=== PATIENT | female | born 1995 | race Caucasian/White ===

== ENCOUNTER 2017-05-31 23:13 | Emergency (ER) | payer BC, OTHER ==
[2017-05-31 23:31] VITALS: BP 108/71; PULSE 112; TEMP 99.2; BMI 20.5
--- NOTE | 2017-06-01 00:44 | PDOC ---
History of Present Illness - General Chief Complaint: Cold Symptoms Stated Complaint: COLD SYMPTOMS Time Seen by Provider: 06/01/17 00:34 History Source: Patient Exam Limitations: No Limitations - History of Present Illness Initial Comments: 06/01/17 00:52 Best Contact: Pmhx: N/A Pshx: N/A Allergies: NKDA LMP: 05/30/2017 21-year-old female presents to the emergency department complaining of frontal headache, sore throat, subjective fever/chills, general malaise without nausea/ vomiting, dizziness, lightheadedness, facial pains, nasal congestion, rhinorrhea , earaches, neck stiffness/pain, back pains, chest pain, shortness of breath, abdominal pains, urinary symptoms. Patient states she is able to drink and eat without any difficulties but his throat is sore. Timing/Duration: reports: yesterday Past History - Past Medical History Allergies/Adverse Reactions: Allergies Allergy/AdvReac Type Severity Reaction Status Date / Time amoxicillin Allergy Verified 03/20/17 02:38 Home Medications: Ambulatory Orders NK [No Known Home Medication] 06/01/17 COPD: No GI Disorders: Yes (chronic pancreatitis) - Suicide/Smoking/Psychosocial Hx Smoking History: Never smoked Have you smoked in the past 12 months: No Information on smoking cessation initiated: No Hx Alcohol Use: No Drug/Substance Use Hx: No Review of Systems - Review of Systems Able to Perform ROS?: Yes Comments:: 06/01/17 00:54 CONSTITUTIONAL: +fever, chills, diaphoresis, generalized weakness, malaise Absent: diaphoresis, loss of appetite HEENT: Absent: rhinorrhea, nasal congestion, throat pain, throat swelling, difficulty swallowing, mouth swelling, ear pain, eye pain, visual Changes CARDIOVASCULAR: Absent: chest pain, loss of consciousness, palpitations, irregular heart rate, peripheral edema RESPIRATORY: Absent: cough, shortness of breath, dyspnea with exertion, orthopnea, wheezing, stridor, hemoptysis GASTROINTESTINAL: Absent: abdominal pain, abdominal distension, nausea, vomiting, diarrhea, constipation, melena, hematochezia GENITOURINARY: Absent: dysuria, frequency, urgency, hesitancy, hematuria, flank pain, genital pain MUSCULOSKELETAL: Absent: myalgia, arthralgia, joint swelling SKIN: Absent: rash, itching, pallor HEMATOLOGIC/IMMUNOLOGIC: Absent: easy bleeding, easy bruising, lymphadenopathy, frequent infections ENDOCRINE: Absent: unexplained weight gain, unexplained weight loss, heat intolerance, cold intolerance NEUROLOGIC: +frontal nolasco Absent: focal weakness or paresthesias, dizziness, unsteady gait, seizure, mental status changes, bladder or bowel incontinence Is the patient limited Japanese proficient: No *Physical Exam - Vital Signs Last Vital Signs Temp Pulse Resp BP Pulse Ox 99.2 F 112 H 20 108/71 98 05/31/17 23:29 05/31/17 23:29 05/31/17 23:29 05/31/17 23:29 05/31/17 23:29 - Physical Exam Comments: 06/01/17 00:55 GENERAL: Well developed, well nourished. Awake and alert. No acute distress. HEENT: Throat/tonsillar +erythema Normocephalic, atraumatic. PERRLA, EOMI. No conjunctival pallor. Sclera are non- icteric. Moist mucous membranes. NECK: Supple. Full ROM. No JVD. Carotid pulses 2+ and symmetric, without bruits. No thyromegaly. No lymphadenopathy. CARDIOVASCULAR: Regular rate and rhythm. No murmurs, rubs, or gallops. Distal pulses are 2+ and symmetric. PULMONARY: No evidence of respiratory distress. Lungs clear to auscultation bilaterally. No wheezing, rales or rhonchi. ABDOMINAL: Soft. Non-tender. Non-distended. No rebound or guarding. No organomegaly. Normoactive bowel sounds. MUSCULOSKELETAL Normal range of motion at all joints. No bony deformities or tenderness. No CVA tenderness. EXTREMITIES: No cyanosis. No clubbing. No edema. No calf tenderness. SKIN: Warm and dry. Normal capillary refill. No rashes. No jaundice. NEUROLOGICAL: Alert, awake, appropriate. Cranial nerves 2-12 intact. No deficits to light touch and temperature in face, upper extremities and lower extremities. No motor deficits in the in face, upper extremities and lower extremities. Normoreflexic in the upper and lower extremities. Normal speech. Toes are down- going bilaterally. Gait is normal without ataxia. *DC/Admit/Observation/Transfer Diagnosis at time of Disposition: Influenza, Viral pharyngitis Fever Qualifiers: Fever type: unspecified Qualified Code(s): R50.9 - Fever, unspecified - Discharge Dispostion Condition at time of disposition: Stable Admit: No - Referrals Referrals: John Walker MD [Staff Physician] - - Patient Instructions Printed Discharge Instructions: DI for Fever (Symptom) -- Adult, Influenza, DI for Viral Pharyngitis Additional Instructions: Increase fluids Take Tylenol alternating with Motrin as needed for pain or fever Return back to the emergency department for severe/persistent or worsening symptoms Follow-up with your physician within 48 hours - Post Discharge Activity
[2017-06-01] MEDS ORDERED: OSELTAMIVIR PHOSPHATE 75 MG CAPSULE PO ONE (01:21)
== END 2017-06-01 01:35 | disposition home or self-care (01) ==
LOC: JERFT 23:13
DX: J11.1 Influenza due to unidentified influenza virus with other respiratory manifestations (principal)
CPT/HCPCS: 87070; 87077; 87430; 99281-25

== ENCOUNTER 2017-06-17 10:55 | Observation (INO) | payer BC, OTHER ==
[2017-06-17 11:18] VITALS: BMI 20.5
[2017-06-17] MEDS ORDERED: CLINDAMYCIN 600MG PREMIX IVPB 600 MG/50 ML BAG IVPB ONE (11:41)
[2017-06-17] MEDS ORDERED: CIPROFLOXACIN 400 MG/D5W 400 MG/200 ML IVPB IVPB ONE (11:41)
[2017-06-17] MEDS ORDERED: CLINDAMYCIN PHOSPHATE 600 MG/4 ML VIAL ONE (11:48)
--- NOTE | 2017-06-17 12:12 | PDOC ---
History of Present Illness - General Chief Complaint: Bite Stated Complaint: CAT BITE Time Seen by Provider: 06/17/17 11:01 - History of Present Illness Initial Comments: 06/17/17 12:36 Chief complaint: Cat bite History of present illness: This is a 21-year-old female with no significant past medical history tetanus up-to-date who presents to the emergency department status post Date to her right index finger. Patient works at a [employer] office she was bit by a domiciled cat with unknown vaccination status. She sustained for small puncture bites to her right index finger no other injury sustained. Complaining of mild 5 out of 10 throbbing pain persistent constant no exacerbating or alleviating factors non-radiating Past History - Past Medical History Allergies/Adverse Reactions: Allergies Allergy/AdvReac Type Severity Reaction Status Date / Time amoxicillin Allergy Verified 03/20/17 02:38 Home Medications: Ambulatory Orders NK [No Known Home Medication] 06/17/17 COPD: No GI Disorders: Yes (chronic pancreatitis) - Immunization History TDAP Vaccination: Yes - Suicide/Smoking/Psychosocial Hx Smoking History: Never smoked Have you smoked in the past 12 months: No Hx Alcohol Use: No Drug/Substance Use Hx: No Substance Use Type: None Review of Systems - Review of Systems Comments:: 06/17/17 12:37 ROS: A complete review of 10 out of 10 review of systems is taken and is negative apart from what is previously mentioned below and in the HPI. *Physical Exam - Vital Signs Last Vital Signs Temp Pulse Resp BP Pulse Ox 98.5 F 80 15 115/77 100 06/17/17 10:58 06/17/17 10:58 06/17/17 10:58 06/17/17 10:58 06/17/17 10:58 - Physical Exam Comments: 06/17/17 12:38 Vitals: Triage Vital signs reviewed General Appearance: no acute distress, well nourished well developed, Head: Atraumatic, Cardiac: Regular rate and rhythym, no murmurs, no rubs, no gallops, Lungs: Clear to auscultation bilateral, good air movement bilaterally, Abdomen: Soft, non distended, normal bowel sounds, non tender to palpation Extremities: Full range of motion to all extremities, no cyanosis, clubbing, or edema, 2 small puncture wounds to the volar aspect of the right index finger 2 small puncture wounds to the dorsal aspect. Skin: Warm and dry, no rashes or lesions, no rash, no petechiae Neuro: AOX3; Cranial Nerves 2-12 grossly intact, Strength intact to all extremities, Sensation intact to all extremities,gait normal Psych: normal mood, normal affect ED Treatment Course - RADIOLOGY Radiology Studies Ordered: Category Date Time Status HAND- RIGHT [RAD] Stat Radiology 06/17/17 11:42 Ordered Medical Decision Making - Medical Decision Making 06/17/17 12:42 21 years old with cat bite to finger. Given high risk of potential deep tissue/tendon sheath infection will observe overnight with IV antibiotics Based on Allegra guidelines Cipro and Clinda ordered Dr. Alberto styles consulted. We'll observe overnight for further management. *DC/Admit/Observation/Transfer Diagnosis at time of Disposition: Cat bite Qualifiers: Encounter type: initial encounter Qualified Code(s): W55.01XA - Bitten by cat, initial encounter - Discharge Dispostion Condition at time of disposition: Good Admit: Yes - Referrals - Patient Instructions - Post Discharge Activity
[2017-06-17 13:04] LABS: BASO % 0.6 % (0-2.0); PLATELET COUNT 289 K/MM3 (134-434); RDW 12.4 % (11.6-15.6)
[2017-06-17 13:32] LABS: EOS % 1.7 % (0-4.5); HEMATOCRIT 41.2 % (32.4-45.2); HEMOGLOBIN 13.7 GM/dl (10.7-15.3); LYMPH % 25.5 % (8-40); MCH 29.6 pg (25.7-33.7); MCHC 33.4 g/dl (32.0-36.0); MEAN CELL VOLUME 88.6 fl (80-96); MEAN PLT VOLUME 9.4 fl (7.5-11.1); MONO % 6.4 % (3.8-10.2); NEUT % 65.8 % (42.8-82.8); RBC 4.64 M/mm3 (3.60-5.2); WHITE BLOOD COUNT 7.4 K/mm3 (4.0-10.8)
[2017-06-17 13:44] LABS: ALBUMIN 4.7 g/dl (3.5-5.0); ALK PHOS 73 U/L (32-92); ANION GAP 7 (8-16); BLOOD UREA NITROGEN 10 mg/dl (7-18); CALCIUM 9.6 mg/dl (8.4-10.2); CHLORIDE 102 mmol/L (98-107); CO2 24 mmol/L (22-28); CREATININE < 0.8 mg/dl (0.6-1.3); GLUCOSE,RANDOM 81 mg/dl (74-106); SGOT/AST 24 U/L (10-42); SGPT/ALT 26 U/L (10-40); SODIUM 133 mmol/L (136-145); TOT PROT 8.6 g/dl (6.4-8.3)
[2017-06-17] MEDS ORDERED: ONDANSETRON 4 MG/2 ML VIAL IVPB ONE (14:05)
--- NOTE | 2017-06-17 14:13 | HP ---
CHIEF COMPLAINT: cat bite PCP: Monique HISTORY OF PRESENT ILLNESS: Patient is a 21 y/o female with a past medical history of idiopathic pancreatits (childhood). 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 Patient reports the cat resides at home with branch coordinator. ER course was notable for: (1) xray of right hand, no retained foreign body Recent Travel: none PAST MEDICAL HISTORY: idiopathic pancreatitis (childhood) PAST SURGICAL HISTORY: none Social History: resides at home with mother Smoking: none Alcohol: none Drugs: none Family History: non contributory Allergies amoxicillin Allergy (Verified 03/20/17 02:38) HOME MEDICATIONS: Home Medications Medication Instructions Recorded NK [No Known Home Medication] 06/17/17 REVIEW OF SYSTEMS CONSTITUTIONAL: Absent: fever, chills, diaphoresis, generalized weakness, malaise, loss of appetite, weight change HEENT: Absent: rhinorrhea, nasal congestion, throat pain, throat swelling, difficulty swallowing, mouth swelling, ear pain, eye pain, visual changes CARDIOVASCULAR: Absent: chest pain, syncope, palpitations, irregular heart rate, lightheadedness , peripheral edema RESPIRATORY: Absent: cough, shortness of breath, dyspnea with exertion, orthopnea, wheezing, stridor, hemoptysis GASTROINTESTINAL: Absent: abdominal pain, abdominal distension, nausea, vomiting, diarrhea, constipation, melena, hematochezia GENITOURINARY: Absent: dysuria, frequency, urgency, hesitancy, hematuria, flank pain, genital pain MUSCULOSKELETAL: Present: finger pain Absent: myalgia, arthralgia, joint swelling, back pain, neck pain SKIN: Absent: rash, itching, pallor HEMATOLOGIC/IMMUNOLOGIC: Absent: easy bleeding, easy bruising, lymphadenopathy, frequent infections ENDOCRINE: Absent: unexplained weight gain, unexplained weight loss, heat intolerance, cold intolerance NEUROLOGIC: Absent: headache, focal weakness or paresthesias, dizziness, unsteady gait, seizure, mental status changes, bladder or bowel incontinence PSYCHIATRIC: Absent: anxiety, depression, suicidal or homicidal ideation, hallucinations. PHYSICAL EXAMINATION Vital Signs - 24 hr 06/17/17 06/17/17 10:58 13:46 Temperature 98.5 F 98.0 F Pulse Rate 80 72 Respiratory 15 22 Rate Blood Pressure 115/77 121/69 O2 Sat by Pulse 100 Oximetry (%) GENERAL: Awake, alert, and fully oriented, in no acute distress. HEAD: Normal with no signs of trauma. EYES: Pupils equal, round and reactive to light, extraocular movements intact, sclera anicteric, conjunctiva clear. No lid lag. EARS, NOSE, THROAT: Ears normal, nares patent, oropharynx clear without exudates. Moist mucous membranes. NECK: Normal range of motion, supple without lymphadenopathy, JVD, or masses. LUNGS: Breath sounds equal, clear to auscultation bilaterally. No wheezes, and no crackles. No accessory muscle use. HEART: Regular rate and rhythm, normal S1 and S2 without murmur, rub or gallop. ABDOMEN: Soft, nontender, not distended, normoactive bowel sounds, no guarding, no rebound, no masses. No hepatomegaly or splenomegaly. MUSCULOSKELETAL: Normal range of motion at all joints. No bony deformities or tenderness. No CVA tenderness. UPPER EXTREMITIES: 2+ pulses, warm, well-perfused. No cyanosis. No clubbing. No peripheral edema. LOWER EXTREMITIES: 2+ pulses, warm, well-perfused. No calf tenderness. No peripheral edema, right hand, second digit 2 punture wounds noted to dorsal aspect and 2 puncture wounds noted to volar aspect of digit, no erythema noted patient is able to flex and extend the digit w/o any difficulty. NEUROLOGICAL: Cranial nerves II-XII intact. Normal speech. Normal gait. PSYCHIATRIC: Cooperative. Good eye contact. Appropriate mood and affect. SKIN: Warm, dry, normal turgor, no rashes or lesions noted, normal capillary refill. Laboratory Results - last 24 hr 06/17/17 06/17/17 06/17/17 12:10 12:20 12:20 WBC 7.4 RBC 4.64 Hgb 13.7 Hct 41.2 MCV 88.6 MCH 29.6 MCHC 33.4 RDW 12.4 Plt Count 289 MPV 9.4 Neutrophils % 65.8 Lymphocytes % 25.5 Monocytes % 6.4 Eosinophils % 1.7 Basophils % 0.6 Sodium 133 L Potassium 4.0 Chloride 102 Carbon Dioxide 24 Anion Gap 7 L BUN 10 Creatinine < 0.8 Creat Clearance w eGFR > 60 Random Glucose 81 Calcium 9.6 Total Bilirubin 1.0 AST 24 ALT 26 Alkaline Phosphatase 73 Total Protein 8.6 H Albumin 4.7 Urine HCG, Qual Negative ASSESSMENT/PLAN: f/e/n - regular diet ppx - oob - less than 2 mn stay - pepcid dispo: pt requires obsv admission for 24 hours Problem List - Problem (1) Cat bite Assessment/Plan: - xray of right hand reviewed, continue cipro and clinda - monitor cbc and fever curve - appreciate hand surgery consult Code(s): W55.01XA - BITTEN BY CAT, INITIAL ENCOUNTER Qualifiers: Encounter type: initial encounter Qualified Code(s): W55.01XA - Bitten by cat, initial encounter Visit type - Emergency Visit Emergency Visit: Yes ED Registration Date: 06/17/17 Care time: The patient presented to the Emergency Department on the above date and was hospitalized for further evaluation of their emergent condition. - New Patient This patient is new to me today: Yes Date on this admission: 06/18/17 - Critical Care Critical Care patient: No Hospitalist Screening - Colonoscopy Questionnaire Colonoscopy Questionnaire: Colonoscopy Questionnaire - Patient: 50 - 75 years old and never had a screening colonoscopy: No History of colon or rectal polyps, or CA: No History of IBD, Crohn's disease or UC: No History of abdominal radiation therapy as a child: No - Relative: 1 with colon or rectal CA, or polyps at age 60 or younger: No Colon or rectal CA diagnosed at age 45 or younger: No Multiple relatives with colon or rectal CA: No - Outcome: Screening Result: Negative Screen
[2017-06-17] MEDS ORDERED: ACETAMINOPHEN 325 MG TABLET (FP) PO PRN (14:30)
[2017-06-17] MEDS ORDERED: IBUPROFEN 600 MG TABLET (FP) PO PRN (14:31)
[2017-06-17] MEDS: LACTOBACILLUS ACIDOPHILUS 1 EACH TAB (FP) PO SCH (14:45)
[2017-06-17] MEDS ORDERED: DIPHTH,PERTUSS(ACELL),TET VAC 0.5 ML VIAL IM ONE (15:00)
[2017-06-17] MEDS: CLINDAMYCIN 600MG PREMIX IVPB 600 MG/50 ML BAG IVPB SCH (17:40)
[2017-06-17] MEDS: CIPROFLOXACIN 400 MG/D5W 400 MG/200 ML IVPB IVPB SCH (21:27)
[2017-06-17] MEDS: FAMOTIDINE 20 MG TABLET PO SCH (21:27)
[2017-06-17] MEDS: ONDANSETRON *ODT* 4 MG TABLET SL PRN (21:28)
[2017-06-18] MEDS: CLINDAMYCIN 600MG PREMIX IVPB 600 MG/50 ML BAG IVPB SCH ×2 (02:00→09:49)
[2017-06-18 06:02] VITALS: BP 98/53; PULSE 85; TEMP 98.1
[2017-06-18] MEDS: CIPROFLOXACIN 400 MG/D5W 400 MG/200 ML IVPB IVPB SCH (09:49)
[2017-06-18] MEDS: ONDANSETRON *ODT* 4 MG TABLET SL PRN (09:49)
[2017-06-18] MEDS: LACTOBACILLUS ACIDOPHILUS 1 EACH TAB (FP) PO SCH (09:50)
[2017-06-18] MEDS: FAMOTIDINE 20 MG TABLET PO SCH (09:50)
--- NOTE | 2017-06-18 12:21 | DS ---
Physical Exam: SUBJECTIVE: Patient seen and examined, denies any pain to the right 2nd digit, patient is able to flex and extend the digit without any difficulty, patient denies any paresthesia to the extremity. OBJECTIVE: Patient is a 21 y/o female with a past medical history of idiopathic pancreatits (childhood). 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 Patient reports the cat resides at home with tool supervisor. ER course was notable for: (1) xray of right hand, no retained foreign body Vital Signs Period Temp Pulse Resp BP Sys/Petty Pulse Ox Last 24 Hr 98.0 F-99.4 F 72-85 20-22 98-150/53-84 98 PHYSICAL EXAM GENERAL: The patient is awake, alert, and fully oriented, in no acute distress. HEAD: Normal with no signs of trauma. EYES: PERRL, extraocular movements intact, sclera anicteric, conjunctiva clear. ENT: Ears normal, nares patent, oropharynx clear without exudates, moist mucous membranes. NECK: Trachea midline, full range of motion, supple. LUNGS: Breath sounds equal, clear to auscultation bilaterally, no wheezes, no crackles, no accessory muscle use. HEART: Regular rate and rhythm, S1, S2 without murmur, rub or gallop. ABDOMEN: Soft, nontender, nondistended, normoactive bowel sounds, no guarding, no rebound, no hepatosplenomegaly, no masses. EXTREMITIES: 2+ pulses, warm, well-perfused, no edema. NEUROLOGICAL: Cranial nerves II through XII grossly intact. Normal speech, gait not observed. PSYCH: Normal mood, normal affect. SKIN: Warm, dry, normal turgor, no rashes or lesions noted. LABS Laboratory Results - last 24 hr 06/17/17 06/17/17 06/17/17 12:10 12:20 12:20 WBC 7.4 RBC 4.64 Hgb 13.7 Hct 41.2 MCV 88.6 MCH 29.6 MCHC 33.4 RDW 12.4 Plt Count 289 MPV 9.4 Neutrophils % 65.8 Lymphocytes % 25.5 Monocytes % 6.4 Eosinophils % 1.7 Basophils % 0.6 Sodium 133 L Potassium 4.0 Chloride 102 Carbon Dioxide 24 Anion Gap 7 L BUN 10 Creatinine < 0.8 Creat Clearance w eGFR > 60 Random Glucose 81 Calcium 9.6 Total Bilirubin 1.0 AST 24 ALT 26 Alkaline Phosphatase 73 Total Protein 8.6 H Albumin 4.7 Urine HCG, Qual Negative HOSPITAL COURSE: Patient was admitted from the emergency department to observation for cat bite to the right 2nd digit. She was treated with 24 hours of cipro and clindamycin, no leukocytosis was noted and patient remained afebrile. Hand surgeon, Dr Aleman was consulted by ED physician plan - discharge home with 7 days of clinda and cipro - strict follow up with PCP within 2 days for a wound check - return precautions reviewed Date of Admission:06/17/17 Date of Discharge: 06/18/17 Minutes to complete discharge: 45 Discharge Summary Reason For Visit: CAT BITE Current Active Problems Cat bite (Acute) Condition: Good - Instructions Diet, Activity, Other Instructions: keep punctures wounds clean and dry at all times wash with mild soap and water only continue ciprofloxacin and clindamycin for the next 7 days take antibiotics with food continue bacid daily please follow up with your primary care physician within 2 days for a wound check if any new or persistent symptoms develop please return to the emergency department Referrals: Bennett Marroquin MD [Staff Physician] - Blanca Amaya MD [Staff Physician] - 06/21/17 - Home Medications Comprehensive Discharge Medication List: Ambulatory Orders NK [No Known Home Medication] 06/17/17 Problem List - Problems (1) Cat bite Code(s): W55.01XA - BITTEN BY CAT, INITIAL ENCOUNTER Qualifiers: Encounter type: initial encounter Qualified Code(s): W55.01XA - Bitten by cat, initial encounter This patient is new to me today: Yes Date on this admission: 06/18/17 Emergency Visit: No Critical Care patient: No - Discharge Referral Referred to [facility] No
--- NOTE | 2017-06-19 01:17 | EKG ---
Test Reason : Blood Pressure : / mmHG Vent. Rate : 070 BPM Atrial Rate : 070 BPM P-R Int : 180 ms QRS Dur : 082 ms QT Int : 388 ms P-R-T Axes : 065 090 048 degrees QTc Int : 419 ms SINUS RHYTHM RSR' OR QR PATTERN IN V1 SUGGESTS RIGHT VENTRICULAR CONDUCTION DELAY NO PREVIOUS ECGS AVAILABLE Confirmed by ELIZABETH GALARZA MD ([id number]) on 06/19/2017 1:16:46 AM Referred By: BRENDA DEXTER Confirmed By:ELIZABETH GALARZA MD
== END 2017-06-18 12:55 | disposition home or self-care (01) ==
LOC: FER 10:55 → FM/S 13:19
PROVIDERS: ADMIT Internal Medicine; ATTEND Nurse Practitioner Family
PROC: 3E03329 Introduction of Other Anti-infective into Peripheral Vein, Percutaneous Approach (ICD-10-PCS; principal; 2017-06-17)
PROC: 3E033GC Introduction of Other Therapeutic Substance into Peripheral Vein, Percutaneous Approach (ICD-10-PCS; 2017-06-17)
DX: S61.250A Open bite of right index finger without damage to nail, initial encounter (principal); W55.01XA Bitten by cat, initial encounter; Y93.89 Activity, other specified; Y92.89 Other specified places as the place of occurrence of the external cause; Z88.0 Allergy status to penicillin
CPT/HCPCS: 36415; 73130-TC-RT-FY; 80053; 84703; 85025; 93005; 99285-25; G0378

== ENCOUNTER 2020-01-21 12:42 | Emergency (ER) | payer BC, OTHER ==
[2020-01-21 12:54] VITALS: BMI 18.8
--- OUTSIDE RECORDS SUMMARY | 2020-01-21 12:58 | XMS ---
:[address] [facility] Care Team Providers Name Role Phone ROBIN JEAN-BAPTISTE Unavailable Unavailable Agugua-Anyene Unavailable Julito Unavailable NATE Unavailable Unavailable PEDRO-VARNADERNELLY Unavailable Unavailable Pedro-Nadeemtheron Unavailable CHAGO Unavailable Unavailable DAVID Unavailable Unavailable Nate PA Unavailable + Nate PA Unavailable + John BLACK Unavailable Unavailable Chago Unavailable Chago Unavailable David Unavailable David Unavailable David Unavailable WAYNE Unavailable WAYNE Unavailable WAYNE Unavailable WAYNE Unavailable WAYNE Unavailable WAYNE Unavailable BLACK Unavailable BLACK Unavailable Jude Unavailable Yoon Unavailable Kipoliongo, Michelle Unavailable Kipoliongo, Michelle Unavailable Kipoliongo, Michelle Unavailable Kipoliongo, Michelle Unavailable Kipoliongo, Michelle Unavailable Kipoliongo, Michelle Unavailable Nwigwe, O. Unavailable [facility] Unavailable Unavailable Leopoldo Unavailable Leopoldo Unavailable JULITO Unavailable Unavailable AGUGUA-ANYENE Unavailable Unavailable LEOPOLDO Unavailable Unavailable YOON Unavailable Unavailable Re-disclosure Warning The records that you are about to access may contain information from federally- assisted alcohol or drug abuse programs. If such information is present, then the following federally mandated warning applies: This information has been disclosed to you from records protected by federal confidentiality rules (42 CFR part 2). The federal rules prohibit you from making any further disclosure of this information unless further disclosure is expressly permitted by the written consent of the person to whom it pertains or as otherwise permitted by 42 CFR part 2. A general authorization for the release of medical or other information is NOT sufficient for this purpose. The Federal rules restrict any use of the information to criminally investigate or prosecute any alcohol or drug abuse patient.The records that you are about to access may contain highly sensitive health information, the redisclosure of which is protected by Article 27-F of the [facility] Public Health law. If you continue you may haveaccess to information: Regarding HIV / AIDS; Provided by facilities licensed or operated by the [facility] Office of Mental Health; or Provided by the [facility] Office for People With Developmental Disabilities. If such information is present, then the following [facility] mandated warning applies: This information has been disclosed to you from confidential records which are protected by state law. State law prohibits you from making any further disclosure of this information without the specific written consent of the person to whom it pertains, or as otherwise permitted by law. Any unauthorized further disclosure in violation of state law may result in a fine or [place] health [facility] [place] sentence or both. A general authorization for the release of medical or other information is NOT sufficient authorization for further disclosure. Allergies and Adverse Reactions Type Description Substance Reaction Status Data Source(s ) NO KNOWN DRUG ALLERGIES NO KNOWN DRUG ALLERGIES NEXTGEN ([facility] HYDROMORPHONE HCL HYDROMORPHONE HCL [facility]EXTGEN ([facility] [place] [facility] AMOXICILLIN Amoxicillin [facility] ([facility] [place] ) Encounters Encounter Providers Location Date Indications Data Source(s ) Outpatient 11/11/2019 [facility] ) AM EDT Outpatient 11/10/2019 [facility] ) AM EDT Unlisted 10/24/2019 NETSMART evaluation and 09:40:00 (Access: management PM EDT Supports for service Living) Outpatient 09/21/2019 [facility] ([facility] ) AM EDT Outpatient 09/20/2019 [facility] ([facility] ) AM EDT Outpatient Att[facility]: [facility] 08/07/2019 [facility] 09:01:26 [facility] Outpatient Att[facility]: [facility] 08/07/2019 [facility] 08:24:00 ([facility]) Outpatient Attender: [facility] 08/07/2019 [facility] 08:22:01 ([facility]) 08/01/2019 Naresh Matias 10:38:51 AM EDT Attender: Rudolph 08/01/2019 Naresh gonzales NwigweAttender: 10:37:00 Lamin Roque AM EDT - 08/01/2019 08:53:00 PM EDT Attender: Robin 08/01/2019 Naresh [facility] KipoliongoAdmitt 06:46:14 er: Robin AM EDT - [place] 08/04/2019 03:15:00 PM EDT Attender: ROBIN 3SOUTH-6NORTH 08/01/2019 [facility] KIPOLIONGOAdmitt 05:30:00 er: ROBIN AM EDT - POL[place] 08/04/2019 03:15:00 PM EDT Patient discharged. Attender: Rahelgabriel 06/24/2019 02:35:16 PM [facility] OwensAdmitter: [facility] EDT - 06/24/2019 David 03:46:00 PM EDT Attender: RAHELGABRIEL [address] [place] [address] 06/24/2019 01:26:59 PM [facility] OWENSAdmitter: [facility] - 06/24/2019 DAVID 03:46:00 PM EDT Patient discharged. Outpatient 04/22/2019 07:30:00 [facility] ([facility]) Outpatient 04/21/2019 07:22:00 [facility]EXTG EN ([facility]) Outpatient 04/16/2019 06:56:00 [facility]EXTG EN ([facility]) Outpatient 04/15/2019 07:19:00 [facility]EXTG EN ([facility]) Attender: Ayla 03/30/2019 11:03:24 [facility] EST - 03/30/2019 11:02:20 AM EST Attender: AYLA FRANKLIN-POAlvaro 03/30/2019 10:32:20 [facility] AM EST - 03/30/2019 01:51:05 PM EST Attender: Марина 03/27/2019 10:02:19 [facility] EST - 03/27/2019 03:27:00 PM EST [facility] 03/27/2019 09:41:00 [facility] AM EST - 03/27/2019 03:27:00 PM EST Patient discharged. Attender: OLAMIDE 03/14/2019 Naresh BLACK 12:28:39 PM EST - 03/14/2019 11:59:00 PM EST Attender: OLAMIDE FRANKLIN-POB 03/14/2019 [facility] Polly BLACK 10:50:27 AM EST [facility] 03/14/2019 [email or web address] 12:00:00 AM EST [facility] [employer]) Attender: OLAMIDE 02/20/2019 Naresh BLACK 01:37:20 PM EST - 02/20/2019 11:59:00 PM EST Attender: OLAMIDE FIGUEROA SDS-POB US 02/20/2019 Denise Matias WAYNE 10:14:07 AM EST Attender: 02/17/2019 [facility] Alevism Chago 07:07:39 PM EST - 02/17/2019 07:16:00 PM EST Attender: [address] [place] [address] ED 02/17/2019 [place] [facility] VIVI ABELO 04:32:00 PM EST - 02/17/2019 07:16:00 PM EST Patient discharged. [facility] 02/14/2019 eCW2 ([facility] 12:00:00 AM EST Medical) Attender: Shivam 02/11/2019 Naresh CURRY 02:31:33 PM EDT - 03/08/2019 06:16:57 PM EST Attender: SHIVAM FIGUEROA UC-POB UC 02/11/2019 [facility] NATE 01:33:11 PM EDT Attender: [facility] 05[facility]27[facility]45 PM EDT - 02/03/2019 07:47:00 PM EDT Attender: [address] [place] [address] ED 02/03/2019 [facility] DRUZE CHAGO 05:05:00 PM EDT - 02/03/2019 07:47:00 PM EDT Patient discharged. Outpatient 01/26/2019 06:50:00 NEXTG EN ([facility]) Outpatient 01/25/2019 06:49:00 [facility]EXTG EN ([facility]) Outpatient [facility] 01/24/2019 12:00:00 e CW3 ([facility] A28 AM EDT - 01/24/2019 Health Care) 12:00:00 AM EDT Outpatient 01/08/2019 06:19:00 NEXTG EN ([facility] AM [facility]T [facility]) Outpatient 01/07/2019 06:33:00 [facility]EXT[facility] EN ([facility]) Outpatient 01/06/2019 06:37:00 NEXTG EN ([facility]T [facility]) Attender: Shazia 01/02/2019 04:56:35 [facility] PM EDT - 01/02/2019 enrike: Марина 05:30:00 PM EDT Leopoldo Attender: SHAZIA [address] [place] [address] ED 01/02/2019 03:09:00 [facility] PM EDT - 01/02/2019 enrike: МАРИНА 05:30:00 PM EDT LEOPOLDO Patient discharged. Attender: Robin 12/16/2018 01:22:[address] [facility] 12/16/2018 11:59:00 PM EDT Attender: ROBIN FIGUEROA [facility] 12/16/2018 12:40:15 PM EDT [facility] 12/14/2018 12:00:00 AM EDT [facility] 12/14/2018 12:00:00 AM EDT Attender: Becca Yoon 12/04/2018 12:06:03 PM EDT [facility] - 12/04/2018 02:04:00 PM EDT Attender: BECCA YOON [address] [place] [address] ED 12/04/2018 12:00:00 PM EDT [facility] - 12/04/2018 02:04:00 PM EDT Patient discharged. Outpatient 12/04/2018 06:23:00 [facility] Attender: Camelia 12/02/2018 04:39:48 [facility] PM EDT - 12/02/2018 08:13:00 PM EDT Attender: CAMELIA [address] [place] [address] 12/02/2018 04:36:00 [facility] ED PM EDT - 12/02/2018 08:13:00 PM EDT Patient discharged. [address] [place] [address] ED 12/01/2018 08:54:00 PM EDT - 12:05:00 [facility] EDT Patient discharged. Medications Medication Brand Start Product Dose Route Administrative Pharmacy [facility] Indications Reaction Description Data Name Date Form Instructions Instructions Source(s) Acetaminoph oxycod Oral complet Take 1 [place] en 325 MG / one-ac 2020 {tbl} ed tablet by Health Oxycodone etamin 12:00: mouth every Hydrochlori ophen 00 AM 6 (six) de 5 MG (PERCO EDT hours as Oral Tablet CET) needed for oxycodone-a 5-325 Pain. Max cetaminophe MG per Daily n tablet Amount: 4 (PERCOCET) tablets. 5-325 MG per tablet Take 1 tablet by mouth every 6 (six) jocelyn rs as needed for Pain. Max Daily Amount: 4 tablets. Docusate docusate 08/04/2019 100 mg Oral completed Take 100 [place] Sodium 100 sodium 100 12:00:00 AM m g by Health MG Oral MG CAPS EDT mouth 2 Capsule (two) docusate times sodium 100 daily MG CAPS for 10 days. Take 100 mg by mouth 2 (two) times daily for 10 days. Ibuprofen 600 MG ibuprofen 08/04/2019 600 Oral completed Take 1 [place] Oral Tablet (ADVIL,MOTRIN) 12:00:00 AM mg tablet Health ibuprofen 600 MG tablet EDT by (ADVIL,MOTRIN) mouth 600 MG tablet every 6 (six) hours as needed for up to 10 days. Take 1 tablet by mouth every 6 (six) jocelyn rs as needed for up to 10 days. ferrous ferrous 08/03/2019 324 mg Oral completed 3 24 mg, [place] gluconate gluconate 05:00:00 PM Leeanne corley 2 Health 324 MG Oral (FERGON) EDT TIMES Tablet tablet 324 DAILY ferrous mg WITH gluconate MEALS, (FERGON) First tablet 324 dose on mg Yasmine 08/03/19 at 1700, For 30 days Medication administered onsite [facility] [id number] 08/02/2019 1 Oral completed 1 tablet, Oral, [place] multivitamin 10:00:00 AM {tbl} ABBY Y, First dose on Health tablet 1 EDT 08/02/19 at 1 000, tablet For 30 days
Beg in when normal bowel activity resumes.
Post-op Medication administered onsite 0.4 ML enoxaparin 08/02/2019 40 Subcutaneous completed 40 mg, [place] Enoxaparin (LOVENOX) 10:00:00 AM mg [place] bcutaneous, Health sodium 100 injection EDT DAILY, Fi rst MG/ML 40 mg dose on Wed Prefilled 08/02/19 at Syringe 1000, For 5 enoxaparin days, Post-op (LOVENOX) injection 40 mg Medication administered onsite Diphenhydramine diphenhydrAMINE 08/02/2019 50 Oral complet ed 50 mg, [place] Hydrochloride 25 (BENADRYL) 04:29:01 AM mg Oral, Health MG Oral Capsule capsule 50 mg EDT EVERY 6 diphenhydrAMINE HOURS (BENADRYL) PRN, capsule 50 mg Itching, Starting Wed08/02/19 at 0429, For 30 days Medication administered onsite Oxytocin [address]-64 08/01/2019 125 Intravenous comp leted 125 mL/hr, Intravenous, at [place] (PITOCIN) 11:30:00 PM mL/h 125 mL/h r, CONTINUOUS, Health 20 units EDT Starting 07/12 at in LR 1000 2330, For 30 mL days
Oxytocin to be start ed AFTER delivery.S tart at an initial rate o f 999 mL/hr for 30 minutes (VTBI: 500 mL), foll owed by 125 mL/hr. May titrate up or down a s needed based on fund al tone/bleeding.
Po st-op Medication administered onsite Docusate docusate 08/01/2019 100 Oral completed 1 00 mg, Oral, 2 TIMES [place] Sodium 100 sodium 11:30:00 PM mg DAILY , First dose on Health MG Oral (COLACE) EDT Wed08/01/19 a t 2330, Capsule capsule For 30 days
Hold docusate 100 mg for sodium diarrhea.
Post- op (COLACE) capsule 100 mg Medication administered onsite Acetaminophen acetaminophen 08/01/2019 650 Oral completed 650 mg, Oral, [place] 325 MG Oral (TYLENOL) 11:24:25 PM mg E VERY 6 HOURS PRN, Health Tablet tablet 650 mg EDT Headaches , Mild acetaminophen pain (1-3), First (TYLENOL) agent for tablet 650 mg multi-modal pain management therapy, Starting Wed08/01/19 at 2324, For 30 days
Maximum dose of acetaminophen is 4000 mg from all sources in 24 hours.
Post-op Medication administered onsite Ibuprofen 600 ibuprofen 08/01/2019 600 Oral completed 600 mg, Oral, [place] MG Oral Tablet (ADVIL,MOTRIN) 11:24:25 PM mg EVERY 6 HOURS PRN, Health ibuprofen tablet 600 mg EDT Modera te pain (ADVIL,MOTRIN) (4-6), Mod erate tablet 600 mg pain (4-6), Starting Wed08/01/19 at 2324, For 30 days
Maximum dose of Ibuprofen is 2400mg from all sources in 24 hours.
Post-op Medication administered onsite Lanolin lanolin 08/01/2019 Topical completed Topical, EVERY 1 HOUR [place] 0.5 MG/MG ointment 11:24:25 PM PRN, Dry Skin, PRN for Health Topical EDT nipple discomfort , Ointment Starting 07/12 at lanolin 2324, For 30 ointment days
PRN for nipple discomfort.
Post- op Medication administered onsite 2 ML Rho(D) rho(d) 08/01/2019 300 Intramuscular completed 300 mcg, [place] Immune immune 09:15:00 PM ug Intramusc ular, Health Globulin 750 globulin EDT ONCE, e UNT/ML (RHOPHYLAC) 08/01/19 at Prefilled injection 2114, For 1 Syringe 300 mcg dose rho(d) immune globulin (RHOPHYLAC) injection 300 mcg Medication administered onsite ondansetron 08/01/2019 4 mg Oral completed [O rder 1 Start] [place] (ZOFRAN-ODT) 09:05:18 PM Name: ondansetron Health disintegrating EDT (ZOFRAN-OD T) tablet 4 mg disintegratin g tablet 4 mg Signed Summary: 4 mg, Oral, EVERY 6 HOURS PRN, Nausea, Vomiting, Starting Wed08/01/19 at 2105, For 30 days
Do not remove from blister until needed. Peel backing off the blister, do not push tablet through. Using only dry hands, place tablet on tongue to dissolve. Place tablet on tongue, it will disintegrate immediately - swallow with saliva; may also swallow with fluids as whole tablet.
PACU [Order 1 End] [Order 2 Start] Name: ondansetron (ZOFRAN) injection 4 mg Signed Summary: 4 mg, IV Push, EVERY 6 HOURS PRN, Nausea, Vomiting, Give if patient is NPO or vomiting., Starting Wed20 at 2104, For 30 days
If given IV Push, May be given undiluted and Push over 2 minutes.
PACU [Order 2 End] Medication administered onsite Acetaminophen acetaminophen 08/01/2019 1000 Intravenous completed 1,000 mg, [place] 10 MG/ML (OFIRMEV) 09:04:58 PM mg Intr avenous, Health Injectable injection EDT Administe r over Solution 1,000 mg 15 Minutes, 3 acetaminophen TIMES DAILY PRN, (OFIRMEV) Mild pain (1-3) , injection Starting Tue 1,000 mg 08/01/19 at 2103, For 5 doses
Maximum dose of acetaminophen is 4000 mg from all sources in 24 hours.
Medication administered onsite 1 ML Ketorolac ketorolac 08/01/2019 30 IV completed 30 mg, IV Push, [place] Tromethamine (TORADOL) 09:04:42 PM mg Push EVERY 6 HOURS Health 30 MG/ML injection EDT PRN, Mild p ain Cartridge 30 mg (1-3), Startin g ketorolac e 08/01/19 at (TORADOL) 2103, For 5 injection 30 days
If g iven mg IV Push, May be given undiluted and Push over 1 minute.
PACU Medication administered onsite 1 ML Naloxone naloxone 08/01/2019 0.2 IV completed 0.2 mg, IV Push, [place] Hydrochloride (NARCAN) 09:04:24 PM mg Push ONCE PRN, Opioid Health 0.4 MG/ML injection EDT Reversal, Starting Injection 0.2 mg Wed08/01/19 a t naloxone 2103, For 1 (NARCAN) dose
for injection 0.2 sedation sc ruthann mg greater than or equal to 4 and Respiratory Rate less than 8 per minuteNotify Anesthesiologist STAT.(If given IV Push, May be given undiluted and Push over 15 seconds.)
PACU Medication administered onsite Methylergonovine methylergonovine 08/01/2019 compl eted PRN, [place] Maleate 0.2 MG/ML (METHERGINE) 08:35:00 PM Starting Health Injectable injection EDT e Solution at 2034, methylergonovine Anesthes ia (METHERGINE) Intra-op injection Medication administered onsite Oxytocin [id number] 08/01/2019 completed CONTINUOUS [place] (PITOCIN) 20 08:33:00 PM PRN, Starting Health units in LR EDT Wed08/01/19 1000 mL at 2032, Anesthesia Intra-op Medication administered onsite Ephedrine ePHEDrine 08/01/2019 completed PRN, Starting [place] sulfate 50 Sulfate 08:31:00 PM Wed08/01/19 Health MG/ML injection EDT at 2030, Injectable Anesthesia Solution Intra-op ePHEDrine Sulfate injection Medication administered onsite morphine (PF) 8517-0051-86 08/01/2019 completed PRN, Starting [place] (DURAMORPH) 08:22:00 PM [facility] injection EDT at 2021, Anesthesia Intra-op Medication administered onsite bupivacaine 0.75% [id number] 08/01/2019 completed PRN, Starting [place] in dextrose 8.25% 08:22:00 PM Wed08/01/19 at [facility] (intrathecal) EDT 2021, (SENSORCAINE) Anesthesia 0.75-8.25 % Intra-op injection Medication administered onsite Clindamycin clindamycin 08/01/2019 900 Intravenous complete d 900 mg, [place] 18 MG/ML (CLEOCIN) 07:45:00 PM mg Intr avenous, [facility] Injectable 900 mg in 50 EDT Admini ster Solution mL IVPB over 60 clindamycin Minutes, (CLEOCIN) EVERY 8 900 mg in 50 HOURS, First mL IVPB dose on Wed08/01/19 at 1945, For 4 doses Medication administered onsite Acetaminophen acetaminophen 08/01/2019 650 Oral completed 650 mg, Oral, [place] 325 MG Oral (TYLENOL) 07:45:00 PM mg O NHE, [facility] Tablet tablet 650 mg EDT 08/01/19 a t 1945, acetaminophen For 1 (TYLENOL) dose
Maximum tablet 650 mg dose of acetaminophen is 4000 mg from all sources in 24 hours.
Medication administered onsite gentamicin 08/01/2019 5 mg/kg Intravenous completed 350 mg (rounded [place] (GARAMYCIN) 07:45:00 PM from 3 51.5 mg = Health 350 mg in EDT 5 mg /kg 0.9% sodium chloride 100 70.3 kg), mL IVPB Intravenous, Administer over 60 Minutes, EVERY 24 HOURS, First dose on Wed08/01/19 at 1945, For [address] an order for a random level to be drawn 12 hours after the start of the first dose. Before administration of next dose, contact the physician with the result to determine if an interval change is needed. Special instructions none
Medication administered onsite Acetaminophen acetaminophen 08/01/2019 completed Starting Wed [place] 325 MG Oral (TYLENOL) 325 07:43:24 PM 08/01/19 at Health Tablet MG tablet EDT 1943, For 1 acetaminophen dose
Del (TYLENOL) 325 [place], Ana Laura: MG tablet cabinet override
Medication administered onsite ondansetron [id number] 08/01/2019 4 mg IV completed 4 mg, IV [place] (ZOFRAN) 06:17:05 PM Push Push, GEM RY 6 Health injection 4 EDT HOURS PRN, mg Nausea, Vomiting, Starting Wed08/01/19 at 1817, For 3 days
If given IV Push, May be given undiluted and Push over 2 minutes.
Medication administered onsite oxytocin 88820-780-13 08/01/2019 Intravenous compl eted 0.5-42 dolly-units/min [place] (PITOCIN) 01:00:00 PM (0.5-42 mL/hr), Health 30 units EDT Intravenous, at 0.5-42 in 0.9% mL/hr, CONTINUOUS , sodium Starting Wed at chloride 1300, For 30 500 mL days
Start at 1 milliunits/min and increase by 2 milliunits/min (1 or 2 milliunits/min)e very 30 minutes until wil quate contraction pattern established (every 2 -3 minutes lasting 40-9 0 seconds). Consultati on with physician is required at 20milliunits/min. (Maximumdose is 42 milliunits/min). If uterine tachysystole or category 2 or 3 FHR tracing, may decreas e infusion rate or discontinue oxytocin and initiate appropriate uterine resuscitatio n techniques (Rate may be adjusted based on maternal and response)
Medication administered onsite oxytocin [id number] 08/01/2019 completed Starting Tue [place] (PITOCIN) 12:58:02 PM 08/01/19 at 1258, Health 30-0.9 EDT For 1 UT/500ML-% dose
Mcdono ugh, 30 units in Maryann: cab inet 0.9% sodium override
chloride 500 mL Medication administered onsite ropivacaine PCEA (2 08/01/2019 completed Starting Tue [place] mg/mL) (NAROPIN) 2 10:45:52 AM 08/01/19 at 1045, Health MG/ML in 50 mL syringe EDT Fo r 1 (preservative-free) dose< br>NWIGWE, Ebube: cabinet override
Medication administered onsite Calcium lactated 08/01/2019 1000 Intravenous completed at 999 mL/hr, [place] Chloride ringers 10:45:00 AM mL Intrav enous, Health 0.0014 infusion EDT ONCE, Tue MEQ/ML / 1,000 mL 08/01/19 at Potassium 1045, For 1 Chloride dose
15 to 0.004 30 minutes MEQ/ML / before epidural Sodium placement.
Chloride 0.103 MEQ/ML / Sodium Lactate 0.028 MEQ/ML Injectable Solution lactated ringers infusion 1,000 mL Medication administered onsite ropivacaine 08/01/2019 Epidural completed Epidural, [place] (NAROPIN)(PF) 10:45:00 AM CONT INUOUS, Health PCEA standard EDT Starting Tu e 100 mg in 50 mL 08/01/19 a t 1045, syringe For 3 days
After 4 hours, if patient persistently complains of inadequate analgesia, check pump for malfunction, verify pump settings with orders and assess integrity of IV site.Nurse may replace empty infusion syringes or infusion bags with new, pre-prepared solutions containing the same medication and concentration at the same rate.
Medication administered onsite lactated [id number] 08/01/2019 500 Intravenous completed 500 mL, [place] ringers 06:30:00 AM mL Intravenou s, Health bolus 500 EDT Administer mL over 2 Hours, ONCE, 08/01/19 at 0630, For 1 dose Medication administered onsite Calcium lactated 08/01/2019 100 Intravenous completed at 100 mL/hr, [place] Chloride ringers 06:30:00 AM mL/h Intrav enous, Health 0.0014 infusion EDT CONTINUOUS, MEQ/ML / Starting Tue Potassium 08/01/19 at Chloride 0630, For 3 0.004 MEQ/ML days / Sodium Chloride 0.103 MEQ/ML / Sodium Lactate 0.028 MEQ/ML Injectable Solution lactated ringers infusion Medication administered onsite NITROFURANTOIN, nitrofurantoin 03/27/2019 100 Oral complete d 100 mg, [place] MACROCRYSTALS 25 MG / (macrocrystal-monohydrate) 03:00:00 PM mg Oral, Health Nitrofurantoin, Monohydrate (MACROBID) capsule 100 mg EST ONCE, Mon 75 MG Oral Capsule nitrofurantoin at 1500, (macrocrystal-monohydrate) For 1 (MACROBID) capsule 100 mg dose Medication administered onsite diphenhydrAMINE [id number] 03/27/2019 25 IV completed 25 mg, IV [place] (BENADRYL) 02:15:00 PM mg Push Push, ONCE, Health injection 25 mg EST Mon 03/27 at 1415, For 1 dose
If given IV Push, May be given undiluted and Push each 25mg or fraction thereof over 1 minute.
Medication administered onsite 2 ML metoclopramide 03/27/2019 10 IV completed 10 mg, IV [place] Metoclopramide 5 (REGLAN) 02:15:00 PM mg Push Push, ONCE, Health MG/ML Prefilled injection 10 mg EST Wed03/27/19 Syringe at 1415, For metoclopramide 1 dose
If (REGLAN) given IV injection 10 mg Push, No dilution required for doses up to 10mg and Push each 10 mg or fraction thereof over 2 minutes.
Medication administered onsite sodium [id number] 03/27/2019 1000 Intravenous completed 1,000 mL, [place] chloride 02:15:00 PM mL Intraveno us, Health 0.9 % EST Administer bolus over 1 Hours, 1,000 mL ONCE, 03/27/19 at 1415, For 1 dose
IV fluid for: hydration
Medication administered onsite ondansetron [id number] 03/27/2019 4 mg IV completed 4 mg, IV [place] (ZOFRAN) 10:15:00 AM Push Push, ON CE, Health injection 4 EST Wed03/27/19 mg at 1015, For 1 dose
If given IV Push, May be given undiluted and Push over 2 minutes.
Medication administered onsite sodium 8833-6795-98 03/27/2019 1000 Intravenous completed 1,000 mL, [place] chloride 10:15:00 AM mL Intraveno , Health 0.9 % EST Administer bolus over 1 Hours, 1,000 mL ONCE, Wed03/27/19 at 1015, For 1 dose
IV fluid for: hydration
Medication administered onsite NITROFURANTOIN, nitrofurantoin, 03/27/2019 100 Oral complet ed Take 1 [place] MACROCRYSTALS 25 MG / macrocrystal-monohydrate, 12:00:00 AM mg capsule Health Nitrofurantoin, (MACROBID) 100 MG capsule EST by mouth Monohydrate 75 MG Oral 2 (two) Capsule nitrofurantoin, t imes macrocrystal-monohydrate, daily (MACROBID) 100 MG capsule for 7 days. Take 1 capsule by mouth 2 (two) times da agnes for 7 days. ondansetron 95617-866-33 02/17/2019 4 mg IV completed 4 mg, IV [place] (ZOFRAN) 05:45:00 PM Push Push, ON CE, Health injection 4 EST Wed02/17/19 mg at 1745, For 1 dose
If given IV Push, May be given undiluted and Push over 2 minutes.
Medication administered onsite sodium 0391-0999-65 02/17/2019 1000 Intravenous completed 1,000 mL, [place] chloride 05:30:00 PM mL Intraveno , [facility] 0.9 % EST Administer bolus over 1 Hours, 1,000 mL ONCE, Wed02/17/19 at 1730, For 1 dose
IV fluid for: hydration
Medication administered onsite Ondansetron 4 ondansetron 02/17/2019 4 mg Oral completed Take 1 [place] MG Oral Tablet (ZOFRAN) 4 MG 12:00:00 AM tablet by Health ondansetron tablet EST mouth (ZOFRAN) 4 MG every 8 tablet (eight) hours as needed for Nausea for up to 3 days. Take 1 tablet by mouth every 8 (eight) h ours as needed for Nausea for up to 3 days. Ondansetron Ondansetron 02/06/2019 1.0 active Ondansetron eCW3 8 MG Oral HCl 8 MG 12:00:00 AM {tablet_as_needed} HCl 8 MG ([facility] Tablet EDT [place] Ondansetron Health HCl 8 MG Care) ondansetron 89857-415-05 02/03/2019 4 mg I complet 4 mg, IV [place] (ZOFRAN) 05:30:00 PM V ed Push, ON CE, Health injection 4 EDT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 fL 81.9-99. [facility] MCH 28.3 pg 26.2-32. [facility] MCHC 32.7 30.9-33. [facility] g/dL 8 Health RDW 13.6 % 11.5-15. [facility] PLATELET COUNT 264 126-373 [facility] 10^3/ Health L NEUTROPHILS 16.7 1.5-7.5 Above high normal [facility] ABSOLUTE COUNT 10^3/ Health L LYMPHOCYTES 1.8 0.7-3.6 [facility] ABSOLUTE COUNT 10^3/ Health L MONOCYTES 1.4 0.2-1.1 Above high normal [facility] ABSOLUTE COUNT 10^3/ Health L EOSINOPHILS 0.15 0.00-0.5 [facility] ABSOLUTE COUNT 10^3/ 0 Health L BASOPHILS 0.0 0.0-0.1 [facility] ABSOLUTE COUNT 10^3/ Health L NEUTROPHILS 82.1 % 41.7-78. Above high normal [facility] RELATIVE 9 Health PERCENT LYMPHOCYTES 8.9 % 10.8-45. Below low normal [facility] RELATIVE 9 [facility] PERCENT MONOCYTES 6.7 % 3.7-15.0 [facility] PERCENT EOSINOPHILS 0.7 % 0.0-5.7 [facility] PERCENT BASOPHILS 0.2 % 0.0-1.5 [facility] PERCENT IG RELATIVE 1.4 % 0.0-3.0 [facility] PERCENT [facility] ANC AUTO DIFF 66412 1,500-8, Above high normal [facility] Cells/mm 000 [facility] 3 ID Date Data Source [id number] 08/02/2019 07:53:10 PM EDT [facility] Name Value Range Interpretation Description Data Sup porting Code Source(s) Document(s ) Insurance Counselor [employer] Interface Message Text Spoke with Dr Pena per gentamycin ran dom level per MD no need for testing forthis dosing ID Date Data Source [id number] 08/02/2019 05:54:37 PM EDT [facility] Name Value Range Interpretation Description Data Sup porting Code Source(s) Document(s ) Insurance Counselor [employer] Interface Message Text Addendum created 08/02/191753 by Kurtis Ochoa MD Visit Navigator SmartForm Flowsheet section accepted ID Date Data Source [id number] 08/02/2019 05:12:57 PM EDT [facility] Name Value Range Interpretation Description Data Sup porting Code Source(s) Document(s ) Insurance Counselor [employer] Interface Message Text Problem: OB KNOWLEDGE DEFICITGoal: Kong hall knowledge of post careOutcome: ProgressingProblem: Communication Impair mentGoal: Ability to express needs and understand communicationOutcome: Progres singProblem: OB PAINGoal: Verbalizes reduction or alleviation of painOutcome: ProgressingGoal: Verbalizes ways to decrease painOutcome: ProgressingGoal: No adverse side effects observed in mother or babyOutcome: ProgressingProblem: OB Pote ntial for Actual Infection GHVGoal: Remain free from symptoms of infectionDescripti onPatient will remain free from symptoms of infection:- redness- warmth- increased t emperature- dischargeOutcome: ProgressingProblem: OB FLUID VOLUME EXCE SSGoal: Fluid and electrolyte balance are achieved/maintainedOutcome: ProgressingG oal: Labs within normal limitsOutcome: ProgressingProblem: Knowledge DeficitGoa l: Patient/S.O. demonstrates understanding of disease process, treatmentplan, medicati ons, and discharge instructions.Outcome: ProgressingProblem: Labor & DeliveryGoal : Manages discomfortOutcome: ProgressingGoal: Vital signs are medically acceptableOutc ome: ProgressingProblem: Recovery CareGoal: Manages discomfortOutcome: Pro gressingGoal: Vital signs are medically acceptableOutcome: ProgressingGoal: Verb yovani understanding of post-op instructionsOutcome: ProgressingGoal: Dr tamayo intact until removed with any drainage markedDescriptionDuring RecoveryOutcome: ProgressingGoal: Urine output is 30 ml/hour or moreDescriptionUrinary Catheter is dr therese borja urine 30 ML/hour or more.Outcome: ProgressingGoal: Fundus fi rm at midlineOutcome: ProgressingProblem: Hemodynamic StatusGoal: Patient has stab le vital signs and fluid balanceOutcome: ProgressingProblem: CareGoal: Vital signs are medically acceptableOutcome: ProgressingGoal: Dres sing intact until removed with any drainage markedDescriptionDuring RecoveryOutcome: ProgressingGoal: Urine output is 30 ml/hour or moreDescriptionUrinary Catheter is dr therese borja urine 30 ML/hour or more.Outcome: ProgressingGoal: Fundus fi rm at midlineOutcome: ProgressingGoal: Patient is able to void/empty bladder af ter catheter is removedOutcome: ProgressingProblem: PainGoal: Patient's pain/discomfort is manageableOutcome: ProgressingProblem: InfectionGoal: Signs and symptoms of infections are decreased or avoidedOutcome: Progressing ID Date Data Source [id number] 08/02/2019 12:02:00 PM EDT [employer] Name Value Range Interpretation Description Data Sup porting Code Source(s) Document(s ) Insurance Counselor [employer] Interface Message Text If you have an approval, question and/or concern regarding this Clinical Review,please contact the [facility] Main Case Management Office at telephone number: or fax . Th ank you.REF#[id number] Jean-Baptiste MDPhysicianObstetrics/Gynecolog yH&PSignedDate of Service: 08/01/2019 6:23 AMSigned Labor and Delivery Admission H&PSubjective:Brenda Austin is a 24 y.o. female w ith an EDC of08/04/2019 who is being admitted for labor management. Her current obste tricalhistory is significant for Rh negative, rhogam at 27 weeks and 6/7, Gestationalf diabetes diet controlled, and chronic pancreatitis. Patient reportscontractio ns since 0 on . She denies leakage of fluidOb labs:AB negativeAb sc reen amuyvilj-MxciogOkb-67.10 and 13.30 g/dlPap IRAIDA 1Varicella and Rubella Immun eRPR: NRUrine cultures: negativeHep B s ag: negativeHIV: NRGonorrhea and chlamydia: negativeCystic Fibrosis: negativeSMA: negativeUltrasound nlFirst trimester scr een negative and elevated MSAFP1 hr GTT: 186-3 hr GTT: 84, 222, 185, and 84Ultras ound- 33 weeks and 3/7 2394 gms 57 %, vtrx, nl afvObjective:Past Medical History:Matty gnosis Date Diabetes mellitus gestational-diet con trolled Lumbar herniated disc PancreatitisPast Surgical History:Proce dure Laterality Date GA GI ENDOSCOPIC ULTRASOUND N/A 018 Procedure: ENDOSCOPIC ULTRASOUND; Surgeon: Amarjit Bahena MBBS; Location: [facility]; Service: GastroenterologySocial HistorySocial His toryTobacco Use Smoking status: Never Smoker Smokeless tobacco: Never UsedSubstance Use Topics Alcohol use: No Drug use: Yes Types: MarijuanaFamily HistoryProblem Relation Age of Onset Diabetes Paternal Grandmother Diabetes Maternal AuntAllergiesAllergen Reactions Dilaudid [Hydromorphone] Shortness Of B reath Itchy, hives, shortness of breath. Patient tolerates morphine. Amoxicillin Swelling Reglan [Metoclopramide] Increased pa inObjectiveBP (!) 156/91 | Pulse 117 | Temp 98.6 F (37 C) | Resp 19 | LMP 10/10| SpO2 99%General: alert, appears stated age and cooperativeSkin: Skin c olor, texture, turgor normal. No rashes or lesionsHEENT: Head: Normal, normocephal ic, atraumatic.Lungs: clear to auscultation bilaterallyHeart: regular rate and rhy thmAbdomen: FHT presentExtremities: extremities normal, atraumatic, no cyano sis or edema, Homans signis negative, no sign of DVT and no edema, redness or tenderne ss in the calves orthighsPelvis: External genitalia: normal general appearanceFHT: Category: I Baseline: 140 Variability: mo derate Decels: noneUterine Activity: regular, every 2-3 minutesPresentations: cephalicCervix: Dilation: 1 Effacement: 50 Station: - 3 Consistency: medium Position: posteriorEFW: 8 lbsLab Review GBS: Neg ativeAssessment: 39 and 4/7 weeks gestation.GDM A1Rh negativeGBS negativeE zelalem laborPlan:PlanAdmit, IV fluid bolusFollow progressRisks associated wit h DM ie Shoulder dystocia, potential for CD and neonataladmission to NICU were revie wedRouting Olamide Melgar, MDPhysicianObstetrics and GynecologyOp N oteSignedDate of Service: 08/01/2019 9:06 PMSignedCesarean Section Procedure NoteD ate of Procedure: 08/01/2019Pre-operative Diagnosis: 1. at 39w4d 2. GDM A1 3. Chorioamnionitis 4.Failed inductionPost-operative Diagnosis: sameP rocedure: Low Transverse SectionAttending: Olamide BlackAssistant: Dr. Saundersnesthesiologist: Dr. GoodsonAnesthesia: spinalFindings: The uterine outline, tubes and ovaries appeared normal. Goodhemostasis. Occipito - post erior position Infant Wt: 8 lbs, 2.2 oz.; 3690 gm Apgars: 1min 9 / 5 min 9 Gender: maleEstimated Blood Loss: 650 mlIV flu id: 1500 mlFoley's output: 100 ml, clearPre-op antibiotic: Clindamycin 900 mg IV + Gentamicin 5 mg/kg IVDrains: Urinary Catheter (Arzola)Specimens: placenta to p athologyComplications: None; patient tolerated the procedure well.Disposition : PACU - hemodynamically stable.Procedure DetailsThe risks, benefits, complication s, treatment options, and expected outcomeswere discussed with the patient. The patient concurred with the proposed plan,giving informed consent. The site of surgery properly noted. The patient wastaken to Operating Room, identified a nd the procedure verified as C-SectionDelivery. A Time Out was held a nd the above information confirmed.She was placed in a supine position with a left lateral tilt. After inductionof anesthesia, the patient was Prepped and draped in t he usual sterile manner.A Pfannenstiel incision was made and extended through t he subcutaneous tissue tothe underlying fascia. The fascia was incised and exten ded transversely. Thevesico-utero peritoneum was incised and a bladder flap was creat ed. A lowtransverse uterine incision was made with the scalpel. The 's hea d wasdelivered, the mouth and nose were suctioned, the body was delivered, theum bilical cord was clamped and cut, and the infant was handed off the thewaiting ped iatricians. Cord blood samples were obtained. The placenta wasremoved and t he uterine cavity was cleared of all clots and debris. The uterineincision was alison sed with running locked sutures of 0 Chromic, and hemostasis wasassured. The second la juan pablo was closed in similar manner to imbricate first layer.The uterus was replaced, and the gutters were cleared of all clots and debris.The Interceed was placed over [place] rine incision. The fascia was thenreapproximated with running sutures of 0 Vicryl by and . Thesubcutaneous tissues were copiously i rrigated and hemostasis assured and closedwith plain catgut 3-0. The skin w as reapproximated with subcuticular luz by and .Instrument, sponge, an d needle counts were correct prior the abdominal closureand at the conclusion o f the case.Olamide [facility], Olamide Lopez, MDPhysicianObstetrics and Gynec ologyProgress NotesSignedDate of Service: 08/02/2019 10:37 AMSignedPostpartum Note: CesareanPostpartum Day 1: DeliverySubjective:The patient feels wel l. Pain is well controlled with current medications. Thepatient is not ambulatin g well. The patient is tolerating normal diet astolerated. Flatus has not been passed. Objective::Patient Vitals for the past 8 hrs: BP Temp Temp src Pulse Resp [id number] 0 0350 106/57 98.4 F (36.9 C) Oral 100 18 97 %08/02/19 0254 102/58 98.3 F (36.8 C) Oral 103 18 97 %General: alert, appears stated age and cooperativeBowel Sounds: activeLochia: appropriateUterine Fundus: firmIncision: healing well, no significa nt drainage, no dehiscence, no significanterythemaDVT Evaluation: No ev idence of DVT seen on physical exam.Lab ResultsComponent Value Date WBC 24.9 (H ) 08/02/2019 RBC 3.52 (L) 08/02/2019 HGB 9.8 (L) 08/02/2019 HCT 30.3 (L) 020 MCV 86.1 08/02/2019 RDW 13.0 08/02/2019Assessment:Status post Cesarea n section. Doing well postoperatively.Fever: likely related to ChorioamnionitisPlan:C ontinue current careCOIVD-19 testing due to feverWill continue IV Antibiotic 24 hour s postopManan Reena Black ID Date Data Source [id number] 08/02/2019 10:48:51 AM EDT [employer] Value Range Interpretation Description Data Sup porting Code Source(s) Document(s ) Insurance Counselor [employer] Message Text Mike Garcia, is the SUPPORT PERSON lurdes cted by Arcelia Austin who will bescreened for symptoms of COVID-19 (e.g . fever, sore throat, runny nose, coughshortness of breath, muscle aches, or diarrhea). At this time his/hertemperature is 97.6. No other CO VID-19 symptoms present.His/her temperature will be monitored and documented every t welve hourshereafter for their remainder of their visitation with the patient. ID Date Data Source [id number] 08/02/2019 10:41:59 AM EDT [employer] Value Range Interpretation Description Data Sup porting Code Source(s) Document(s ) Insurance Counselor [employer] Interface Message Text Note: CesareanPostpartum Day 1: DeliverySubjective:The patient feels well. Pain is well controlled with current medications. Thepatient is not ambulating well. The patient is tolerati ng normal diet astolerated. Flatus has not been passed.Objective::Patient Vitals fo r the past 8 hrs: BP Temp Temp src Pulse Resp FtE65708/02/19 0350 106/57 98.4 F (36.9 C) Oral 100 18 97 %08/02/19 0254 102/58 98.3 F (36.8 C) Oral 103 18 97 %Gene ral: alert, appears stated age and cooperativeBowel Sounds: activeLochia: a ppropriateUterine Fundus: firmIncision: healing well, no significant drainage, n o dehiscence, no significanterythemaDVT Evaluation: No evidence of DVT seen on p hysical exam.Lab ResultsComponent Value Date WBC 24.9 (H) 08/02/2019 RBC 3.52 (L) HGB 9.8 (L) 08/02/2019 HCT 30.3 (L) 08/02/2019 MCV 86.1 08/02/2019 RDW 13.0 08/02/2019Assessment:Status post section. Doing well postoperatively.Feve r: likely related to ChorioamnionitisPlan:Continue current ca reCOIVD-19 testing due to feverWill continue IV Antibiotic 24 hours postopManan Alexis Black ID Date Data Source [id number] 08/03/2019 05:38:00 PM EDT [facility] Name Value Range Interpretation Description Data Sup porting Code Source(s) Document(s ) COVID-19 Not Not [facility] Detected [facility]ed [facility] 08/03/2019 1655 results retrieved from [facility] by Tahir Osorio ID Date Data Source [id number] 08/02/2019 07:27:00 AM EDT [facility] Name Value Range Interpretation Description Data Sup porting Code Source(s) Document(s ) WBC 24.9 3.9-10.7 Above high normal [facility] 10^3/ Health L RBC 3.52 4.00-5.1 Below low normal [facility] 10^6/ 0 Health L HEMOGLOBIN 9.8 g/dL 12.0-14. Below low normal [facility] 7 [facility] HEMATOCRIT 30.3 % 37.1-45. Below low normal [facility] MCV 86.1 fL 81.9-99. [facility] MCH 27.8 pg 26.2-32. [facility] MCHC 32.3 30.9-33. [facility] g/dL 8 Health RDW 13.0 % 11.5-15. [facility] 0 [facility] PLATELET COUNT 241 126-373 [facility] 10^3/ Health L NEUTROPHILS 21.0 1.5-7.5 Above high normal [facility] ABSOLUTE COUNT 10^3/ Health L LYMPHOCYTES 1.6 0.7-3.6 [facility] ABSOLUTE COUNT 10^3/ Health L MONOCYTES 2.0 0.2-1.1 Above high normal [facility] ABSOLUTE COUNT 10^3/ Health L EOSINOPHILS 0.02 0.00-0.5 [facility] ABSOLUTE COUNT 10^3/ 0 Health L BASOPHILS 0.1 0.0-0.1 [facility] ABSOLUTE COUNT 10^3/ Health L NEUTROPHILS 84.5 % 41.7-78. Above high normal [facility] RELATIVE 9 Health PERCENT LYMPHOCYTES 6.5 % 10.8-45. Below low normal [facility] RELATIVE 9 [facility] PERCENT MONOCYTES 7.9 % 3.7-15.0 [facility] PERCENT EOSINOPHILS 0.1 % 0.0-5.7 [facility] PERCENT BASOPHILS 0.2 % 0.0-1.5 [facility] PERCENT IG RELATIVE 0.8 % 0.0-3.0 [facility] PERCENT Health ANC AUTO DIFF 06279 1,500-8, Above high normal [facility] Cells/mm 000 [facility] 3 ID Date Data Source [id number] 08/02/2019 06:06:07 AM EDT [employer] Name Value Range Interpretation Description Data Sup porting Code Source(s) Document(s ) Insurance Counselor [employer] Message Text Problem: Recovery CareGoal: Ma nages discomfortOutcome: ProgressingProblem: Recovery CareGoal: Vital signs are medically acceptableOutcome: Met this ShiftProblem: Recovery CareGoa l: Dressing intact until removed with any drainage markedDescriptionDuring Recover yOutcome: Met this ShiftProblem: Recovery CareGoal: Urine output is 30 ml /hour or moreOutcome: Met this ShiftProblem: Recovery CareGoal: Fundus firm at midlineOutcome: Met this Shift ID Date Data Source [id number] 08/02/2019 03:29:41 AM EDT [facility] Name Value Range Interpretation Description Data Sup porting Code Source(s) Document(s ) Insurance Counselor [employer] Message Text Pt c/o itching call to Lamin back, awaiting orders ID Date Data Source [id number] 08/02/2019 12:00:00 AM EDT [facility] Name Value Range Interpretation Code Description Data Nayely rce(s) Supporting Document(s ) 2019-nCoV [facility] N XXX Ql ALEIDA N2 This lab was ordered by [facility] and reported by [facility]. ID Date Data Source [id number] 08/01/2019 11:56:41 PM EDT [employer] Value Range Interpretation Description Data Sup porting Code Source(s) Document(s ) Insurance Counselor [employer] Message Text Mike Hopson, is the SUPPORT PERS ON selected by Arcelia Austin whowill be screened for symptoms of COVID-19 (e. g. fever, sore throat, runny nose,cough shortness of breath, muscle aches, or di arrhea). At this time his/hertemperature is 98.4. No other COVID-19 symptoms presen t.His/her temperature will be monitored and documented every twelve hourshereafter f or their remainder of their visitation with the patient. ID Date Data Source [id number] 08/01/2019 09:11:16 PM EDT [employer] Value Range Interpretation Description Data Sup porting Code Source(s) Document(s ) Insurance Counselor [employer] Message Text Section Procedure NoteDate of Ruddy elliotture: 08/01/2019Pre-operative Diagnosis: 1. at 39w4d 2. GDM A1 3. Chor ioamnionitis 4.Failed inductionPost-operative Diagnosis: sameProcedure: Low Transverse SectionAttending: Olamide Vargasistant: Dr. Saundersnesthesiologist : Dr. GoodsonAnesthesia: spinalFindings: The uterine outline, tubes and ovaries a ppeared normal. Goodhemostasis. Occipito - posterior position Infant Wt: 8 lbs, 2.2 oz.; 3690 gm Apgars: 1min 9 / 5 min 9 Gender: male Estimated Blood Loss: 650 mlIV fluid: 1500 mlFoley's output: 100 ml, clearPre -op antibiotic: Clindamycin 900 mg IV + Gentamicin 5 mg/kg IV Alexis ns: Urinary Catheter (Arzola) Specimens: placenta to pathology Complications: None; patient tolerated the procedure well. Disposition: PACU - hemodynamically stable.Procedure Details The risks, benefits, complications, treatment options, and expected outcomeswere discu ssed with the patient. The patient concurred with the proposed plan,giving informed consent. The site of surgery properly noted. The patient wastaken to Operating Room, identified and the procedure verified as C-SectionDelivery. A Time Ou t was held and the above information confirmed.She was placed in a supine pos ition with a left lateral tilt. After inductionof anesthesia, the patient was Prepped and draped in the usual sterile manner.A Pfannenstiel incision was made and extended through the subcutaneous tissue tothe underlying fascia. The fascia was incised and extended transversely. Thevesico-utero peritoneum was incised a nd a bladder flap was created. A lowtransverse uterine incision was made with the scalpel. The 's head wasdelivered, the mouth and nose were newberry ctioned, the body was delivered, theumbilical cord was clamped and cut, and the infant [facility]. Cord blood samples were obtained. The placenta wasremoved and the uterine cavity was cleared of all clots and debris. The uterineincision was closed with running locked sutures of 0 Chromic , and hemostasis wasassured. The second layer was closed in similar manner to imbricat e first layer.The uterus was replaced, and the gutters were cleared of all clots an d debris.The Interceed was placed over uterine incision. The fascia was thenrea pproximated with running sutures of 0 Vicryl by and . Thesubcutaneous tiss ues were copiously irrigated and hemostasis assured and closedwith plain catgut 3-0. The skin was reapproximated with subcuticular luz by and .I nstrument, sponge, and needle counts were correct prior the abdominal closureand a t the conclusion of the case.Olamide Black ID Date Data Source [id number] 08/01/2019 09:06:39 PM EDT [employer] Name Value Range Interpretation Description Data Sup porting Code Source(s) Document(s ) Insurance Counselor [employer] Interface Message Text Addendum created 08/01/192105 by Lamin Roque DO Alternative orders not taken and original order placed, Order list ch anged,Order sets accessed ID Date Data Source [id number] 08/01/2019 08:53:50 PM EDT [employer] Name Value Range Interpretation Description Data Sup porting Code Source(s) Document(s ) Insurance Counselor [employer] Message Text Anesthesia Phase II NotePatient: Arcelia RamirezqulindseyProcedure(s) Performed: Procedure(s): SECTIONAnesthesia type: spinal, epiduralDischarge disposition:Meets criteria for Phase II level of care.Patient location: Phase IIPost-op assessment: no apparent anesth etic complications.Airway assessment:naturalLast Vitals: Vital sig ns, per the nurses Vitals flowsheet, have been reviewedand verified.Post-op vital signs: stablePost-op Pain:Adequate analgesiaNausea and vomiting:NoLevel of consciousness: awake.Assessment hydration status:Adequate.Complications: noneElect ronically signed by Lamin MARQUEZ Date Data Source [id number] 08/01/2019 08:53:14 PM EDT [employer] Value Range Interpretation Description Data Sup porting Code Source(s) Document(s ) Insurance Counselor [employer] Message Text Anesthesia PACU NotePatient: Arcelia fisherfoxProcedure(s) Performed: Procedure(s): SECTIONAnesthesia type: spinal, epiduralPatient location: PACUPost-op assessment: no apparent anes thetic complications.Airway assessment:naturalLast Vitals: Vital si gns per the PACU flowsheet have been reviewed andverified.Post-op vital signs: stableP ost-op Pain:Adequate analgesiaNausea and vomiting:NoLevel of consciousness: awake .Assessment hydration status:Adequate.Complications: none.Azar sferring care to PACU TeamElectronically signed by Lamin MARQUEZ Date Data Source [id number] 08/01/2019 08:37:41 PM EDT [employer] Value Range Interpretation Description Data Sup porting Code Source(s) Document(s ) Insurance Counselor [employer] Message Text Procedure Name: Spinal.Date/Time: 020 8:15 PM.Performed by: attending.Referring Provider: [place] ProtocolPatient Location: OR.Consent: Written consent obtained.Consent given by: patient.Pre-P rocedureIndications: post procedure pain, surgical anesthesia and at surgeon's re quest.Pre - anesthetic checklist: patient identified, IV checked, surgical consent ,monitors and equipment checked, timeout performed, anesthesia consent, oxygenava ilable, patient being monitored and surgical mask.SedationSedation Depth: patient win ke throughout.Procedure DetailsSkin Preparation: betadine.Patient Position: sitting.Technique: midline.Subcutaneous Local Anesthetic InjectionNeedle Gauge: 25 G.L ocal Anesthetic: lidocaine 1% without epinephrine.Anesthetic Total: 5 mL.Spina l NeedleNeedle Gauge: 27G.Needle Type: pencil-tip.Needle Length: 3.5 inches.Pos t-ProcedureEnd Time: 08/01/2019 8:22 PM.Dressing Type: site C/D/I.Sensory Lev el: T4.Patient Tolerance: patient tolerated the procedure well with no immediatecomp lications.post-procedure vital signs reviewed and stable.Comments: L3-L4AT. ID Date Data Source [id number] 08/04/2019 04:28:00 PM EDT [facility] Surgical Pathology Report Case: [id number] Authorizing Provider: Olamide Black MD Collected: 08/01/20192032 Ordering Loca tion: [facility] Received: 08/02/2019 0933 Pathologist: Kristian Mcarthur MD Specimen: Placenta, , section/chor io Placenta, delivery:Third trime ster placenta with trivascular umbilical cord.Mild to moderate acute chorioamnion itis.Stem vessel vasculitis and early acute funisitis. Received fresh labeled placenta. It co nsists of an ovoid placenta that measures 17.0 x 12.0 x 2.0 cm and weighs 540 gram s. The umbilical cord inserts marginally and measures 29.0 cm in length by 1.5 cm in diameter. The umbilical cord appears sauceda-white smooth and glistening and dis plays three vessels on cross section. The membranes are pink and smooth. The surface is red-purple and well vascularized. The maternal surface is dark red and lob ulated. The cotyledons are intact and complete. Honing Machine Operator sections are newberry bmitted in four blocks. Name Value Range Interpretation Code Description Data Nayely rce(s) Supporting Document(s ) ID Date Data Source [id number] 08/01/2019 08:03:00 PM EDT [facility] Name Value Range Interpretation Description Data Sup porting Code Source(s) Document(s ) GLUCOSE POC 60 mg/dL 70-110 [facility] Date Data Source [id number] 08/01/2019 07:52:53 PM EDT [employer] Value Range Interpretation Description Data Sup porting Code Source(s) Document(s ) [employer]or [employer] Message Text Subjective: reports mild pelvic pressure Objective:Vitals: T 102.3 P 117SVE: 4-5 / 60 / -2 / caput ++EFM: 160, moderate variab ility, + accelerationsToco: every 2-3 minsMeds:Pit @ 5 mu / minEpiduralAssessm ent:Intrauterine at 96f4hAxifc laborChorioamnionitisFailed inductionGDM A1 / possible LGA fetusGBS negativePlan:Will start IV Clindamycin / IV GentamicinWill proceed with Primary sectionNeonatologist were notified about feverTeam was calledConsent was En Black ID Date Data Source [id number] 08/01/2019 07:46:29 PM EDT [employer] Value Range Interpretation Description Data Sup porting Code Source(s) Document(s ) [employer] Counselor [employer] Message Text Temp 100.5 reported MDFluid bolus 500cc as per Dr Interiano startted as ordered ID Date Data Source [id number] 08/01/2019 07:17:07 PM EDT [employer] Value Range Interpretation Description Data Sup porting Code Source(s) Document(s ) Insurance Counselor [employer] Message Text Subjective: no complaintsObjective:Vital s: stableSVE: 4 / 60 / -2 / cephalic / clear fluid / mild caputEFM: 140, moderate nadeem iability, +acceleration: category IToco: every 2-3 minsMeds:Pit @ 10 mu / minEpid uralAssessment:Intrauterine at 65e4zCwvcp laborGDM A1GBS negativePlan:W ill continue Pitocin for augmentationOlamide BlackCorrection:Pit @ 4 mu / minOlamide steele ID Date Data Source [id number] 08/01/2019 04:31:32 PM EDT [employer] Value Range Interpretation Description Data Sup porting Code Source(s) Document(s ) Insurance Counselor [employer] Message Text Call to IT informed [facility] documentati on for uterine activity [facility] to put visit number into [facility]Visit number confirmed with IT and placed into [facility].Marin stated system will update and information will transfer over. blanca sims anticipated time to complete and call back ID Date Data Source [id number] 08/01/2019 03:57:42 PM EDT [employer] Name Value Range Interpretation Description Data Sup porting Code Source(s) Document(s ) Insurance Counselor [employer] Message Text Ticket # [id number], awaiting time frame for information to cross over from [facility] ID Date Data Source [id number] 08/01/2019 01:11:48 PM EDT [employer] Value Range Interpretation Description Data Sup porting Code Source(s) Document(s ) Insurance Counselor [employer] Message Text Subjecitvecomfortbale with epiduralObeje ctiveBP 106/59 | Pulse 104 | Temp 98.7 F (37.1 C) (Oral) | Resp 19 | Ht 5' 4" (1.626 m) | Wt 155 lb (70.3 kg) | LMP 10/28/2018 | SpO2 97% | BMI 26.61kg/m Gen NADAbdomen soft gravodfExt no cords,Cat I tracingcvx 3-4 / 60-70 -1AROM clear fl uidImpresisonContractions have slowed down since epiduralWill augment with pitocin, pros cons risks reviewed, ID Date Data Source [id number] 08/01/2019 10:39:53 AM EDT [employer] Value Range Interpretation Description Data Sup porting Code Source(s) Document(s ) Insurance Counselor [employer] Message Text Procedure Name: Epidural Procedure Repor t.Date/Time: 08/01/2019 10:39 AM.Performing Provider: attending.Referring Provider: [facility] ProtocolPatient Location: L&D room.Consent: written consent obtained.C onsent given by: patient.Pre-ProcedureIndications: at hugo geon's request and labor and delivery analgesia.Pre - anesthetic checklist: pa tient identified, IV checked, monitors andequipment checked, timeout performed, anesthesia consent, oxygen available,patient being monitored and surgical mask.Sedati onSedation Depth: patient awake throughout.Procedure DetailsSkin Prepara tion: betadine.Patient Position: sitting.Technique: catheter insertion, m idline, VOLODYMYR saline and lumbar.Subcutaneous Local Anesthetic InjectionNeedle Gauge: 25 G.Local Anesthetic: lidocaine 1% without epinephrine.Anesthetic Total: 5 mL.Epidu ral NeedleNeedle Gauge: 18G.Needle Type: Tuohy.Needle Length: 3.5 inches.Anesthet ic Total: 5mL.Injection made incrementally with aspirations every 5 mL.Post-Procedu reEnd Time: 08/01/2019 10:39 AM.Dressing Type: clear dressing and site C/D/I.Patient To lerance: patient tolerated the procedure well with no immediatecomplications.post-proc edure vital signs reviewed and stable. ID Date Data Source [id number] 08/01/2019 10:38:51 AM EDT [employer] Value Range Interpretation Description Data Sup porting Code Source(s) Document(s ) Insurance Counselor [employer] Message Text Anesthesia ROS/MED HXPatient summary rev iewed and Nursing notes reviewed.Hx of Anesthetic ComplicationsNegative Anesthe katiana History ROS. CardiovascularNegative CV ROS.Patient is not on beta-bren perio perative.EKG reviewed.PulmonaryNegative Pulmonary ROS. GI/Hepatic/RenalHistory o f GERD.Neuro/ PsychNegative Neuro/Psych ROS. Endo/OtherNegative Endo/Other ROS.Substa nce AbuseNegative history of substance abuse Anesthesia Physical Exam AirwayMallampat i: II.TM distance: >3 FB.Neck ROM: full. CardiovascularRhythm: regular.Rate: norm al.PE Comment: Cardiovascular exam is normal. NeuroNeurological exam is grossly normal . PulmonaryPulmonary exam is normal.DentalNo notable dental abnormality. AbdominalAbd ominal exam normal.Anesthesia PlanASA Score is: 2.epidural.Anesthetic plan and risks discussed with patient.Induction: intravenousElectronically signed by Sabrina Baxter ID Date Data Source [id number] 08/01/2019 10:38:26 AM EDT [employer] Value Range Interpretation Description Data Sup porting Code Source(s) Document(s ) Insurance Counselor [employer] Message Text Subjectibvecontractio discomfortPain lev el 8 out olf 10ObjectiveBP 122/58 | Pulse 100 | Temp 99.1 F (37.3 C) (Oral) | Resp 19 | Ht 5' 4"(1.626 m) | Wt 155 lb (70.3 kg) | LMP 10/28/2018 | SpO2 99% | BMI 26.61kg/mGen contraction painAbdomen soft gravid size = datesExt no cords,CVX 3 / 50% / -2 (this is a change from her previous exam of 1 cm / 50%)[place]acliff contrac tions 3-4 mimnutesCat I ppythpiBkzdolgjhtL8EJY sugar in good con trolLast sugar 81Rh negative - will need rhogam eval postpartumProgressing in lab orDesires epidural for labor painGBS negativeEFW 7 1/2 lbs, clincially adequa te gynecoid pelvis no suspicion for CPDAlso discussed SD risks with patient ID Date Data Source [id number] 08/01/2019 10:35:32 AM EDT [employer] Value Range Interpretation Description Data Sup porting Code Source(s) Document(s ) Insurance Counselor [employer] Interface Message Text Patient requesting pain medication. VE D r Zedek.3cm 50% posterior Discussed pain modality optionsPatient states she would like an epidural ID Date Data Source [id number] 08/01/2019 08:15:45 AM EDT [employer] Value Range Interpretation Description Data Sup porting Code Source(s) Document(s ) Insurance [employer] Message Text Patient OOB to BRsitting on Ball at beds ideAdjusting TOCO and EFMCoping well with contractions ID Date Data Source [id number] 08/01/2019 08:11:52 AM EDT [employer] Value Range Interpretation Description Data Sup porting Code Source(s) Document(s ) Insurance Counselor [employer] Interface Message Text Mike, is the SUPPORT PERSON selected by Arcelia Austin who will bescreened for symptoms of COVID-19 (e.g. fever, sore t hroat, runny nose, coughshortness of breath, muscle aches, or diarrhea). At this odell e his/hertemperature is 98.6Juans temperature will be monitored and documented every t welve hours hereafterfor their remainder of their visitation with the patient. ID Date Data Source [id number] 08/01/2019 07:58:15 AM EDT [employer] Value Range Interpretation Description Data Sup porting Code Source(s) Document(s ) Insurance Counselor [employer] Interface Message Text Patient positioned right lateral, contro lled breathing with contractionsPain reported is both lower abdominal and back pain wi th contractions pain at 7of 10. Support person doing sacral massage with contrac tions patient reportsfeeling better with interventions.Discussed pain management modalities available patient reports she would like anepidural later. ID Date Data Source [id number] 08/01/2019 07:12:00 AM EDT [employer] Value Range Interpretation Description Data Sup porting Code Source(s) Document(s ) GLUCOSE POC 96 mg/dL 70-110 [employer] ID Date Data Source [id number] 08/01/2019 06:46:14 AM EDT [employer] Value Range Interpretation Description Data Sup porting Code Source(s) Document(s ) Insurance Counselor [employer] Interface Message Text Labor and Delivery Admission H&PSubj ective:rBenda Austin is a 24 y.o. female with an EDC of08/03 who is being admitted for labor management. Her current obstetricalhist ory is significant for Rh negative, rhogam at 27 weeks and 6/7, Gestationalfdiabetes d iet controlled, and chronic pancreatitis. Patient reportscontractions since 0 o n . She denies leakage of fluidOb labs:AB negativeAb screen negative-Rhoga mHct-34.10 and 13.30 g/dlPap IRAIDA 1Varicella and Rubella ImmuneRPR: NRUrine cultures: negativeHep B s ag: negativeHIV: NRGonorrhea and chlamydia: negativeCystic Fibrosis: negativeSMA: negativeUltrasound nlFirst trimester screen negative and elevated M SAFP1 hr GTT: 186-3 hr GTT: 84, 222, 185, and 84Ultrasound- 33 weeks and 3/7 2394 gms 57 %, vtrx, nl afvObjective:Past Medical History:Diagnosis Date Diabetes mellitus gestational-diet cont rolled Lumbar herniated disc PancreatitisPast Surgical History:Proce dure Laterality Date GA GI ENDOSCOPIC ULTRASOUND N/A 018 Procedure: ENDOSCOPIC ULTRASOUND; Surgeon: Amarjit Bahena MBBS; Location: [facility]; Service: GastroenterologySocial HistorySocial His toryTobacco Use Smoking status: Never Smoker Smokeless tobacco: Never UsedSubstance Use Topics Alcohol use: No Drug use: Yes Types: MarijuanaFamily H istoryProblem Relation Age of Onset Diabetes Paternal Grandmother Diabetes Maternal AuntAllergiesAllergen Reactions Dilaudid [Hydromorphone] Shortness Of B reath Itchy, hives, shortness of breath. Patient tolerates morphine. Amoxicillin Swelling Reglan [Metoclopramide] Increased pain ObjectiveBP (!) 156/91 | Pulse 117 | Temp 98.6 F (37 C) | Resp 19 | LMP 10/10| SpO2 99%General: alert, appears stated age and cooperativeSkin: Skin c olor, texture, turgor normal. No rashes or lesionsHEENT: Head: Normal, normocephal ic, atraumatic.Lungs: clear to auscultation bilaterallyHeart: regular rate and rhy thmAbdomen: FHT presentExtremities: extremities normal, atraumatic, no cyano sis or edema, Homans signis negative, no sign of DVT and no edema, redness or tenderne ss in the calves orthighsPelvis: External genitalia: normal general appearanceFHT: Category: I Baseline: 140 Variability: moderate Decels: noneUterine Activity: regular, every 2-3 minutesPresentations: cephalicCervix: Dilation: 1 Effacement: 50 Station: -3 Consistency: medium Position: posteriorEFW: 8 lbsLab Review GBS: Neg ativeAssessment: 39 and 4/7 weeks gestation.GDM A1Rh negativeGBS negativeE zelalem laborPlan:PlanAdmit, IV fluid bolusFollow progressRisks associated wit h DM ie Shoulder dystocia, potential for CD and neonataladmission to NICU were revie wed ID Date Data Source [id number] 08/01/2019 10:36:00 AM EDT [employer] Name Value Range Interpretation Description Data Sup porting Code Source(s) Document(s ) SYPHILIS RPR Non-React Non-React [place] [facility] ID Date Data Source [id number] 08/01/2019 07:03:00 AM EDT [facility] Name Value Range Interpretation Description Data Sup porting Code Source(s) Document(s ) CREATININE 0.55-1.02 Below low normal [facility] EGFR ALEIDA [place] [facility] EGFR AA FEMALE [facility] ID Date Data Source [id number] 08/01/2019 07:03:00 AM EDT [facility] Name Value Range Interpretation Description Data Sup porting Code Source(s) Document(s ) BLOOD UREA 6 mg/dL 8-20 Below low normal [facility] NITROGEN ID Date Data Source [id number] 08/01/2019 06:59:00 AM EDT [facility] Name Value Range Interpretation Description Data Sup porting Code Source(s) Document(s ) WBC 15.3 3.9-10.7 Above high normal [place] 10^3/ Health L RBC 3.70 4.00-5.1 Below low normal [place] 10^6/ 0 Health L HEMOGLOBIN 10.5 12.0-14. Below low normal [place] g/dL 7 Health HEMATOCRIT 32.0 % 37.1-45. Below low normal [place] 4 [facility] MCV 86.5 fL 81.9-99. [place] 9 [facility] MCH 28.4 pg 26.2-32. [place] [facility] 7 [facility] MCHC 32.8 30.9-33. [place] [facility] g/dL 8 [facility] RDW 13.0 % 11.5-15. [place] 0 [facility] PLATELET COUNT 247 126-373 [place] 10^3/ Health L NEUTROPHILS 12.2 1.5-7.5 Above high normal [place] ABSOLUTE COUNT 10^3/ Health L LYMPHOCYTES 1.5 0.7-3.6 [place] ABSOLUTE COUNT 10^3/ Health L MONOCYTES 1.4 0.2-1.1 Above high normal [place] ABSOLUTE COUNT 10^3/ Health L EOSINOPHILS 0.10 0.00-0.5 [place] ABSOLUTE COUNT 10^3/ 0 Health L BASOPHILS 0.0 0.0-0.1 [place] ABSOLUTE COUNT 10^3/ Health L NEUTROPHILS 79.6 % 41.7-78. Above high normal [place] RELATIVE 9 Health PERCENT LYMPHOCYTES 9.7 % 10.8-45. Below low normal [place] RELATIVE 9 Health PERCENT MONOCYTES 9.0 % 3.7-15.0 [place] REL[facility]IVE [facility] PERCENT EOSINOPHILS 0.7 % 0.0-5.7 [place] [facility] PERCENT BASOPHILS 0.2 % 0.0-1.5 [place] [facility] PERCENT IG RELATIVE 0.8 % 0.0-3.0 [place] PERCENT Health ANC AUTO DIFF 58750 1,500-8, Above high normal [place] Cells/mm 000 Health 3 ID Date Data Source [id number] 08/01/2019 06:52:00 AM EDT [facility] Name Value Range Interpretation Description Data Sup porting Code Source(s) Document(s ) URINE Negative Negative [place] AMPHETAMINE Health URINE Negative Negative [place] BARBITURATES Health URINE Negative Negative [place] BENZODIAZEPINE Health URINE COCAINE Negative Negative [facility] URINE METHADONES Negative Negative [facility] URINE OPIATES Negative Negative [facility] URINE Negative Negative [facility] PHENCYCLIDINE [facility] URINE Negative Negative [facility] CANNABINOIDS Health ID Date Data Source [id number] 06/24/2019 03:41:29 PM EDT [facility] Name Value Range Interpretation Description Data Sup porting Code Source(s) Document(s ) [facility] Interface Message Text Per dr david, ok to discharge home, jana ent received written and verbaldischarge instructions, questions encouraged and a nswered, [place], ambulatory ID Date Data Source [id number] 06/24/2019 03:32:27 PM EDT [facility] Name Value Range Interpretation Description Data Sup porting Code Source(s) Document(s ) Insurance Counselor [facility] Interface Message Text EXAMINATION:US BIOPHYSICAL PRO WO STRESS HISTORY:leakage of amniotic fluidCOMPARISON:February 20, 2019, Sep tember 2018, December 16, 2018, March 14, 2019.TECHNIQUE:Biophysical profile was performed on 3rd trimester gestation.FINDINGS:There is a single i ntrauterine gestation in vertex presentation. The placentais anterior grade 2to grade 3 in maturity and free of the os.The amniotic fluid is normal and the amnioti c fluid index is 11.7 cm and thelargest pocket offluid is 3.8 cm. cardiac activity is present at 130 beats per minute.Measurement parameters are desc ribed below:Biparietal diameter is 8.7 cm corresponding to 35 weeks 0 days.Femur l ength is 6.4 cm corresponding to 32 weeks 6 days.Head circumference is 31.3 cm corre sponding to 35 weeks 1 day.Abdominal circumference is 31.1 cm corresponding t o 35 weeks 1 day.Gestational age on this study is 34 weeks 4 days. From the 1st ultrasound doneSept2018,EDC is determined to be August 07, 2019. From t his study, patient should be 33weeks 5 days.Estimated weight is 2436 g +/-365 g corresponding to 5 pound 6 ounces+/-13 ounces.The cervix by trans abdominal probe is normal measuring 3.1 cm.The biophysical profile is 8 out of 8 without nonstress test. breathing movement is 2 out of 2. movement is 2 out of 2. tone is 2 out of 2.Qualitative amniotic fluid volume is 2 out of 2.IMPRESSION:There is a single intrauterine gestation in vertex present ation that measures 34weeks 4 days.This represents appropriate growth from the p revious study.The biophysical profile is 8 out of 8 without nonstress test.Correlat ion with follow-up is suggested for evaluation of growth and fetalwell -being.US reviewed. Normal fluid. BPP 8/8.Pt stable for discharge to homeNeeds to fol [facility] week.Perfecto David ID Date Data Source [id number] 06/24/2019 03:26:16 PM EDT [facility] ORIGINAL: Sat Jun 24, 2019 3:26 PM by Kayce Lee MDEXAMINATION:US BIOPHYSICAL PRO WO STRESSHISTORY:leakage of amniotic fluidCOMPARISON:February 20, 2019, January 02, 2019, December 16, 019, March 14, 2019.TECHNIQUE:Biophysical profile was performed on 3rd trimester g estation.FINDINGS:There is a single intrauterine gestation in vertex present ation. The placenta is anterior grade 2to grade 3 in maturity and free of the os.T he amniotic fluid is normal and the amniotic fluid index is 11.7 cm and the largest p ocket offluid is 3.8 cm. cardiac activity is present at 130 beats per min [place].Measurement parameters are described below:Biparietal diameter is 8.7 cm tho esponding to 35 weeks 0 days.Femur length is 6.4 cm corresponding to 32 weeks 6 days. Head circumference is 31.3 cm corresponding to 35 weeks 1 day.Abdominal circumferenc e is 31.1 cm corresponding to 35 weeks 1 day.Gestational age on this study is 34 weeks 4 days. From the 1st ultrasound done December 16, 2018,EDC is determined to b e August 07, 2019. From this study, patient should be 33 weeks 5 days.Estimated feta l weight is 2436 g +/-365 g corresponding to 5 pound 6 ounces +/-13 ounces.The cervix by transabdominal probe is normal measuring 3.1 cm.The biophysical profile is 8 out of 8 without nonstress test. breathing movement is 2 out of 2. movement is 2 out of 2. tone is 2 out of 2.Qualitative amniotic fluid volume is 2 out of 2.IMPRESSION:There is a single intrauterine gestation in vertex present ation that measures 34 weeks 4 days.This represents appropriate growth from the p revious study.The biophysical profile is 8 out of 8 without nonstress test.Correlat ion with follow-up is suggested for evaluation of growth and wel l-being. Name Value Range Interpretation Code Description Data Nayely rce(s) Supporting Document(s ) ID Date Data Source [id number] 06/24/2019 02:35:16 PM EDT [employer] Name Value Range Interpretation Description Data Sup porting Code Source(s) Document(s ) Insurance Counselor [employer] Interface Message Text OB TRIAGE NOTESubjective: Complains of: Leakage of fluid since this afternoon. Reports after going torestroom had gush of fluid. Reports clear. Denies vaginal bleeding. Deniescontractions. Reports go od FM. complications:- elevated AFP: following with MFM- GDMA1: good glucose control- hx of opiate abuse: s/p rehab. No MATObjective::Vital Signs (Last Recorded ):Vitals: 06/24/19 1342BP: 122/72Pulse: 98Resp: 18Temp: 98.6 F (37 C) H eart Rate: Category: IBaseline: 135bpmVariability: moderateDecels: noneU terine Activity: irregular contractionsAbd: soft, nontender, gravid and FHT presentS SE: no fluid noted on valsalva or pooling within vaginal canalWith Forensics Team Director in Ro om: Cervical Exam: 0/0/-3/firm/middleExtremities: edema neg ativeAssessment:23yo at 34w1d who presents for LOFPlan:# LOF:Reactive trac ingAmnisure negativeNo fluid noted on SSEUS ordered to check fluidIf normal US, will send home#GDMA1:- sugar 90 on presentationNefertari David ID Date Data Source [id number] 06/24/2019 02:12:00 PM EDT [employer] Name Value Range Interpretation Description Data Sup porting Code Source(s) Document(s ) GLUCOSE POC 90 mg/dL 70-110 [facility] ID Date Data Source [id number] 06/24/2019 02:04:00 PM EDT [facility] Name Value Range Interpretation Description Data Sup porting Code Source(s) Document(s ) AMNISURE Negative Negative [facility] ID Date Data Source [id number] 03/30/2019 11:59:22 AM EST [facility] Name Value Range Interpretation Description Data Sup porting Code Source(s) Document(s ) Insurance Counselor [employer] [facility] Interface Message Text SubjectivePatient: Arcelia Austin 1995Arcelia Austin is a 23 y.o. female who presents for a visit with a gianni pinon of [facility] Arcelia Palacios 23 y.o female with PMSHx listed below [facility]. Reported she is 22 weeks , first baby, fo llowed byMosinee Run OB-QUALITY ASSURANCE NURSE. Reported she was seen in Emergence Department (ED) on for complaint nausea and vomiting for 2 days (resolved). 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 Denies nausea,vomiting, di arrhea, fever. [facility] or twiceand is not satisfie d with their service.NauseaThis is a new problem. Episode onset: for 2 days. The problem has been resolved.Associated symptoms include nausea and vomiting. Pertinent n egatives include nochange in bowel habit, chest pain, chills or fever. Nothing agg ravates thesymptoms. The treatment provided significant relief.Review of SystemsCons titutional: Negative for chills and fever.Respiratory: Negative.Cardiovascul ar: Negative. Negative for chest pain.Gastrointestinal: Positive for naus ea and vomiting. Negative for change in bowelhabit.Neurological: Negative.Psychi atric/Behavioral: Negative.Patient History:Past Medical History:Past Medica l History:Diagnosis Date Lumbar herniated disc PancreatitisPast Surgical History:Past Surgical History:Procedure Laterality Date GA GI ENDOSCOPIC ULTRASOUND N/A 018 Procedure: ENDOSCOPIC ULTRASOUND; Surgeon: Amarjit Bahena MBBS; Location: [facility]; Service: GastroenterologyPast Social History:Soci al HistorySocioeconomic History Marital status: Single Spouse name: No t on file Number of children: Not on file Years of education: Not on file Highest education level: Not on fileOcc upational History Not on fileSocial Needs Financial resource strain: Not on file Food insecurity: Worry: Not on file I nability: Not on file Transportation needs: Medical: Not on file Non-medical: Not on fileTobacco Use Smoking status: Never Smoker Smokeless tobacco: Never UsedSubstance and Sexual Activity Alcohol use: No Drug use: Yes Types: Marijuana Sexual activity: Yes Partners: Neil medrano Physical activity: Days per week: Not on file Minutes per session: Not on file Stress: Not on fileRelationships Social connections: Talks on phone: No t on file Gets together: Not on file Attends nondenominational service: Not on file Active member of club or organization: Not on file Attends meetings of clubs or organ izations: Not on file Relationship status: Not on file Intimate partner violence: Fear of cur rent or ex partner: Not on file Emotionally abused: Not on file Physically abused: Not on file Forced sexual activity: Not on fileOther Topics Concern Not on fileSocial History Narrative Not on filePast Family History:Family H istoryProblem Relation Age of Onset Diabetes Paternal Grandmother Diabetes Maternal AuntAdditional Patien t Information:Allergies: Dilaudid [hydromorphone]; Amoxicillin; and Reglan [metoclopramide]Medications:Current Outpatient MedicationsMedication Sig Dis pense Refill nitrofurantoin, macrocrystal-monohydrat e, (MACROBID) 100 MG capsule Take 1capsule by mouth 2 (two) times daily for 7 days. 14 capsule 0 MV-Min-Fe Fum-FA-DHA ( 1 PO) Take by mouth. buprenorphine-naloxone (SUBOXONE) 8 mg/ [address] 1 tablet under thetongue daily.No current facility-administered m edications for this visit.Depression Screening:Total Score: PHQ-2 Total Score: 0ObjectiveVital Signs:BP 112/69 (BP Location: Right arm, Patient Position: Sitting, BP Cuff Size:Adult) | Pulse 59 | Temp 97.4 F (Oral) | Resp 16 | Ht 5' 4" | Wt 119 lb |LMP 10/28/2018 | SpO2 99% | BMI 2 0.43 kg/mBody mass index is 20.43 kg/m.Physical ExamConstitutional: She is oriented to person, place, and time. She appearswell-developed and well-nourished . No distress.Cardiovascular: Normal rate, regular rhythm and normal heart sounds.P ulmonary/Chest: Effort normal and breath sounds normal.Abdominal: Soft. Bowel nayely nds are normal.Neurological: She is alert and oriented to person, place, and time.Skin : She is not diaphoretic.Psychiatric: Her behavior is normal.Nursing note and mariano ls reviewed.Assessment/Plan:Arcelia was seen today for establish care.Diagnoses and a ll orders for this visit:Nausea and vomiting, intractability of vomiting not specified , unspecifiedvomiting type - Resolved - Encouraged frequent hand wash - Co ntinue to follow up with OB-GYNReturn in about 6 months (around 09/29/2019). ID Date Data Source [id number] 03/27/2019 04:45:39 PM [facility] [employer] Name Value Range Interpretation Description Data Sup porting Code Source(s) Document(s ) Insurance Counselor [employer] Authentication Health Interface Message Text HISTORY OF PRESENT ILLNESS 03/27/2019, 10:34 AM. History Provided by: patient Chief C omplaint: Emesis; diarrhea Arcelia Austin is a 23 y.o. 21-week pregna nt female s/p EUS a yearago, with PMHx of pancreatitis, presenting to the ED fo r acute onset emesis anddiarrhea since last night. The pt states she has had at [facility] three bouts ofN/V and diarrhea with loose stool since last night which has persist ed intotoday prompting an ED visit. On ED arrival, the pt denies any pain,hemateme sis/coffee-ground emesis/bilious vomitus, hematochezia/melena,hematuria, or vagina l bleeding/discharge. Patient denies fever/chills, chestpain, shortness of br eath, abdominal pain, dysuria, and focal deficits. 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.PCP: [facility] ---- REVIEW OF SYSTEMS The following sy stems were reviewed:Constitutional: No fever, chillsEyes: No vision changesENT: No con gestion, sore throatCardiovascular: No chest painRespiratory: No shortness of breath, coughGastrointestinal: Positive nausea, vomiting, diarrhea, no abdominal pain,co nstipationGenitourinary: No dysuria, vaginal bleeding/dischargeMusculoskeletal: No sw elling, calf painIntegumentary: No rashesNeurological: No focal weakness, n umbness, tingling, headache, dizzinessAll other systems negative except as marked- PAST HISTORY Past Medical History:Diagnosis Date Lumbar herniated disc PancreatitisPast Surgical History:Proce dure Laterality Date GA GI ENDOSCOPIC ULTRASOUND N/A 018 Procedure: ENDOSCOPIC ULTRASOUND; Surgeon: Amarjit Bahena MBBS; Location: [facility]; Service: GastroenterologySocial History:Social Hi storyTobacco Use Smoking status: Never Smoker Smokeless tobacco: Never UsedSubstance Use Topics Alcohol use: No Drug use: Yes Types: MarijuanaThe jana ent's home medications have been reviewed.Allergies: Dilaudid [hydromorph one]; Amoxicillin; and Reglan [metoclopramide] ---- PHYSICAL EXAM BP 115/60 (B P Location: Right arm, Patient Position: Lying) | Pulse 116 | Temp98.7 F (37. 1 C) (Oral) | Resp 16 | Wt 121 lb (54.9 kg) | LMP 10/28/2018 |SpO2 97% | BMI 20.77 kg/mConstitutional: Well developed, well nourished. GCS is 15. No evidence ofrespiratory distress.Head: Atraumatic. Normocephalic.Eyes: PERRL. Conjunctiva e are not pale.ENT: Mucous membranes are moist and intact. Oropharynx is clear a nd symmetric.Neck: Supple. No nuchal rigidity. Full ROM.Cardiovascular: Reg ular rate. Regular rhythm. No murmurs, rubs, or gallops.Pulmonary/Chest: Clear to auscultation bilaterally. No wheezing, rales orrhonchi.Abdominal: Soft and gra vid. There is no tenderness. No rebound, guarding, orrigidity. No organomegaly. Normal bowel sounds. No pulsatile mass.Back: No CVA tenderness.Extremitie s: No edema. No cyanosis. Distal pulses are 2+. No calftenderness.Skin: Skin i s warm and dry. No petechiae. No purpura.Neurological: Alert, awake, and appropriate. Normal speech. No acute focalneurological deficits are appreciat ed.Psychiatric: Good eye contact. Normal affect and behavior. ---- LABORATORY RESULTS Results for ord ers placed or performed during the hospital encounter of 03/27/19CB auto differenti alResult Value Ref Range WBC 16.3 (H) 3.9 - 10.7 10^3/L RBC 3.94 (L) 4.00 - 5.10 1 0^6/L Hemoglobin 12.0 12.0 - 14.7 g/dL Hematocrit 36.3 (L) 37.1 - 45.4 % MCV 92 .1 81.9 - 99.9 fL MCH 30.5 26.2 - 32.7 pg MCHC 33.1 30.9 - 33.8 g/dL RDW 12.4 11.5 - 15.0 % Platelets 224 126 - 373 10^3/L Neutrophils Absolute 15.1 (H) 1.5 - 7.5 10^3/L Lymphocytes Absolute 0.5 (L) 0.7 - 3.6 10^3/L Monocytes Absolute 0.5 0.2 - 1.1 10^3/L Eosinophils Absolute 0.09 0.00 - 0.50 10^3/L Basophils Absolute 0.0 0 .0 - 0.1 10^3/L Neutrophils Relative 92.6 (H) 41.7 - 78.9 % Lymphocytes Relative 3 .3 (L) 10.8 - 45.9 % Monocytes Relative 2.9 (L) 3.7 - 15.0 % Eosinophils Relative 0. 6 0.0 - 5.7 % Basophils Relative 0.2 0.0 - 1.5 % IG Relative 0.4 0.0 - 3.0 % Abs Ne utrophil Count 15,094 (H) 1,500-8,000 Cells/[id number] metabolic panelResult Maryan ue Ref Range Sodium 136 136 - 144 mEq/L Potassium 3.5 3.5 - 5.1 mEq/L Chloride 1 08 101 - 111 mEq/L CO2 18 (L) 22 - 32 mEq/L BUN 6 (L) 8 - 20 mg/dL Glucose 85 70 - 1 10 mg/dL Calcium 8.8 8.5 - 10.1 mg/dL Creatinine <0.50 (L) 0.55 - 1.02 mg/dL A nion Gap 10 8 - 17 mEq/L eGFR eGFR NON AMERICANHepati c function panelResult Value Ref Range Albumin 3.1 (L) 3.5 - 4.8 g/dL Total Pro tein 6.6 6.4 - 8.3 g/dL Total Bilirubin 1.1 0.3 - 1.2 mg/dL Bilirubin, Direct 0.13 0 .10 - 0.50 mg/dL Bilirubin, Indirect 0.97 (H) 0 - 0.7 mg/dL Alkaline Phosphatase 41 (L ) 45 - 117 U/L AST 17 15 - 41 U/L ALT 15 14 - 54 U/LLipaseResult Value Ref Range Lipas e 28 22 - 51 U/LUrinalysisResult Value Ref Range Clarity, UA Hazy (A) Clear Color, UA Yellow Colorless, Yellow, Straw Specific [place], UA 1.021 1.001 - 1.035 Glucose, UA Negative Negative mg/dL pH, UA 5.0 5.0 - 8.0 Blood, UA Moderate (A) Negative Prot ein, UA Negative Negative mg/dL Bilirubin, UA Negative Negative Urobilinogen, UA Negat chante Negative mg/dL Ketone UA 20 (A) Negative mg/dL Nitrite, UA Negative Negative Leuk ocytes, UA Small (A) Negative WBC, UA 2 <6 /HPF RBC, UA 1 <3 /HPF Bacteria Few /HPF Mucous Rare /HPF Squam Epithel, UA 2 (H) <1 /HPF Hyaline Casts, UA 1 <3 /LPFBHCG POC Result Value Ref Range BHCG Quant Blood POC >2,000.0 (H) <5.0 IU/L BHCG Qual Blood P OC Positive PROGRESS NOTES --Time: 10:34 AMInitial history and physical performed as documented above. Will orde r Zofranfor nausea relief and IV fluid for hydration. Will obtainOrders Placed Thi s EncounterProcedures CBC auto differential Basic metabolic panel Hepatic function panel Lipase UrinalysisTime: 2:00 [facility] patient rec eived Zofran and IV fluid and on re-examination shows noimprovement of he r symptoms after the intervention. Will order Reglan, Benadryl,and more IV fluid for s ymptoms relief.Time: 2:56 [facility] [place] patient received Reglan, Benadryl, and more IV f luid, and on re-examinationshows improvement of her symptoms after the intervention. EP at patient'sbedside. The patient now states that all nausea has resolved and is informed oftoday's test results. Pt is now tolerating PO without recurrence nausea. Repeatabdominal exam demonstrates no tenderness in any quadrant, no guarding, norebound. Pt advised to return to ED for recurrence of symptoms. Will orderMacro bid to treat UTI. Stable for discharge.Time: 2:58 PMEP at patient's bedside. Results discussed with patient. Patient is in NAD,resting comfortably at this time. W ill discharge patient home in stablecondition with Macrobid. Pt should follow up with OBGYN. COUNSELING -Counseling: The emergency provider has spoken with the patient and discussedtod ay s findings, in addition to providing spe cific details for the plan ofcare. Questions are answered. There is agreement with t he plan. Discussed thereturn indications and importance of follow-up. ------ MEDICAL DECISION MAKING Vital Signs: Revi ewed the patient s vital signs.Pulse oximetry interpretat ion: Not Hypoxic on room airNursing Notes: Reviewed and utilized the nursing notes. Old Medical Records: The patient's available past medical records and pastencounters were reviewed.Laboratory Studies: Ordered and independently interpreted laboratory benito sloan villalba.Additional MDM and Provider Notes: pt tolerating po prior to dc, no complaintsof vaginal discharge, bleeding or decreased movement, will follow up withob and pcp, will return to ed if worse or for any concerns -- IMPRESSION AND DISPOSITION IMPRESSION1. Asympto matic bacteriuria during pregnancy2. Gastroenteritis3. 21 weeks gestation of pregnancyDISPOSITIONDisposition: dischargedPatient condition: StableSCRIB E ATTESTATIONBy signing my name below, I, Marcos Martinez, ED Scribe, attest that th isdocumentation has been prepared under the direction and in the presence of Марина Oneal MD.Electronically Signed: HARI Pritchard, 2018, 2:59 PMI, Марина Mina MD, personally performed [facility] All [facility] and in my presence. I have reviewed the chart and dischargeinstructions (if applicable) and agree that the records reflects my personalperformance and is a ccurate and complete.LEATHA De La Rosa. 03/27/2019 2:59 PMМарина Delgado MD 1645 ID Date Data Source [id number] 03/27/2019 03:28:35 PM EST [facility] Name Value Range Interpretation Description Data Sup porting Code Source(s) Document(s ) Insurance Counselor [place] Authentication Health Interface Message Text Reevaluated feeling better now started o n macrobid no reaction to follow up withob copra processor discharged with insruction and presc ription understood as verbalized. ID Date Data Source [id number] 03/27/2019 02:19:00 PM EST [facility] Name Value Range Interpretation Description Data Sup porting Code Source(s) Document(s ) CLARITY Hazy Clear Abnormal [place] [place] (applies to Health non-numeric results) COLOR Yellow Colorless, [facility] Yellow, Health Straw SPECIFIC 1.021 1.001-1.03 [facility] GRAVITY UA 5 Health GLUCOSE UR Negative Negative [facility] mg/dL Health PH UA 5.0 5.0-8.0 [facility] BLOOD UA Moderate Negative Abnormal [place] (applies to Health non-numeric results) PROTEIN UR Negative Negative [facility] mg/dL Health BILIRUBIN UA Negative Negative [facility] UROBILINOGEN Negative Negative [facility] UA mg/dL Health KETONE UA 20 mg/dL Negative Abnormal [facility] [place] (applies to Health non-numeric results) NITRITE UA Negative Negative [facility] LEUKOCYTE Small Negative Abnormal [facility] ESTERASE UA (applies to Health non-numeric results) WBC UA 2 /HPF <6 [facility] RBC UA 1 /HPF <3 [facility] BACTERIA UA Few /HPF [facility] MUCOUS UA Rare /HPF [facility] SQUAMOUS 2 /HPF <1 Above high [facility] EPITHELIAL normal Health HYALINE CASTS 1 /LPF <3 [facility] ID Date Data Source [id number] 03/27/2019 11:13:00 AM EST [facility] Name Value Range Interpretation Code Description Data Nayely rce(s) Supporting Document(s ) BHCG QUANT <5.0 Above high normal [facility] BLOOD POC BHCG QUAL Positive [facility] BLOOD POC ID Date Data Source [id number] 03/27/2019 11:24:00 AM EST [facility] Name Value Range Interpretation Description Data Sup porting Code Source(s) Document(s ) ALBUMIN 3.1 g/dL 3.5-4.8 Below low normal [facility] TOTAL PROTEIN 6.6 g/dL 6.4-8.3 [facility] BILIRUBIN 1.1 0.3-1.2 [facility] TOTAL mg/dL Health BILIRUBIN 0.13 0.10-0.5 [facility] DIRECT mg/dL 0 Health BILIRUBIN, 0.97 0-0.7 Above high normal [facility] INDIRECT mg/dL Health ALKALINE 41 U/L 45-117 Below low normal [facility] PHOSPHATASE Health AST (SGOT) 17 U/L 15-41 [facility] ALT (SGPT) 15 U/L 14-54 [facility] ID Date Data Source [id number] 03/27/2019 11:17:00 AM EST [facility] Name Value Range Interpretation Code Description Data Nayely rce(s) Supporting Document(s ) LIPASE 28 U/L 22-51 [facility] ID Date Data Source [id number] 03/27/2019 11:17:00 AM EST [facility] Name Value Range Interpretation Description Data Sup porting Code Source(s) Document(s ) SODIUM 136 136-144 [facility] mEq/L Health POTASSIUM 3.5 3.5-5.1 [facility] mEq/L Health CHLORIDE 108 101-111 [facility] mEq/L [facility] CO2 18 mEq/L 22-32 Below low normal [facility] BLOOD UREA 6 mg/dL 8-20 Below low normal [facility] NITROGEN Health GLUCOSE 85 mg/dL 70-110 [facility] CALCIUM 8.8 8.5-10.1 [facility] mg/dL Health CREATININE 0.55-1.0 Below low normal [facility] 2 Health ANION GAP 10 mEq/L 8-17 [facility] EGFR [facility] DUTCH [facility] EGFR NON [facility] DUTCH ID Date Data Source [id number] 03/27/2019 11:03:00 AM EST [facility] Name Value Range Interpretation Description Data Sup porting Code Source(s) Document(s ) WBC 16.3 3.9-10.7 Above high normal [facility] 10^3/ Health L RBC 3.94 4.00-5.1 Below low normal [facility] 10^6/ 0 Health L HEMOGLOBIN 12.0 12.0-14. [facility] g/dL 7 Health HEMATOCRIT 36.3 % 37.1-45. Below low normal [facility] 4 Health MCV 92.1 fL 81.9-99. [facility] 9 Health MCH 30.5 pg 26.2-32. [facility] 7 [facility] MCHC 33.1 30.9-33. [facility] g/dL 8 Health RDW 12.4 % 11.5-15. [facility] 0 [facility] PLATELET COUNT 224 126-373 [facility] 10^3/ Health L NEUTROPHILS 15.1 1.5-7.5 Above high normal [facility] ABSOLUTE COUNT 10^3/ Health L LYMPHOCYTES 0.5 0.7-3.6 Below low normal [facility] ABSOLUTE COUNT 10^3/ Health L MONOCYTES 0.5 0.2-1.1 [facility] ABSOLUTE COUNT 10^3/ Health L EOSINOPHILS 0.09 0.00-0.5 [facility] ABSOLUTE COUNT 10^3/ 0 Health L BASOPHILS 0.0 0.0-0.1 [facility] ABSOLUTE COUNT 10^3/ Health L NEUTROPHILS 92.6 % 41.7-78. Above high normal [facility] RELATIVE 9 Health PERCENT LYMPHOCYTES 3.3 % 10.8-45. Below low normal [facility] RELATIVE 9 Health PERCENT MONOCYTES 2.9 % 3.7-15.0 Below low normal [facility] RELATIVE Health PERCENT EOSINOPHILS 0.6 % 0.0-5.7 [facility] RELATIVE Health PERCENT BASOPHILS 0.2 % 0.0-1.5 [facility] RELATIVE Health PERCENT IG RELATIVE 0.4 % 0.0-3.0 [facility] PERCENT Health ANC AUTO DIFF [id number] 1,500-8, Above high normal [facility] Cells/mm 000 Health 3 ID Date Data Source [id number] 03/27/2019 10:02:19 AM EST [facility] Name Value Range Interpretation Description Data Sup porting Code Source(s) Document(s ) Insurance Counselor [place] Aut[employer] Health Interface Message Text Pt arrives to ED 5 months , repo rting she has had multiple episodes ofvomiting and diarrhea since approx mid night last night. ID Date Data Source [id number] 03/14/2019 12:28:29 PM EST [facility] ORIGINAL: Ashu Mar 14, 2019 12:28 PM by Aureliano Bobby MDEXAMINATION:US OB AFTER 1ST TRIMESTERHISTORY:Encounter for super vision of normal first in second trimesterCOMPARISON:12/16/2018, 01/03/20, 02/20/2019TECHNIQUE: sonography was performed.FINDINGS:Transabdominal evalua tion of the gravid uterus demonstrates a single live intrauterine gestation inver akash presentation. The placenta has formed anteriorly and is free of the internal c ervical os.There is a 2.1 x 1.3 cm probable venous [place] identified. There is a norm al amount of amnioticfluid with an index of 13.8 cm. The largest fluid pocket measu res 4.2 cmBiparietal diameter: 44.9 mm corresponding to a 19 week 4 day gestati onal sizeHead circumference: 173.5 mm corresponding to a 19 week 6 day gestati onal sizeAbdominal circumference: 154.5 mm corresponding to a 20 week 4 day gestati onal sizeFemur length: 31.2 mm corresponding to a 19 week 5 day gestational sizeThe c omposite gestational age based on ultrasound criteria is 20 weeks, 0 days.This demon strates normal interval growth from the prior examination 02/20/2019.The estimated jo-ann e of confinement based on the 1st ultrasound is 08/07/2019Fetal Anatomy:Head: Normal. Face, Neck: nose and lips are normal.Thoracic Cavity: Normal.Heart: Fo ur-chamber view of the heart not well seen.Outflow Tracts: Both right and left ventricular outflow tracts are normal.Abdominal Cavity: Normal.Stomach: Normal.Right Kidney: Normal.Left Kidney: Normal.Bladder: Normal.Abdominal Wall: N ormal.Spine: Normal.Extremities: Normal.Genitalia: Not well assessedUmbil ical Cord: 3 vessel view of the umbilical cord with cord insertional views a re normal.The placental cord insertional views not well assessed. cardiac ac tivity is present at 150 beats per minute. body motion is present. Thecervix measures 3.2 cm. The estimated weight is 335 g plus or minus 50 gIMPRESSION:1. Single Live Intrauterine Gestation averaging 20 weeks and 0 days.2. Four-chamber vie w of the heart and placental cord insertional views not well assessed. Name Value Range Interpretation Code Description Data Nayely rce(s) Supporting Document(s ) ID Date Data Source [id number] 03/08/2019 06:17:01 PM [facility] [employer] Name Value Range Interpretation Description Data Sup porting Code Source(s) Document(s ) Insurance Counselor [place] Authentication Health Interface Message Text SubjectivePatient ID: Arcelia barreto is a 23 y.o. female.HPI23 y/o 15 weeks female presents to clinic with a low back injur y andpain. The injury occurred earlier today while at work. 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 She felt a sudden onset of right lower back pain and her right leggave out. Patient notes this same thing happened 4 days ago while working aswell. Reports 6/10 pain to her entire lower back. Pain is worsened by s itting.She took OTC tylenol this morning for the pain without any relief of symptoms.No saddle anesthesia or urinary incontinence. No dysuria or hematuria. No CP orSOB. No abdominal igor n, nausea or vomiting.Hx of herniated lumbar disc. Reportedly injured herself while working severalmonths back and ultimately was found to have a herniation on MRI this pastsummer.Roxana ortiz follows with a chiropractor regularly three times per week for herchronic back pain.Follows [facility]. On pre-lamont vitamins. No leakage of membranes,vaginal bleeding/discharge or pelvic pain.Worker's comp claim.Case discussed with Dr. Mccall via telephone.LMP 10/28/18. [place] 08/04/19.No current PCP.WORKERS COMP C4 SMARTBLOCK FORM ADVANCED:E. History: 1. Based on t he patient's history, where and when did the injury/illnesshappen?: Today 02/11/19 AM while pushing an empty stretched, and also Thnrhtnt60/31/19 while pushing an empty stretcher 2. How did you learn about the injury/illness (check one or specify otherbelow): Jana stevenson Did another healthcare provider treat this injury/illness, includinghospitalization and/or surgery?: No Have you previously treated this patient for a similar work relatedinjury /illness?: NoF. Exam Information: 2. Patient's subjective complaints: no numbness Stiffness Igor n Other / Specify Body Parts: Low back 3. Type/Nature of Injury: 4. Physical examination: 5. Describe any diagnositic test(s) rendering at this visit: None 6. Describe any treatment(s) rend ered at this visit: None 7. Describe prognosis for recovery: TBD 8. Does the patient's me dical history reveal any pre-existing condition(s)that may affect the treatment and/or prognosi s?: Yes List and describe: Lumbar disc herniation, pregnancyG. Doctor's Opinion: 1. In you r opinion, was the incident that the patient described the competentmedical cuase of this injur y/illness?: Yes 2. Are the patient's complaints consistent with his/her history of thein jury/illness?: Yes 3. Is the patient's history of the injury/illness consistent with yourobjec tive findings?: Yes 4. What is the percentage (0-100%) of temporary impairment?: 100H. Plan of Care: 1. What is your proposed treatment?: Rest, OTC tylenol, heat, stretching 2(b). List ov [id number] medications advised:: Tylenol Medication restrictions. May affect patient's abili ty to return to work, makepatient drowsy, or other issue.: No Referrals (select all that a pply): Economics Faculty Member/family physician and specialist Specialist in: OB 5. When is the patie nt's next follow up appointment?: As needed and Within aweekI. Work Status: 1. Has the patient missed work beacuse of the injury/illness?: No Is the patient currently working?: No work 2. Can the patient return to work?: Incapacitated Patient cannot return to work because: , underlying lumbar discherniations, now with back injury at work. 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 How long will these limitations apply?: Unknown With whom will you discuss the patient's return to work and/or limitations?:PatientBoard Authorized [facility] Care [facility]- Check One: Services supervised by boardauthorized providerProvider's Name: Bharathi Diaz MDAdditional Patient Information:Social HistorySocioeconomic History Marital status: Single Spouse name: No ne Number of children: None Years of education: None Highest education level: NoneOccupation al History NoneSocial Needs Financial resource strain: None Food insecurity: Worry: None Inabilit y: None Transportation needs: Medical: None N on-medical: NoneTobacco Use Smoking status: Never Smoker Smokeless tobacco: Never UsedSubstance and Sexual Activity Alcohol use: No Drug use: Yes Sexual activity: Yes Partners: Neil medrano Physical activity: Days per week: None Minutes per session: None Stress: NoneRelationships Social connections: Talks on phone: No ne Gets together: None Attends nondenominational service: None Active member of club or organization: N one Attends meetings of clubs or organizations: None Relationship status: None Intimate partner violence: Fear of cur rent or ex partner: None Emotionally abused: None Physically abused: None Forced sexual a ctivity: NoneOther Topics Concern NoneSocial History Narrative NonePast Medical History:Diagnosis Date Lumbar herniated disc PancreatitisPast Surgical History:Proce dure Laterality Date GA GI ENDOSCOPIC ULTRASOUND N/A 018 Procedure: ENDOSCOPIC ULTRASOUND; Surgeon: Amarjit Bahena MBBS; Location:[facility]; S ervice: GastroenterologyDepression Screening:Total Score: Not performed.Fall Screen: Not Indicate dPatient's medications, allergies, past medical, surgical, social and familyhistories wer e reviewed and updated as appropriate.Review of SystemsConstitutional: Negative for chil ls and fever.HENT: Negative for ear pain and sore throat.Respiratory: Negative for cough a nd shortness of breath.Cardiovascular: Negative for chest pain.Gastrointestinal: Negative for abdo veronique pain, constipation, diarrhea, nauseaand vomiting.Genitourinary: Negative for dys uria.Musculoskeletal: Positive for back pain and stiffness.Skin: Negative for rash.Allerg ic/Immunologic: Negative for immunocompromised state.Neurological: Negative for numbnes s and headaches.Psychiatric/Behavioral: Negative for confusion.ObjectiveBP 109/72 | Pulse 80 | Temp 98.1 F (Oral) | Resp 18 | Ht 5' 4" | Wt 110 lb| LMP 10/28/2018 | SpO2 98% | BMI 18 .88 kg/mPhysical ExamConstitutional: She is oriented to person, place, and time. She appearswell -developed and well-nourished. No distress.HENT:Head: Normocephalic and atraumatic.Mouth/Throa t: Oropharynx is clear and moist. No oropharyngeal exudate.Eyes: Pupils are equal, round, a nd reactive to light. EOM are normal.Neck: Normal range of motion. Neck supple.Musculoskeletal:B ack: Atraumatic. No ecchymosis, erythema or edema visualized. No spinousprocess tenderness . Moderate TTP b/l lumbar paraspinal muscles with tightmuscles. Reduced lateral rotation a nd flexion/extension. 4/5 motor strength.+right SLRB/L LEs with full ROM, 5/5 motor strength, s ensation grossly intact.Ambulating slowly while in clinic.Neurological: She is alert and or iented to person, place, and time.Skin: Skin is warm and dry. No rash noted. She is not diaphoret ic.ProceduresAssessment/Plan:Arcelia was seen today for worker's comp.Diagnoses and all orders f or this visit:Injury of low back, initial encounter- Outpatient referral to Family MedicineHi story of herniated intervertebral disc- Outpatient referral to Family Bhfxkycq99 weeks gest ation of - Outpatient referral to Family Vtrcgeim12 y/o 15 weeks female presents to clinic with a low back injury andpain.Work-related injury+SLR, likely baseline due to herniation hx.Also now 15 weeks , and -related anatomical changes are likelyputting greater strain on her back.OTC Tylenol 650 mg every 6 hours as needed for pain. Rest, increase fluids.Stretch and using heating pad as instructed.Avoid aggravating activities. Follow-up with PCP within 1 week. May require repeat MRI if symptoms worsen.No work until re-eval uated by a PCP/OB to determine return date and/or whetheror not restrictions need to be ma de - referral given to [facility] PCP.Follow- up with OB as scheduled.Report to the ED with any excr uciating pain, inability to hold your urine,development of fever, numbness or tingling.Risks/saba efits of different treatment options were discussed in detail withpatient/guardian. Patient/gua rdian acknowledges verbal understanding of thetreatment plan and has no further questions at thi s time. -----Attestation signed by Bharathi Diaz MD at 6:16 PM (Updated)I have reviewed the case with PATRICIO Marr and agree with treatment plan a sdocumented in note.DOS 02/11/2019 --------- ID Date Data Source [id number] 02/22/2019 01:04:42 PM EST [employer] Name Value Range Interpretation Description Data Sup porting Code Source(s) Document(s ) Insurance Counselor Agentek Interface Message Text HISTORY OF PRESENT ILLNESS 02/17/2019, 4:59 PM. History Provided by: patient Chief C eric: Gary Austin is a 23 y.o. female with a past medical/surgical historyas listed below presenting to the ED for persistent episodes of moderate naus ea,vomiting (non-bloody), and diarrhea (non-bloody) since onset a few days ago. Patient explains that she has been unable to tolerate any PO since onset of hersympto ms. Otherwise, patient denies experiencing fever, chills, cough, shortnessof breath , chest pain, abdominal pain, dysuria, rashes, extremityweakness/numbness/tingl ing, headache, or dizziness. Patient is approximately 16weeks . She curr ently follows up with Dr. Black (OBGYN) and last followedup one week ago. Patient wa s recently treated for a yeast infection; she notesthat symptoms have improved since t reatment and denies recent vaginal bleeding.Patient with history of opiate drug abuse and occasional marijuana use. She wasprescribed Suboxone one year ago. She recently ran out of her prescribedSuboxone three days ago. She began to experience worsening lower back pain(which is chronic) yesterday and was prompted to take a dos e of Percocet.Patient does note that she "feels like she is in withdrawal".[facility] REVIE W OF SYSTEMS Review of SystemsConstitutional: Negative for c hills and fever.Respiratory: Negative for cough and shortness of breath.Cardiovasc ular: Negative for chest pain.Gastrointestinal: Positive for diar carmela, nausea and vomiting. Negative forabdominal pain.Genitourinary: Negativ e for dysuria. - abnormal vaginal bleedingSkin: Negative for rash.Neurolog ical: Negative for dizziness, tingling, sensory change, focal weaknessand headac hes.Psychiatric/Behavioral: Negative.All other systems reviewed and are negative. PAST HISTORY Past Medical History:Diagnosis Date Lumbar herniated disc PancreatitisPast Surgical History:Proce dure Laterality Date GA GI ENDOSCOPIC ULTRASOUND N/A 018 Procedure: ENDOSCOPIC ULTRASOUND; Surgeon: Amarjit Bahena MBBS; Location: [facility]; Service: GastroenterologySocial History:Social Hi storyTobacco Use Smoking status: Never Smoker Smokeless tobacco: Never UsedSubstance Use Topics Alcohol use: No Drug use: Yes Types: MarijuanaThe jana ent's home medications have been reviewed.Allergies: Dilaudid [hydromorph one]; Amoxicillin; and Reglan [metoclopramide] ---- PHYSICAL EXAM BP 110/63 | Pulse 98 | Temp 97.9 F (36.6 C) (Oral) | Resp 16 | Ht 5' 4"(1.626 m) | Wt 110 lb (49.9 kg) | LMP 10/28/2018 | SpO2 99% | BMI 18.88kg/mConstitutional: Well d eveloped, well nourished. GCS is 15. No evidence ofrespiratory distress.Head: A traumatic. Normocephalic.Eyes: PERRL. Conjunctivae are not pale.ENT: Mucous m embranes are moist and intact. Oropharynx is clear and symmetric.Neck: Supple. No n uchal rigidity. Full ROM.Cardiovascular: Regular rate. Regular rhythm. No murmu rs, rubs, or gallops.Pulmonary/Chest: Clear to auscultation bilaterally. No wheezin g, rales orrhonchi.Abdominal: Soft and non-distended. There is mild suprapubic tenderness. Norebound, guarding, or rigidity. No organomegaly. Normal alma rosa l sounds. Nopulsatile mass.Back: Bilateral CVA tenderness.Extremities: No edema. No cyanosis. Distal pulses are 2+. No calftenderness.Skin: Skin is warm and d ry. No petechiae. No purpura.Neurological: Alert, awake, and appropriate. Normal s peech. No acute focalneurological deficits are appreciated.Psychiatric: Good eye c ontact. Normal affect and behavior. LABORA TORY RESULTS Results for orders placed or performed during e hospital encounter of 02/17/19CBC auto differentialResult Value Ref Range WBC 1 0.2 3.9 - 10.7 10^3/L RBC 3.91 (L) 4.00 - 5.10 10^6/L Hemoglobin 11.7 (L) 12.0 - 14.7 g/dL Hematocrit 34.4 (L) 37.1 - 45.4 % MCV 88.0 81.9 - 99.9 fL MCH 29.9 26.2 - 32.7 pg MCHC 34.0 (H) 30.9 - 33.8 g/dL RDW 12.6 11.5 - 15.0 % Platelets 220 126 - 3 73 10^3/L Neutrophils Absolute 7.8 (H) 1.5 - 7.5 10^3/L Lymphocytes Absolute 1.5 0.7 - 3.6 10^3/L Monocytes Absolute 0.7 0.2 - 1.1 10^3/L Eosinophils Absolute 0.09 0.00 - 0.50 10^3/L Basophils Absolute 0.0 0.0 - 0.1 10^3/L Neutrophils Relative 76.9 41.7 - 78.9 % Lymphocytes Relative 15.0 10.8 - 45.9 % Monocytes Relative 6.4 3.7 - 15.0 % Eosinophils Relative 0.9 0.0 - 5.7 % Basophils Relative 0.4 0.0 - 1.5 % IG Relative 0.4 0.0 - 3.0 % Abs Neutrophil Count 7,844 1,500-8,000 Cells/fd1Alrao metabol ic panelResult Value Ref Range Sodium 135 (L) 136 - 144 mEq/L Potassium 3.9 3.5 - 5.1 mEq/L Chloride 102 101 - 111 mEq/L CO2 24 22 - 32 mEq/L BUN 3 (L) 8 - 20 mg/dL Glucos e 82 70 - 110 mg/dL Calcium 9.9 8.5 - 10.1 mg/dL Creatinine <0.50 (L) 0.55 - 1.02 m g/dL Anion Gap 9 8 - 17 mEq/L eGFR eGFR NON AMERICANMagnes iumResult Value Ref Range Magnesium 1.8 1.8 - 2.5 mg/dLUrinalysisResult Value Ref Rang e Clarity, UA Hazy (A) Clear Color, UA Yellow Colorless, Yellow, Straw Specific Gravit y, UA 1.018 1.001 - 1.035 Glucose, UA Negative Negative mg/dL pH, UA 6.0 5.0 - 8.0 Blood, UA Moderate (A) Negative Protein, UA Negative Negative mg/dL Bilirubin, UA Negative Negative Urobilinogen, UA Negative Negative mg/dL Ketone UA 5 (A) Negative mg/dL Nitrite, UA Negative Negative Leukocytes, UA Negative Negative WBC, UA 3 <6 /HPF RBC, UA 8 (H) <3 /HPF Bacteria Few /HPF Mucous Occ /HPF Squam Epithel, UA 5 (H) <1 /HPFhCG, quantitative, pregnancyResult Value Ref Range BHCG LIVE NT SERUM 70,492 mIU/mlLipaseResult Value Ref Range Lipase 27 22 - 51 U/L PROGRESS NOTES Orders Placed This EncounterProcedures CBC auto differential Basic metabolic panel Magnesium Urinalysis hCG, quantitative, Lipase Cardiac monitoring Type: ED Monitoring; Indications: Nausea Continuous Pulse Oximetry Peripheral IV insertionMedicationssodiu m chloride 0.9 % bolus 1,000 mL (1,000 mLs Intravenous New Bag )ondanset maty (ZOFRAN) injection 4 mg (4 mg IV Push Given 02/17/191748)Time: 5:28 PMPatient reports that she experiences anxiety/shaking when given Reglan.Time: 5:52 PMDr. Argentina Franklin (Resident EP) performing bedside ultrasound. Refer to detailedprocedure n ote listed below. BEDSIDE ULTRASOUND (OBGYN) - LIMITED -- Interpreted by Dr. Argentina Franklin (Resident EP) under direction sup erv[facility] providerTime: 5:52 PMConsent: Informed consent, after disc ussion of the risks, benefits, andalternatives to the procedure, was ob tained.Timeout: A timeout to verify the correct patient, procedure, and site was performed.Indication: Emesis; pregnancyStructures/Organs Investigated: Abdomen/uterusInterpretation: heart rate is currently 140 bpm. Fetus is movi ng allextremities.Post-procedure: Patient tolerated the procedure well with no imm ediatecomplications.Time: 6:45 PMRe-evaluation. EP at patient's bedsid e. The patient continues to complain ofsome nausea at this time, but otherwise feels improved. Patient updatedconcerning recent results. Will have patient attempt PO c hallenge. Willcontinue to monitor.Time: 6:54 PMRe-evaluation. EP at patient's bedsid e. Patient is in NAD, resting comfortablyat this time. On re-examination, patient a ble to tolerate PO at this time.Results discussed with patient in full detail in which they verbalize theirunderstanding and all questions have been answered at this time. Pt is stablefor discharge; EP provided specific conditions for return, emphasized theimportance of follow-up, and provided counseling as below. Patient i nstructedto follow-up with PCP/OBGYN. MEDICAL DECISION MAKING Vital Signs: Reviewed the patient s vital signs.Nursing Notes: Reviewed an d utilized the nursing notes.Old Medical Records: The patient's available past co dical records and pastencounters were reviewed.Laboratory Studies: Ordered and independently interpreted laboratory tests, seeabove.Additional MDM and Provider Not es: IMPRESSION AND DISPOSITION IMPRESSI ON1. Opiate withdrawalDISPOSITIONDisposition: DischargePatient condition: Stable------ COUNSELING Counseling : The emergency provider has spoken with the patient and discussedtoday s findings, in addition to providing spe cific details for the plan ofcare. Questions are answered. There is agreement with t he plan. Discussed thereturn indications and importance of follow-up. ------- SCRIBE ATTESTATION By signing my name alvaro rojas I, Neo Allensaúlcee, attest that this documentationhas been prepared unde r the direction and in the presence of Vivi Hutchison MD.Electronically Signed: Adriana Elias, ED Scribe. 02/17/2019, 6:55 PM.I, Vivi Hutchison MD, personally p erformed the services described in thisdocumentation. All medical record en tries made by the scribe were at [facility] and in my presence. I have reviewed the chart and dischargeinstructions (if applicable) and agree that the record re flects my personalperformance and is accurate and complete. Vivi Hutchison MD 2018, 6:55PM.Vivi Hutchison MD02/22/19 1304 ID Date Data Source [id number] 02/21/2019 03:04:42 PM EST [employer] Name Value Range Interpretation Description Data Sup porting Code Source(s) Document(s ) Insurance Counselor [employer] Health Interface Message Text BP 110/63 | Pulse 98 | Temp 97.9 F ( 36.6 C) (Oral) | Resp 16 | Ht 5' 4"(1.626 m) | Wt 110 lb (49.9 kg) | LMP 10/28/2018 | Sp O2 97% | BMI 18.88kg/mPCP [facility] - InternalHistoryChief Complaint Patient presents with Nausea [id number] y/o 16 week F w ith h/o drug abuse and recurrent pancreatitispresents to the ED for evaluation of nausea, vomitin g, diarrhea, generalizedarthralgias, loss of appetite onset 2 days ago. Pt has h/o opiate abus e(percocet), but started suboxone when she found out she was . Pt allowedher rx for it to run out 3 days ago because she wants to stop all opiates, butnow thinks she is in withdra wals. Pt sees Dr. Black (natural resource officer); last appt was 1week ago and she was treated for a vaginal yeast infection, which is improving.Pt denies fever, chills, urinary sx, blood in stool, dyspnea, cou gh, vaginalbleeding, abdominal pain. Denies new sexual partners. Admits smoking occasionalmarij uana, but denies IVDA, cocaine, meth, or etoh use.Past Medical History:Diagnosis Date Lumbar herniated disc PancreatitisPast Surgical History:Proce dure Laterality Date GA GI ENDOSCOPIC ULTRASOUND N/A 018 Procedure: ENDOSCOPIC ULTRASOUND; Surgeon: Amarjit Bahena MBBS; Location:[facility]; S ervice: GastroenterologyFamily HistoryProblem Relation Age of Onset Diabetes Paternal Grandmother Diabetes Maternal AuntSocial HistoryTob acco Use Smoking status: Never Smoker Smokeless tobacco: Never UsedSubstance Use Topics Alcohol use: No Drug use: Yes Types: MarijuanaReview o f SystemsConstitutional: Positive for appetite change (decreased). Negative for chills,diaphor esis and fever.HENT: Negative for ear pain and sore throat.Eyes: Negative for photophobia, r edness and visual disturbance.Respiratory: Negative for cough, shortness of breath and wheezing. Cardiovascular: Negative for chest pain, palpitations and leg swelling.Gastrointestinal: Posit chante for diarrhea, nausea and vomiting. Negative forabdominal pain and blood in stool.Gen itourinary: Negative for dysuria, frequency, urgency, vaginal bleeding andvaginal discharge.Mu sculoskeletal: Positive for arthralgias, back pain and myalgias.Skin: Negative for color change and rash.Neurological: Negative for dizziness, syncope, weakness, light-headedness andnumbness.A ll other systems reviewed and are negative.Physical ExamPulse 98 | Temp 97.9 F (36.6 C) (Oral) | LMP 10/28/2018 | SpO2 99%Physical ExamConstitutional: She is oriented to p erson, place, and time. She appearswell- developed and well-nourished. No distress.Tearful at t imes.HENT:Head: Normocephalic and atraumatic.Mouth/Throat: Oropharynx is c lear and moist.Eyes: Pupils are equal, round, and reactive to light. EOM are normal.Neck: Normal range of motion. Neck supple.Cardiovascular: Normal rate, regular rhythm, normal hear t sounds and intactdistal pulses.No murmur heard.Pulmonary/Chest: Effort normal and breath sounds normal. No respiratorydistress.Abdominal: Soft. Bowel sounds are normal. She exhib its no distension. There istenderness (Mild SP). There is no rebound and no guarding.Lumbar par acervical mild TTP bilat. No CVAT.Musculoskeletal: Normal range of motion. She exhibits no edema or tenderness.Neurological: She is alert and oriented to person, place, and time.Skin : Skin is warm and dry. Capillary refill takes less than 2 seconds. She isnot diaphoretic.Vitals reviewed.ED CourseResults for ARCELIA AUSTIN ( ) as of 02/17/2019 19:02 Ref. Range 02/17/2019 17:45 02/17/2019 18:23WBC Latest Ref Range: 3.9 - 10.7 10^3/L 10.2RBC Latest Ref R yanet: 4.00 - 5.10 10^6/L 3.91 (L)HEMOGLOBIN Latest Ref Range: 12.0 - 14.7 g/dL 11.7 (L)Hematocr it Latest Ref Range: 37.1 - 45.4 % 34.4 (L)MCV Latest Ref Range: 81.9 - 99.9 fL 88.0MCH Latest Ref Range: 26.2 - 32.7 pg 29.9MCHC Latest Ref Range: 30.9 - 33.8 g/dL 34.0 (H)RDW Latest Ref Range: 11.5 - 15.0 % 12.6Platelets Latest Ref Range: 126 - 373 10^3/L 220Abs Neutrophil Count L atest Ref Range: 1,500-8,000 Cells/mm3 7,844Neutrophils Relative Latest Ref Range: 41.7 - 78.9 % 76.9Lymphocytes Relative Latest Ref Range: 10.8 - 45.9 % 15.0Monocytes Relative Latest Ref Rang e: 3.7 - 15.0 % 6.4Eosinophils Relative Latest Ref Range: 0.0 - 5.7 % 0.9Basophils Relative Latest Ref Range: 0.0 - 1.5 % 0.4IG Relative Latest Ref Range: 0.0 - 3.0 % 0.4Neutrophils Absolu te Latest Ref Range: 1.5 - 7.5 10^3/L 7.8 (H)Lymphocytes Absolute Latest Ref Range : 0.7 - 3.6 10^3/L 1.5Monocytes Absolute Latest Ref Range: 0.2 - 1.1 10^3/L 0.7Eosinophils Absolute Latest Ref Range: 0.00 - 0.50 10^3/L 0.09Basophils Absolute Latest Ref Range: 0.0 - 0.1 10^3/L 0.0Sodium Latest Ref Range: 136 - 144 mEq/L 135 (L)Potassium Latest Ref Ra nge: 3.5 - 5.1 mEq/L 3.9Chloride Latest Ref Range: 101 - 111 mEq/L 102CO2 Latest Ref Range: 22 - 32 mEq/L 24BUN Latest Ref Range: 8 - 20 mg/dL 3 (L)Glucose Latest Ref Range: 70 - 110 mg /dL 82CALCIUM Latest Ref Range: 8.5 - 10.1 mg/dL 9.9Creatinine, Ser Latest Ref Range: 0.5 5 - 1.02 mg/dL <0.50 (L)Anion Gap Latest Ref Range: 8 - 17 mEq/L 9eGFR Unknown See CommenteGFR NON Unknown See CommentLipase Latest Ref Range: 22 - 51 U/L 27Magnesium Latest Ref Range: 1.8 - 2.5 mg/dL 1.8BHCG QUANT SERUM Latest Units: mIU/ml 70,492Color, UA Latest Ref Range: Colorless, Yellow, Straw YellowClarity, UA Latest Ref Ran ge: Clear Hazy (A)Specific [place], UA Latest Ref Range: 1.001 - 1.035 1.018pH, UA Lates t Ref Range: 5.0 - 8.0 6.0Protein, UA Latest Ref Range: Negative mg/dL NegativeGlucose, UA Latest Ref Range: Negative mg/dL NegativeKetone UA Latest Ref Range: Negative mg/dL 5 (A)B ilirubin, UA Latest Ref Range: Negative NegativeBlood, UA Latest Ref Range: Negative Moderate (A)Leukocytes, UA Latest Ref Range: Negative NegativeNitrite, UA Latest Ref Range: Ne gative NegativeUrobilinogen, UA Latest Ref Range: Negative mg/dL NegativeWBC Latest Ref R yanet: <6 /HPF 3RBC Latest Ref Range: <3 /HPF 8 (H)Bacteria Latest Units: /HPF FewMUCOU S UA Latest Units: /HPF OccSquam Epithel, UA Latest Ref Range: <1 /HPF 5 (H)ED Course as of Feb 18 1904Fri Feb 17, 20191843 Pt still nauseated, but sx slightly improved. C/o mild itchy sensat ion. Pthas had no emesis in ED. Will PO challenge.1902 Pt able to tolerate po intake of water h ere in the ED after zofran.Discussed the results with the patient and plan for discharge. The patientunderstands and agrees with the plan. All of the patient's questions wereaddressed. Will write rx for zofran.Procedures BEDSIDE ULTRASOUND - Obstetrics ------- Interpreted by the emergency providerTime: 18:00Consent: Informed consent, after d iscussion of the risks, benefits, andalternatives to the procedure, was obtained.Timeout: A timeo ut to verify the correct patient, procedure, and site wasperformed.Indication: 16 weeks pregna ntStructures/Organs Investigated: uterus, fetusInterpretation: FHR 140 bpm, fetus moving all extremitiesPost-procedure: Patient tolerated the procedure well with no immediatecomp lications.MDMNumber of Diagnoses or Management OptionsOpiate withdrawal:Diagnosis manag ement comments: 23 y/o F 16 weeks here for opiate w/d -n/v/d, arthralgias. Labs unr emarkable, bedside US shows good FHR and movement.Treated in ED with zofran, IVF. Pt able to tolerate po intake with water. Willd/c and recommend f/u with PCP. Return precautio ns given.Clinical Impression: Opiate withdrawalDisposition: Argentina Mooney, LbmvpeuwEW22/09/19 9803 ----Attestation signed by Vivi Hutchison MD at 2018 3:04 PMI saw and evaluated the patient, and reviewed the Resident's note for keon borja administrative purposes. Please refer to my complete note for most accurateand detai led HPI, ROS, exam, ED treatment and disposition. ID Date Data Source [id number] 02/20/2019 01:37:13 PM EST [facility] ORIGINAL: WedFeb 20, 2019 1:37 PM by Areli Echavarria MDEXAMINATION:US OB AFTER 1ST TRIMESTERHISTORY:Encounter for supervisi on of other normal in second trimesterCOMPARISON:01/02/2019TECHNIQUE: sonography was performed.FINDINGS:Ultrasound examinatio n of the gravid uterus was performed.There is a single live intrauterine station in [facility].There is anterior placenta without evidence placenta previa.The amniotic fl uid index measures 9.7 cm. biometry corresponds to 17 weeks.EDC based on 1st sonogram is 08/07/2019. heart and body motion were detected during course of th is examination.Evaluation of anatomy demonstrates normal right ventricular ou tflow tract, stomach, bladder,longitudinal spine, transverse spine, choroid plexus, nose and lips, placental cord insertion,cerebellum, cisterna magna, nu chal fold, kidneys, left ventricular outflow tract, four-chamberheart, and three-vess el cordIMPRESSION:1. Single Live Intrauterine Gestation averaging 17 weeks Name Value Range Interpretation Code Description Data Nayely rce(s) Supporting Document(s ) ID Date Data Source [id number] 02/17/2019 06:33:00 PM EST [facility] Name Value Range Interpretation Description Data Sup porting Code Source(s) Document(s ) CLARITY Hazy Clear Abnormal [facility] (applies to Health non-numeric results) COLOR Yellow Colorless, [facility] Yellow, Health Straw SPECIFIC 1.018 1.001-1.03 [facility] GRAVITY UA 5 Health GLUCOSE UR Negative Negative [facility] mg/dL Health PH UA 6.0 5.0-8.0 [facility] BLOOD UA Moderate Negative Abnormal [facility] (applies to Health non-numeric results) PROTEIN UR Negative Negative [facility] mg/dL Health BILIRUBIN UA Negative Negative [facility] UROBILINOGEN Negative Negative [facility] UA mg/dL Health KETONE UA 5 mg/dL Negative Abnormal [facility] (applies to Health non-numeric results) NITRITE UA Negative Negative [facility] LEUKOCYTE Negative Negative [facility] ESTERASE UA Health WBC UA 3 /HPF <6 [facility] RBC UA 8 /HPF <3 Above high [facility] normal Health BACTERIA UA Few /HPF [facility] MUCOUS UA Occ /HPF [facility] SQUAMOUS 5 /HPF <1 Above high [facility] EPITHELIAL normal Health ID Date Data Source [id number] 02/17/2019 06:43:00 PM EST [facility] Name Value Range Interpretation Code Description Data Supporting Source(s) Document(s ) BHCG QUANT [address] [facility] SERUM mIU/ml ID Date Data Source [id number] 02/17/2019 06:37:00 PM EST [facility] Name Value Range Interpretation Description Data Sup porting Code Source(s) Document(s ) SODIUM 135 136-144 Below low normal [facility] mEq/L Health POTASSIUM 3.9 3.5-5.1 [facility] mEq/L Health CHLORIDE 102 101-111 [facility] mEq/L Health CO2 24 mEq/L 22-32 [facility] BLOOD UREA 3 mg/dL 8-20 Below low normal [facility] NITROGEN [facility] GLUCOSE 82 mg/dL 70-110 [facility] CALCIUM 9.9 8.5-10.1 [facility] mg/dL Health CREATININE 0.55-1.0 Below low normal [facility] 2 Health ANION GAP 9 mEq/L 8-17 [facility] EGFR [facility] EGFR NON [facility] ID Date Data Source [id number] 02/17/2019 06:14:00 PM EST [facility] Name Value Range Interpretation Code Description Data Nayely rce(s) Supporting Document(s ) LIPASE 27 U/L 22-51 [facility] ID Date Data Source [id number] 02/17/2019 06:14:00 PM EST [facility] Name Value Range Interpretation Description Data Sup porting Code Source(s) Document(s ) MAGNESIUM 1.8 mg/dL 1.8-2.5 [facility] ID Date Data Source [id number] 02/17/2019 05:59:00 PM EST [facility] Name Value Range Interpretation Description Data Sup porting Code Source(s) Document(s ) WBC 10.2 3.9-10.7 [facility] 10^3/ Health L RBC 3.91 4.00-5.1 Below low normal [facility] 10^6/ 0 Health L HEMOGLOBIN 11.7 12.0-14. Below low normal [facility] g/dL 7 Health HEMATOCRIT 34.4 % 37.1-45. Below low normal [facility] 4 [facility] MCV 88.0 fL 81.9-99. [facility] 9 [facility] MCH 29.9 pg 26.2-32. [facility] 7 [facility] MCHC 34.0 30.9-33. Above high normal [facility] g/dL 8 Health RDW 12.6 % 11.5-15. [facility] 0 [facility] PLATELET COUNT 220 126-373 [facility] 10^3/ Health L NEUTROPHILS 7.8 1.5-7.5 Above high normal [facility] ABSOLUTE COUNT 10^3/ Health L LYMPHOCYTES 1.5 0.7-3.6 [facility] ABSOLUTE COUNT 10^3/ Health L MONOCYTES 0.7 0.2-1.1 [facility] ABSOLUTE COUNT 10^3/ Health L EOSINOPHILS 0.09 0.00-0.5 [facility] ABSOLUTE COUNT 10^3/ 0 Health L BASOPHILS 0.0 0.0-0.1 [facility] ABSOLUTE COUNT 10^3/ Health L NEUTROPHILS 76.9 % 41.7-78. [facility] RELATIVE 9 Health PERCENT LYMPHOCYTES 15.0 % 10.8-45. [facility] RELATIVE 9 Health PERCENT MONOCYTES 6.4 % 3.7-15.0 [facility] RELATIVE Health PERCENT EOSINOPHILS 0.9 % 0.0-5.7 [facility] PERCENT BASOPHILS 0.4 % 0.0-1.5 [facility] RELATIVE Health PERCENT IG RELATIVE 0.4 % 0.0-3.0 [facility] PERCENT Health ANC AUTO DIFF 7844 1,500-8, [facility] Cells/mm 000 Health 3 ID Date Data Source [id number] 02/11/2019 02:42:46 PM EDT [facility] Name Value Range Interpretation Description Data Sup porting Code Source(s) Document(s ) [facility] Counselor [facility] Interface Message Text Take tylenol 650 mg every 6 hours as nee ded for pain.Rest, increase fluids.Stretch and using heating pad as instructed.Avoi d aggravating activities.Follow-up with PCP within 1 week.No work until re-evaluated by a PCP to determine return date and/or whether ornot restrictions need to be ma de.Report to the ED with any excruciating pain, inability to hold your urine,devel opment of fever, numbness or tingling. ID Date Data Source [id number] 02/03/2019 10:43:30 PM EDT [employer] Name Value Range Interpretation Description Data Sup porting Code Source(s) Document(s ) Insurance Counselor [facility] Interface Message Text HISTORY OF PRESENT I LLNESS 02/03/2019, 5:37 PM. History Provided by: patient Chief C eric: Gary Austin is a 23 y.o. female with a PMHx and PSHx as list ed belowwho presents to the ED with complaints of multiple episodes of non b loody emesisthat has been constant since onset 8 AM this morning. The patient chuckie joshi is currently 14 weeks , . She sates that since the beginning ofher , she has been experiencing multiple episodes of non bloody emesisea ch day. Patient states that the emesis has been under control, up until thismorning when she woke up experiencing nausea.She states that she has not takenany nausea medication, as Zofran PO does not work. This prompted the patient toseek further eval uation in the ED today. The patient has no further complaintsat this time. Patient denies vaginal discharge, vaginal bleeding, fevers,chills, chest pain, shortness of breath, abdominal pain, diarrhea, dysuria,headache, dizziness, or tingling . Patient is currently taking vitamins.PCP: Eunice [facility] - Internal REVIEW OF SYSTEMS --Review of SystemsConstitutional: Negative for chills and fever.Respiratory: Negati ve for cough and shortness of breath.Cardiovascular: Negative for ches t pain and palpitations.Gastrointestinal: Positive for nausea and vomiting. Negati ve for abdominal painand diarrhea.Genitourinary: Negative for dys uria.Musculoskeletal: Negative for back pain and falls.Neurological: Negative for diz ziness, tingling, focal weakness and headaches.All other systems reviewed and are negative. PAST HISTORY -Past Medical History:Diagnosis Date Lumbar herniated disc PancreatitisPast Surgical History:Proce dure Laterality Date GA GI ENDOSCOPIC ULTRASOUND N/A 018 Procedure: ENDOSCOPIC ULTRASOUND; Surgeon: Amarjit Bahena MBBS; Location: [facility]; Service: GastroenterologySocial History:Social Hi storyTobacco Use Smoking status: Never Smoker Smokeless tobacco: Never UsedSubstance Use Topics Alcohol use: No Drug use: YesThe patient's home medicat ions have been reviewed.Allergies: Dilaudid [hydromorphone]; Amoxicillin; and Reglan [metoclopramide] PHYSICAL EXAM --BP 107/58 (BP Location: Left arm, Patient Position: Sitting) | Pulse 93 | Temp98 F (36.7 C) (Oral) | Resp 18 | LMP 10/28/2018 | SpO2 99% |? NoConstitutional: Well developed, well nourished. GCS is 15. No evidence ofre spiratory distress.Head: Atraumatic. Normocephalic.Eyes: PERRL. Conjunctiva e are not pale.ENT: Mucous membranes are moist and intact. Oropharynx is clear a nd symmetric.Neck: Supple. No nuchal rigidity. Full ROM.Cardiovascular: Reg ular rate. Regular rhythm. No murmurs, rubs, or gallops.Pulmonary/Chest: Clear to auscultation bilaterally. No wheezing, rales orrhonchi.Abdominal: Soft and non -distended. There is no tenderness. No rebound,guarding, or rigidity. No organ omegaly. Normal bowel sounds. No pulsatilemass.Back: No CVA tenderness.E xtremities: No edema. No cyanosis. Distal pulses are 2+. No calftenderness.Skin: Skin is warm and dry. No petechiae. No purpura.Neurological: Alert, awake, and appropriate. Normal speech. No acute focalneurological deficits are appreciat ed.Psychiatric: Good eye contact. Normal affect and behavior. ---- LABORATORY RESULTS Results for ord ers placed or performed during the hospital encounter of 02/03/19Basic metabolic arizmendi elResult Value Ref Range Sodium 136 136 - 144 mEq/L Potassium 3.5 3.5 - 5.1 mEq/L Chlo ride 102 101 - 111 mEq/L CO2 22 22 - 32 mEq/L BUN 4 (L) 8 - 20 mg/dL Glucose 82 70 - 1 10 mg/dL Calcium 9.3 8.5 - 10.1 mg/dL Creatinine <0.50 (L) 0.55 - 1.02 mg/dL A nion Gap 12 8 - 17 mEq/L eGFR eGFR NON AMERICANCBC au to differentialResult Value Ref Range WBC 13.8 (H) 3.9 - 10.7 10^3/L RBC 3.97 (L ) 4.00 - 5.10 10^6/L Hemoglobin 11.9 (L) 12.0 - 14.7 g/dL Hematocrit 34.2 (L) 37. 1 - 45.4 % MCV 86.1 81.9 - 99.9 fL MCH 30.0 26.2 - 32.7 pg MCHC 34.8 (H) 30.9 - 33.8 g/dL RDW 12.4 11.5 - 15.0 % Platelets 237 126 - 373 10^3/L Neutrophils Absolute 10.8 (H) 1.5 - 7.5 10^3/L Lymphocytes Absolute 1.9 0.7 - 3.6 10^3/L Monocyte s Absolute 0.9 0.2 - 1.1 10^3/L Eosinophils Absolute 0.12 0.00 - 0.50 10^3/L Basop hils Absolute 0.1 0.0 - 0.1 10^3/L Neutrophils Relative 78.0 41.7 - 78.9 % Lymphocytes Relative 14.0 10.8 - 45.9 % Monocytes Relative 6.4 3.7 - 15.0 % Eosi nophils Relative 0.9 0.0 - 5.7 % Basophils Relative 0.4 0.0 - 1.5 % IG Relative 0.3 0.0 - 3.0 % Abs Neutrophil Count 10,764 (H) 1,500-8,000 Cells/vs6JaumfoxangErcxmu Va lue Ref Range Clarity, UA Hazy (A) Clear Color, UA Yellow Colorless, Yellow, Stra w Specific [place], UA 1.020 1.001 - 1.035 Glucose, UA Negative Negative mg/dL pH, UA 6.0 5.0 - 8.0 Blood, UA Small (A) Negative Protein, UA Negative Negative mg/dL Bili ardon, UA Negative Negative Urobilinogen, UA Negative Negative mg/dL Ketone UA 20 (A ) Negative mg/dL Nitrite, UA Negative Negative Leukocytes, UA Moderate (A) Neg ative WBC, UA 1 <6 /HPF RBC, UA 3 (H) <3 /HPF Bacteria Few /HPF Mucous Few /HPF Squam Epithel, UA 6 (H) <1 /HPF Yeast Budding Rare /HPFMagnesiumResult Value Ref Range Magn esium 1.8 1.8 - 2.5 mg/dL PROGRES S NOTES Orders Placed This EncounterProcedures Basic metabolic panel CBC auto differential Urinalysis MagnesiumMedicationssodium chloride 0.9 % bolus 1,000 mL (0 mLs Intravenous Stopped 02/03/19 583)ondansetron (ZOFRAN) injec tion 4 mg (4 mg IV Push Given 02/03/19 1739)Time: 5:39 PM4mg Zofran given at th is time for nausea.Time: 5:40 PMOne liter of IV fluids hung at this time for hydratio n.Time: 6:52 PMThe patient's airway and vitals are currently stable. Patient is restingcomfortably. Awaiting results.Time: 7:35 PMRe-evaluation. EP at patient's b edside. Patient is in NAD, resting comfortablyat this time. Her abdomen is soft, non-tender and she is tolerating PO in theED. Results discussed with patient in full detail in which they verbalize theirunderstanding and all questions hav e been answered at this time. Pt is stablefor discharge; EP provided specifi c conditions for return, emphasized theimportance of follow-up, and provided counseling as below. Patient instructedto follow-up with OB and PCP. -------- MEDICAL DECISION MAKING Vital Signs: Revi ewed the patient s vital signs.Nursing Notes: Reviewed an d utilized the nursing notes.Old Medical Records: The patient's available past co dical records and pastencounters were reviewed.Laboratory Studies: Ordered and independently interpreted laboratory tests, seeabmahendra.Consultations/Discussions: The emergency provider discussed patient care withanother provider. Please refer to [facility] details as documented above.Additional MDM and Provider Notes: -- IMPRESSION AND DISPOSITION IMPRESSION1. Nausea and vomiting in pregnancyDISPOSITIONDisposition: Dischar gePatient condition: Good COUNSE LING Counseling : The emergency provider has spoken with the patient and discussedtoday s findings, in addition to providing spe cific details for the plan ofcare. Questions are answered. There is agreement with t plan. Discussed thereturn indications and importance of follow-up.SCRIBE ATTESTATI ONBy signing my name below, I, Misty Ching ED Scribe attest that thisdocumentation has been prepared under the direction and in the presence ofProviVivi Prado MD.Electronically Signed: Misty Ching ED Scribe 02/03/2019, 7:38 PMI, Darlene Hutchison MD, personally performed the services described in thisdocumentation. All [facility] record entries made by the scribe were at [facility] carrollwoodirection and in my presence. I have reviewed the chart and dischargeinstructions (if applicable) and agree that the recor d reflects my personalperformance and is accurate and complete.Vivi Hutchison MD, EP. 02/03/2019, 7:38 PMSVivi quiroga MD02/03/19 2243 ID Date Data Source [id number] 02/03/2019 07:43:20 PM EDT [facility] Name Value Range Interpretation Description Data Sup porting Code Source(s) Document(s ) Insurance Counselor [facility] Interface Message Text Pt states that she feels a lot better ID Date Data Source [id number] 02/05/2019 01:09:00 PM EDT [facility] Name Value Range Interpretation Description Data Sup porting Code Source(s) Document(s ) CULTURE No pathogens [facility] isolated ID Date Data Source [id number] 02/03/2019 07:58:00 PM EDT [facility] Name Value Range Interpretation Description Data Sup porting Code Source(s) Document(s ) CLARITY Hazy Clear Abnormal [facility] (applies to Health non-numeric results) COLOR Yellow Colorless, [facility] Yellow, Health Straw SPECIFIC 1.020 1.001-1.03 [facility] GRAVITY UA 5 Health GLUCOSE UR Negative Negative [facility] mg/dL Health PH UA 6.0 5.0-8.0 [facility] BLOOD UA Small Negative Abnormal [facility] (applies to Health non-numeric results) PROTEIN UR Negative Negative [facility] mg/dL Health BILIRUBIN UA Negative Negative [facility] UROBILINOGEN Negative Negative [facility] UA mg/dL Health KETONE UA 20 mg/dL Negative Abnormal [facility] (applies to Health non-numeric results) NITRITE UA Negative Negative [facility] LEUKOCYTE Moderate Negative Abnormal [facility] ESTERASE UA (applies to Health non-numeric results) WBC UA 1 /HPF <6 [facility] RBC UA 3 /HPF <3 Above high [facility] normal Health BACTERIA UA Few /HPF [facility] MUCOUS UA Few /HPF [facility] SQUAMOUS 6 /HPF <1 Above high [facility] EPITHELIAL normal Health YEAST BUDDING Rare /HPF [facility] UA Health ID Date Data Source [id number] 02/03/2019 06:18:00 PM EDT [facility] Name Value Range Interpretation Description Data Sup porting Code Source(s) Document(s ) MAGNESIUM 1.8 mg/dL 1.8-2.5 [facility] ID Date Data Source [id number] 02/03/2019 06:17:00 PM EDT [facility] Name Value Range Interpretation Description Data Sup porting Code Source(s) Document(s ) SODIUM 136 136-144 [facility] mEq/L Health POTASSIUM 3.5 3.5-5.1 [facility] mEq/L Health CHLORIDE 102 101-111 [facility] mEq/L Health CO2 22 mEq/L 22-32 [facility] BLOOD UREA 4 mg/dL 8-20 Below low normal [facility] NITROGEN [facility] GLUCOSE 82 mg/dL 70-110 [facility] CALCIUM 9.3 8.5-10.1 [facility] mg/dL Health CREATININE 0.55-1.0 Below low normal [facility] 2 Health ANION GAP 12 mEq/L 8-17 [facility] EGFR [facility] EGFR NON [facility] D[facility]CH ID Date Data Source [id number] 02/03/2019 05:50:00 PM EDT [facility] Name Value Range Interpretation Description Data Sup porting Code Source(s) Document(s ) WBC 13.8 3.9-10.7 Above high normal [facility] 10^3/ Health L RBC 3.97 4.00-5.1 Below low normal [facility] 10^6/ 0 Health L HEMOGLOBIN 11.9 12.0-14. Below low normal [facility] g/dL 7 Health HEMATOCRIT 34.2 % 37.1-45. Below low normal [facility] 4 Health MCV 86.1 fL 81.9-99. [facility] 9 [facility] MCH 30.0 pg 26.2-32. [facility] 7 [facility] MCHC 34.8 30.9-33. Above high normal [facility] g/dL 8 Health RDW 12.4 % 11.5-15. [facility] 0 [facility] PLATELET COUNT 237 126-373 [facility] 10^3/ Health L NEUTROPHILS 10.8 1.5-7.5 Above high normal [facility] ABSOLUTE COUNT 10^3/ Health L LYMPHOCYTES 1.9 0.7-3.6 [facility] ABSOLUTE COUNT 10^3/ Health L MONOCYTES 0.9 0.2-1.1 [facility] ABSOLUTE COUNT 10^3/ Health L EOSINOPHILS 0.12 0.00-0.5 [facility] ABSOLUTE COUNT 10^3/ 0 Health L BASOPHILS 0.1 0.0-0.1 [facility] ABSOLUTE COUNT 10^3/ Health L NEUTROPHILS 78.0 % 41.7-78. [facility] RELATIVE 9 Health PERCENT LYMPHOCYTES 14.0 % 10.8-45. [facility] RELATIVE 9 Health PERCENT MONOCYTES 6.4 % 3.7-15.0 [facility] RELATIVE Health PERCENT EOSINOPHILS 0.9 % 0.0-5.7 [facility] RELATIVE Health PERCENT BASOPHILS 0.4 % 0.0-1.5 [facility] RELATIVE Health PERCENT IG RELATIVE 0.3 % 0.0-3.0 [facility] PERCENT Health ANC AUTO DIFF 94737 1,500-8, Above high normal [facility] Cells/mm 000 Health 3 ID Date Data Source [id number] 02/03/2019 05:27:45 PM EDT [facility] Name Value Range Interpretation Description Data Sup porting Code Source(s) Document(s ) Insurance Counselor [facility] Interface Message Text Pt presents to ed with complaints of vom iting. Pt states she is 14 weeks and has been vomiting everyday since her pre gnancy started. ID Date Data Source [id number] 01/05/2019 10:44:33 AM EDT [facility] Name Value Range Interpretation Description Data Sup porting Code Source(s) Document(s ) Insurance Counselor [facility] Interface Message Text PROGRESS NOT ES Time: 4:[address] Mina (EP). Please refer to their documentation forHPI, ROS, PMHx, SHx, and Physical Exam.Time: 4:35 PMUrinalysis Resulted.Time: 5:15 PMRe-evaluation. EP at patient's bedsid e. The patient appears better and restingcomfortably. EP discussed the UA results with patient, that patient has UTIhere. Advised to have Urinalysis done in Ob office in two days and patient madeaware to follow up the culture. Naveen cordova for discharge.Time: 5:26 PMRe-evaluation. EP at patient's bedside. Patient is in NAD, resting comfortablyat this time. Results discussed with patient in full d etail in which theyverbalize their understanding and all questions have bee n answered at this time.Pt is stable for discharge; EP provided specific conditio ns for return,emphasized the importance of follow-up, and provided counseling as be low.Patient instructed to follow-up with PCP; TIMERS INSPECTOR. LABORATO RY RESULTS Results for orders placed or performed during e hospital encounter of 01/02/19CB auto differentialResult Value Ref Range WBC 1 3.1 (H) 3.9 - 10.7 10^3/L RBC 4.39 4.00 - 5.10 10^6/L Hemoglobin 13.1 12.0 - 14. 7 g/dL Hematocrit 38.4 37.1 - 45.4 % MCV 87.5 81.9 - 99.9 fL MCH 29.8 26.2 - 32.7 pg M CHC 34.1 (H) 30.9 - 33.8 g/dL RDW 11.9 11.5 - 15.0 % Platelets 256 126 - 373 10^3/L Neutrophils Absolute 11.0 (H) 1.5 - 7.5 10^3/L Lymphocytes Absolute 1.2 0.7 - 3.6 10^3/L Monocytes Absolute 0.7 0.2 - 1.1 10^3/L Eosinophils Absolute 0.08 0.00 - 0.50 10^3/L Basophils Absolute 0.0 0.0 - 0.1 10^3/L Neutrophils Relative 83.9 ( H) 41.7 - 78.9 % Lymphocytes Relative 9.4 (L) 10.8 - 45.9 % Monocytes Relative 5.5 3.7 - 15.0 % Eosinophils Relative 0.6 0.0 - 5.7 % Basophils Relative 0.2 0.0 - 1.5 % IG Relative 0.4 0.0 - 3.0 % Abs Neutrophil Count 10,991 (H) 1,500-8,000 Cells/oj2Othyp me tabolic panelResult Value Ref Range Sodium 136 136 - 144 mEq/L Potassium 3.6 3.5 - 5.1 mEq/L Chloride 102 101 - 111 mEq/L CO2 24 22 - 32 mEq/L BUN 7 (L) 8 - 20 mg/dL Glu cose 99 70 - 110 mg/dL Calcium 10.0 8.5 - 10.1 mg/dL Creatinine 0.61 0.55 - 1.02 m g/dL Anion Gap 10 8 - 17 mEq/L eGFR >60.0 >=60.0 ml/min/1.732m2 eGF R NON >60.0 >=60.0 ml/min/1.975l1EuekcwywtXsmmrn Value Ref Range Magnesium 2.0 1.8 - 2.5 mg/dLUrinalysisResult Value Ref Range Cl arity, UA Cloudy (A) Clear Color, UA Yellow Colorless, Yellow, Straw Specific Gravit y, UA 1.025 1.001 - 1.035 Glucose, UA Negative Negative mg/dL pH, UA 5.0 5.0 - 8.0 Blood, UA Moderate (A) Negative Protein, UA 30 (A) Negative mg/dL Bilirubin, UA Negative Negative Urobilinogen, UA Negative Negative mg/dL Ketone UA 80 (A) Negativ e mg/dL Nitrite, UA Negative Negative Leukocytes, UA Moderate (A) Negative WBC , UA 2 <6 /HPF RBC, UA 50 (H) <3 /HPF Bacteria Mod /HPF Mucous Many /HPF Squam Epithel, UA 12 (H) <1 /HPFhCG, quantitative, pregnancyResult Value Ref Range BHCG LIVE NT SERUM 187,867 mIU/mlLipaseResult Value Ref Range Lipase 33 22 - 51 U/LType and scre enResult Value Ref Range ABO/RH AB NEG ANTIBODY SCREEN NEG - MEDICAL DECISION MAKING Vital Signs: Revi ewed the patient s vital signs.Nursing Notes: Reviewed an d utilized the nursing notes.Old Medical Records: The patient's available past me dical records and pastencounters were reviewed.Laboratory Studies: Independent ly interpreted laboratory tests, see above.Imaging Studies: Imaging studies w ere ordered. Radiologist's interpretationincludes:US OB [address] (Results Pending)Additional MDM and Provider Notes: I MPRESSION AND DISPOSITION IMPRESSION1. Hyperem esis gravidarumDISPOSITIONDisposition: DischargePatient condition: Good-------- COUNSELING Counseling : The emergency provider has spoken with the patient and discussedtoday s findings, in addition to providing spe cific details for the plan of careand counseling regarding the diagnosis and p rognosis. Questions are answered.There is agreement with the plan. Discussed the r eturn indications andimportance of follow-up.SCRIBE ATTESTATIONBy signing m y name below, I, Salena Izaguirre, ED Scribe, attest thatthis documentation nolasco s been prepared under the direction and in the presence ofProviShazia Duong,*.Electronically Signed: Salena Izaguirre ED Scribe. 01/02/2019, 5:26 PMI, Shazia Pierre,*, personally performed the services described inthis documentation. All medical record entries made by the scribe were at mydirection a nd in my presence. I have reviewed the chart and dischargeinstructions (if applicable ) and agree that the record reflects my personalperformance and is accurate and complete.Shazia Pierre,*, EP. 01/02/2019, 5:26 PMGeorNorberto Amin t, DO01/05/19 1044 ID Date Data Source [id number] 01/03/2019 07:42:01 PM EDT [facility] Name Value Range Interpretation Description Data Sup porting Code Source(s) Document(s ) Insurance Counselor [employer] [facility] Interface Message Text HISTORY OF PRESENT ILLNESS 01/02/2019, 4:03 PM. History Provided by: patient Chief C omplaint: Emesis Arcelia Austin is a 23 y.o. female GI 9 weeks with a P MHx andPSHx as listed below presenting to the ED for constant emesis 5 days.Assoc iated symptoms include nausea. Patient only had vomiting and nausea whentrying to ea t solid foods. Patient able to tolerate fluids. Patient otherwisedenies fever, c hills, chest pain, shortness of breath, cough, abdominal pain,diarrhea, dysuria, numbness, tingling, headache and dizziness.PCP: E[facility]ice [facility] - Internal REVIEW OF SYSTEMS --Review of SystemsConstitutional: Negative for chills and fever.Respiratory: Negati ve for cough and shortness of breath.Cardiovascular: Negative for ches t pain and leg swelling.Gastrointestinal: Positive for nausea and vomiting. Negati ve for abdominal pain.Genitourinary: Negative for dysuria.Musculoskeletal: Negative fo r falls.Neurological: Negative for dizziness, loss of consciousness and headaches.All other systems reviewed and are negative. PA ST HISTORY Past Medical History:Diagnosis Date Lumbar herniated disc PancreatitisPast Surgical History:Proce dure Laterality Date GA GI ENDOSCOPIC ULTRASOUND N/A 018 Procedure: ENDOSCOPIC ULTRASOUND; Surgeon: Amarjit Bahena MBBS; Location: [facility]; Service: GastroenterologySocial History:Social Hi storySubstance Use Topics Smoking status: Never Smoker Smokeless tobacco: Never Used Alcohol use NoThe patient's home medica tions have been reviewed.Allergies: Dilaudid [hydromorphone]; Amoxicillin; and Reglan [metoclopramide] PHYSICAL EXAM --BP 114/74 (BP Location: Right arm, Patient Position: Sitting) | Pulse 101 |Temp 9 8.4 F (36.9 C) (Oral) | Resp 18 | Ht 5' 4" (1.626 m) | Wt 112 lb(50.8 kg) | LM P 10/28/2018 | SpO2 98% | BMI 19.22 kg/mConstitutional: Well developed, w ell nourished. GCS is 15. No evidence ofrespiratory distress.Head: Atraumatic . Normocephalic.Eyes: PERRL. Conjunctivae are not pale.ENT: Mucous membranes are moist and intact. Oropharynx is clear and symmetric.Neck: Supple. No nuchal rigi dity. Full ROM.Cardiovascular: Regular rate. Regular rhythm. No murmurs, rubs , or gallops.Pulmonary/Chest: Clear to auscultation bilaterally. No wheezing, rales orrhonchi.Abdominal: Soft and non-distended. There is no tenderness. No rebound,guarding, or rigidity. No organomegaly. Normal bowel sounds. No pulsatilemass.Back: No CVA tenderness.Extremities: No edema. No c yanosis. Distal pulses are 2+. No calftenderness.Skin: Skin is warm and d ry. No petechiae. No purpura.Neurological: Alert, awake, and appropriate. Normal s peech. No acute focalneurological deficits are appreciated.Psychiatric: Good eye c ontact. Normal affect and behavior. LABORA TORY RESULTS Pending.------- PROGRESS NOTES Orders Placed This EncounterProcedures CBC auto differential Basic metabolic panel Magnesium Urinalysis Draw for type and screen hCG, quantitative, Type and screenMedicationssodium chlori de 0.9 % bolus 1,000 mL (1,000 mLs Intravenous New Bag )ondanset maty (ZOFRAN) injection 4 mg (4 mg IV Push Given 01/02/19 3264)Time: 3:34 PMZofran o rdered to treat nausea.Time: 4:00 PMAvailable labs and radiology reviewed in which the patient has been made aware.On re-evaluation, patient is noted to be re sting comfortably in no acutedistress. Case discussed with Elyssa Dowd DO , (EP), [facility] Patient has been signed out to Dr. Lunsford, [place] nunez DO at thistime, pending results. MEDICAL D ECISION MAKING Vital Signs: Reviewed the patient s vital signs.Nursing Notes: Reviewed an d utilized the nursing notes.Old Medical Records: The patient's available past co dical records and pastencounters were reviewed.Laboratory Studies: Ordered and independently interpreted laboratory tests, seeabove. IMPRESS ION AND DISPOSITION IMPRESSIONPending.DI SPOSITIONDisposition: Pending.SCRIBE ATTESTATIONBy signing my name below, I, Kiran Green, ED Scribe, attest that thisdocumentation has been prepared unde r the direction and in the presence ofМарина Sue MD.Electron ically Signed: HARI Landa. 01/02/2019, 4:00 PMI, Марина Mina M D, personally performed the services described in thisdocumentation. All [facility] record entries made by the scribe were at mydirection and in my presence. I have reviewed the chart and dischargeinstructions (if applicable) and agree that the recor d reflects my personalperformance and is accurate and complete.Марина Mina MD, EP. 01/02/2019, 4:06 PMМарина Mina MD01/03/19 194 ID Date Data Source [id number] 01/02/2019 05:30:35 PM EDT [facility] ORIGINAL: WedJan 02, 2019 5:30 PM by Aureliano Cochran MDEXAMINATION:US OB 1ST TRIMESTERHISTORY:9 weeks preg, cramping, hyperemesisCOMPARISON:12/16/2018TECHNIQU E:Real-time ultrasound was performed of the pelvis was performed to evaluate for int rauterinegestation.FINDINGS:There is a single viable intrauterine gestation identified with a crown-rump length of 25.0 mmcorresponding to a 9 week 1 day gestat ional size. This demonstrates essentially normal intervalgrowth from the prior exa mination. The placenta is annular. There is been interval resolution ofpreviously id entified small subchorionic hemorrhage. There is a normal amount of amniotic flu id.A yolk sac is not identified. cardiac activity is identified at 148 be ats per minute. TheEDC based on the 1st examination is is 08/07/2019. There is been interval resolution of thepreviously identified small subchorionic hemorrhage .Uterus: 9.8 x 7.2 x 6.1 cm.Right ovary: 2.9 x 2.2 x 2.3 cm.Left ovary: 3.0 x 1.5 x 1 .6 cm.There is no evidence of free or loculated fluid or abscess collections w ithin the pelvis.IMPRESSION:1. Single viable intrauterine gestation at 9 weeks 1 day size, demonstrating normal interval growthfrom prior exam.2. cardiac a ctivity is identified at 148 beats per minute.3. Interval resolution of previou sly identified small subchorionic hemorrhage. Name Value Range Interpretation Code Description Data Nayely rce(s) Supporting Document(s ) ID Date Data Source [id number] 01/04/2019 08:39:00 AM EDT [facility] Name Value Range Interpretation Description Data Sup porting Code Source(s) Document(s ) CULTURE No pathogens [facility] isolated ID Date Data Source [id number] 01/02/2019 04:56:35 PM EDT [facility] Name Value Range Interpretation Description Data Sup porting Code Source(s) Document(s ) Insurance Counselor [facility] Interface Message Text To ultrassound ID Date Data Source [id number] 01/02/2019 05:15:00 PM EDT [facility] Name Value Range Interpretation Description Data Sup porting Code Source(s) Document(s ) BHCG QUANT [id number] [facility] SERUM mIU/ml ID Date Data Source [id number] 01/02/2019 04:35:00 PM EDT [facility] Name Value Range Interpretation Description Data Sup porting Code Source(s) Document(s ) CLARITY Cloudy Clear Abnormal [facility] (applies to Health non-numeric results) COLOR Yellow Colorless, [facility] Yellow, Health Straw SPECIFIC 1.025 1.001-1.03 [facility] GRAVITY UA 5 Health GLUCOSE UR Negative Negative [facility] mg/dL Health PH UA 5.0 5.0-8.0 [facility] BLOOD UA Moderate Negative Abnormal [facility] (applies to Health non-numeric results) PROTEIN UR 30 mg/dL Negative Abnormal [facility] (applies to Health non-numeric results) BILIRUBIN UA Negative Negative [facility] UROBILINOGEN Negative Negative [facility] UA mg/dL Health KETONE UA 80 mg/dL Negative Abnormal [facility] (applies to Health non-numeric results) NITRITE UA Negative Negative [facility] LEUKOCYTE Moderate Negative Abnormal [facility] ESTERASE UA (applies to Health non-numeric results) WBC UA 2 /HPF <6 [facility] RBC UA 50 /HPF <3 Above high [facility] normal Health BACTERIA UA Mod /HPF [facility] MUCOUS UA Many /HPF [facility] SQUAMOUS 12 /HPF <1 Above high [facility] EPITHELIAL normal Health ID Date Data Source [id number] 01/02/2019 04:39:00 PM EDT [facility] Name Value Range Interpretation Code Description Data Nayely rce(s) Supporting Document(s ) LIPASE 33 U/L 22-51 [facility] ID Date Data Source [id number] 01/02/2019 04:25:00 PM EDT [facility] Name Value Range Interpretation Description Data Sup porting Code Source(s) Document(s ) MAGNESIUM 2.0 mg/dL 1.8-2.5 [facility] ID Date Data Source [id number] 01/02/2019 04:24:00 PM EDT [facility] Name Value Range Interpretation Description Data Sup porting Code Source(s) Document(s ) SODIUM 136 136-144 [facility] mEq/L Health POTASSIUM 3.6 3.5-5.1 [facility] mEq/L Health CHLORIDE 102 101-111 [facility] mEq/L Health CO2 24 [facility]Eq[facility]L 22-[facility]A 7 mg/dL 8-20 Below low normal [facility] NITROGEN Health GLUCOSE 99 mg/dL 70-110 [facility] CALCIUM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
--- NOTE | 2020-01-21 13:09 | PDOC ---
History of Present Illness - General Chief Complaint: Nausea Stated Complaint: NAUSEA History Source: Patient Exam Limitations: No Limitations - History of Present Illness Initial Comments: 01/21/20 13:05 Patient is a 24-year-old female with history of chronic pancreatitis, c/s X 1, here with complaints of nausea x2.5 days. She has had decreased appetite and vomiting and feels she is getting dehydrated and weak. Has not eaten today due to vomiting last night. LMP 12/30. She denies abdominal pain, fever, chills, dysuria. PMHX as above PSOCHX: neg etoh, drug, cig ALL: NKDA GENERAL/CONSTITUTIONAL: [No fever or chills. No weakness. No weight change.] HEAD, EYES, EARS, NOSE AND THROAT: [No change in vision. No ear pain or discharge. No sore throat.] CARDIOVASCULAR: [No chest pain or shortness of breath.] RESPIRATORY: [No cough, wheezing, or hemoptysis.] GASTROINTESTINAL: [(+) nausea, vomiting, (-) diarrhea or constipation. No rectal bleeding.] GENITOURINARY: [No dysuria, frequency, or change in urination.] MUSCULOSKELETAL: [No joint or muscle swelling or pain. No neck or back pain.] SKIN AND BREASTS: [No rash or easy bruising.] NEUROLOGIC: [No headache, vertigo, loss of consciousness, or loss of sensation.] PSYCHIATRIC: [No depression or anxiety.] ENDOCRINE: [No increased thirst. No abnormal weight change.] HEMATOLOGIC/LYMPHATIC: [No anemia, easy bleeding, or history of blood clots.] ALLERGIC/IMMUNOLOGIC: [No hives or skin allergy. No latex allergy.] GENERAL: [The patient is awake, alert, and fully oriented, in no acute distress.] HEAD: [Normal with no signs of trauma.] EYES: [Pupils equal, round and reactive to light, extraocular movements intact, sclera anicteric, conjunctiva clear.] ENT: [Ears normal, nares patent, oropharynx clear without exudates. Moist mucous membranes.] NECK: [Normal range of motion, supple without lymphadenopathy, JVD, or masses.] LUNGS: [Breath sounds equal, clear to auscultation bilaterally. No wheezes, and no crackles.] HEART: [Regular rate and rhythm, normal S1 and S2 without murmur, rub.] ABDOMEN: [Soft, nontender, normoactive bowel sounds. No guarding, no rebound. No masses.] EXTREMITIES: [Normal range of motion, no edema. No clubbing or cyanosis. No cords, erythema, or tenderness.] NEUROLOGICAL: [Cranial nerves II through XII grossly intact. Normal speech, normal gait.] PSYCH: [Normal mood, normal affect.] SKIN: [Warm, Dry, normal turgor, no rashes or lesions noted.] Past History - Medical History Allergies/Adverse Reactions: Allergies Allergy/AdvReac Type Severity Reaction Status Date / Time amoxicillin Allergy Verified 01/21/20 12:47 Home Medications: Ambulatory Orders Nitrofurantoin Monohyd/M-Cryst [Macrobid -] 100 mg PO BID #14 capsule 01/21/20 Ondansetron [Zofran *Odt*] 4 mg SL TID #21 od.tablet 01/21/20 COPD: No GI Disorders: Yes (chronic pancreatitis) - Reproductive History Is Patient Now?: No - Immunization History TDAP Vaccination: Yes - Psycho-Social/Smoking History Smoking History: Never smoked Have you smoked in the past 12 months: No *Physical Exam - Vital Signs Last Vital Signs Temp Pulse Resp BP Pulse Ox 97 F L 102 H 18 109/82 98 01/21/20 12:44 01/21/20 12:44 01/21/20 12:44 01/21/20 12:44 01/21/20 12:44 ED Treatment Course - LABORATORY CBC & Chemistry Diagram: 01/21/20 14:00 01/21/20 14:00 Medical Decision Making - Medical Decision Making 01/21/20 13:05 Patient is a 24-year-old female with history of chronic pancreatitis, c/s X 1, here with complaints of nausea x2.5 days. She has had decreased appetite and vomiting and feels she is getting dehydrated and weak. Has not eaten today due to vomiting last night. LMP 12/30. She denies abdominal pain, fever, chills, dysuria. Nausea and vomiting with a benign abd exam will get labs and hydrate with IVF, zofran UA reviewed, noted to have a UTI will give Macrobid I discussed the physical exam findings, ancillary test results and final diagnoses with the patient. I answered all of the patient's questions. The patient was satisfied with the care received and felt comfortable with the discharge plan and treatment plan. The Patient agrees to follow up with the primary care physician within 24-72 hours. Selected Entries 01/21/20 15:25 Temperature 98.3 F Pulse Rate [ 90 Left Radial] Respiratory 16 Rate Blood Pressure 123/68 [Left Arm] O2 Sat by Pulse 100 Oximetry (%) Discharge - Discharge Information Problems reviewed: Yes Clinical Impression/Diagnosis: UTI (urinary tract infection) Qualifiers: Urinary tract infection type: site unspecified Hematuria presence: without hematuria Qualified Code(s): N39.0 - Urinary tract infection, site not specified Condition: Stable Disposition: HOME - Additional Discharge Information Prescriptions: Nitrofurantoin Monohyd/M-Cryst [Macrobid -] 100 mg PO BID #14 capsule Ondansetron [Zofran *Odt*] 4 mg SL TID #21 od.tablet - Follow up/Referral Referrals: Blanca Amaya MD [Staff Physician] - - Patient Discharge Instructions Patient Printed Discharge Instructions: DI for Urinary Tract Infection (UTI) Additional Instructions: Your Discharge Instructions: You must call primary care physician within 24 hours to arrange follow-up. Return to the Emergency Department with any new, persistent or worsening symptoms, for fever, chills, SOB, dizziness or any other concerning changes that may occur. We have provided you with a name of primary care doctor for referral for primary care issues. Call for your blood tests follow-up. - Post Discharge Activity
[2020-01-21] MEDS ORDERED: SODIUM CHLORIDE 0.9% 500 ML INFUS.BAG IV ONE (13:11)
[2020-01-21] MEDS ORDERED: ONDANSETRON 4 MG/2 ML VIAL IVPUSH ONE (13:11)
[2020-01-21 14:13] LABS: BASO % 0.5 % (0-2.0); HEMATOCRIT 39.3 % (32.4-45.2); HEMOGLOBIN 13.1 GM/dL (10.7-15.3); LYMPH % 15.9 % (8-40); MCH 28.6 pg (25.7-33.7); MCHC 33.4 g/dl (32.0-36.0); MEAN CELL VOLUME 85.6 fl (80-96); MEAN PLT VOLUME 9.2 fl (7.5-11.1); MONO % 6.5 % (3.8-10.2); NEUT % 76.1 % (42.8-82.8); PLATELET COUNT 262 K/MM3 (134-434); RBC 4.59 M/mm3 (3.60-5.2); RDW 14.5 % (11.6-15.6); WHITE BLOOD COUNT 8.9 K/mm3 (4.0-10.0)
[2020-01-21 14:18] LABS: EPI CELLS >36 /uL (0-25.1); HCG,QUALITATIVE URINE Negative; HYALINE CASTS 2 /uL (0-3.1); URINE APPEARANCE CLEAR; URINE BACTERIA 2278 /uL (0-1359); URINE BILIRUBIN NEGATIVE (NEGATIVE); URINE COLOR YELLOW; URINE GLUCOSE (UA) NEGATIVE (NEGATIVE); URINE KETONE NEGATIVE (NEGATIVE); URINE LEUK ESTERASE 2+ (NEGATIVE); URINE NITRITE NEGATIVE (NEGATIVE); URINE PROTEIN NEGATIVE (NEGATIVE); URINE RBC 26 /uL (0-23.9); URINE UROBILINOGEN 0.2 mg/dL (0.2-1.0); URINE WBC 27 /uL (0-25.8)
[2020-01-21] MEDS ORDERED: NITROFURANTOIN MACROCRYSTAL 50 MG CAPSULE (FP) PO SCH (15:00)
[2020-01-21 15:06] LABS: ALBUMIN 4.2 g/dl (3.4-5.0); BLOOD UREA NITROGEN 8.9 mg/dL (7-18); CALCIUM 9.1 mg/dL (8.5-10.1); CREATININE 0.5 mg/dL (0.55-1.3); POTASSIUM 4.3 mmol/L (3.5-5.1)
[2020-01-21] MEDS ORDERED: NITROFURANTOIN MACROCRYSTAL 50 MG CAPSULE (FP) ONE (15:23)
[2020-01-21 16:16] VITALS: BP 123/68; PULSE 90; TEMP 98.3
== END 2020-01-21 15:50 | disposition home or self-care (01) ==
LOC: JER 12:42
PROC: 3E033NZ Introduction of Analgesics, Hypnotics, Sedatives into Peripheral Vein, Percutaneous Approach (ICD-10-PCS; principal; 2020-01-21)
DX: N39.0 Urinary tract infection, site not specified (principal)
CPT/HCPCS: 36415; 80053; 81003; 83690; 84702; 84703; 85025; 87086; 99285-25

== ENCOUNTER 2020-09-27 13:32 | Emergency (ER) | payer BC, OTHER ==
[2020-09-27 13:40] VITALS: TEMP 98.6; BMI 20.5
[2020-09-27] MEDS ORDERED: SODIUM CHLORIDE 1,000 ML IV STA (14:50)
[2020-09-27] MEDS ORDERED: ONDANSETRON 4 MG/2 ML VIAL IVPUSH ONE (14:50)
[2020-09-27] MEDS ORDERED: ONDANSETRON 4 MG/2 ML VIAL ONE (15:16)
[2020-09-27 15:57] LABS: BASO % 0.6 % (0-2.0); EOS % 0.2 % (0-4.5); HEMATOCRIT 41.3 % (32.4-45.2); HEMOGLOBIN 14.1 GM/dL (10.7-15.3); LYMPH % 15.9 % (8-40); MCH 29.5 pg (25.7-33.7); MEAN CELL VOLUME 86.8 fl (80-96); MEAN PLT VOLUME 9.6 fl (7.5-11.1); MONO % 12.3 % (3.8-10.2); PLATELET COUNT 207 10^3/uL (134-434); RBC 4.76 M/mm3 (3.60-5.2); RDW 13.2 % (11.6-15.6); WHITE BLOOD COUNT 7.6 K/mm3 (4.0-10.0)
[2020-09-27 16:14] LABS: CALCIUM 9.5 mg/dL (8.5-10.1)
[2020-09-27 16:15] LABS: ALBUMIN 4.2 g/dl (3.4-5.0); BLOOD UREA NITROGEN 12.4 mg/dL (7-18)
[2020-09-27 16:18] LABS: CREATININE 0.8 mg/dL (0.55-1.3)
[2020-09-27 16:19] LABS: BILIRUBIN,TOTAL 1.4 mg/dL (0.2-1); TOT PROT 9.2 g/dl (6.4-8.2)
[2020-09-27 17:06] LABS: EPI CELLS >36 /uL (0-25.1); HYALINE CASTS 4 /uL (0-3.1); URINE APPEARANCE CLOUDY; URINE BACTERIA 3686 /uL (0-1359); URINE BILIRUBIN NEGATIVE (NEGATIVE); URINE COLOR ORANGE; URINE GLUCOSE (UA) NEGATIVE (NEGATIVE); URINE KETONE NEGATIVE (NEGATIVE); URINE LEUK ESTERASE TRACE (NEGATIVE); URINE NITRITE NEGATIVE (NEGATIVE); URINE PROTEIN 2+ (NEGATIVE); URINE RBC 91 /uL (0-23.9); URINE WBC 97 /uL (0-25.8)
[2020-09-27 19:13] VITALS: BP 122/82; PULSE 80
== END 2020-09-27 19:13 | disposition home or self-care (01) ==
LOC: JER 13:32
PROC: 3E033GC Introduction of Other Therapeutic Substance into Peripheral Vein, Percutaneous Approach (ICD-10-PCS; principal; 2020-09-27)
PROC: 3E0337Z Introduction of Electrolytic and Water Balance Substance into Peripheral Vein, Percutaneous Approach (ICD-10-PCS; 2020-09-27)
DX: R11.2 Nausea with vomiting, unspecified (principal)
CPT/HCPCS: 36415; 80053; 81003; 83690; 84703; 85025; 86308; 87086; 87804; 87880; 99284-25

== ENCOUNTER 2020-09-30 16:43 | Emergency (ER) | payer BC, OTHER ==
[2020-09-30] MEDS ORDERED: PROMETHAZINE HCL 25 MG/1 ML VIAL IM ONE ×2 (16:59→17:27)
[2020-09-30] MEDS ORDERED: SODIUM CHLORIDE 1,000 ML IV STA (16:59)
[2020-09-30 17:06] VITALS: BP 104/68; PULSE 124; TEMP 98.9; BMI 19.7
[2020-09-30] MEDS ORDERED: PROMETHAZINE HCL 25 MG/1 ML VIAL ONE (17:25)
[2020-09-30 17:35] LABS: BASO % 1.8 % (0-2.0); EOS % 1.5 % (0-4.5); HEMATOCRIT 39.8 % (32.4-45.2); HEMOGLOBIN 13.3 GM/dl (10.7-15.3); LYMPH % 18.6 % (8-40); MCH 29.3 pg (25.7-33.7); MCHC 33.4 g/dl (32.0-36.0); MEAN CELL VOLUME 87.7 fl (80-96); MEAN PLT VOLUME 8.6 fl (7.5-11.1); MONO % 9.3 % (3.8-10.2); NEUT % 68.8 % (42.8-82.8); PLATELET COUNT 290 10^3/uL (134-434); RBC 4.55 M/mm3 (3.60-5.2); RDW 12.4 % (11.6-15.6); WHITE BLOOD COUNT 9.5 K/mm3 (4.0-10.8)
[2020-09-30 17:44] LABS: ALBUMIN 4.1 g/dl (3.4-5.0); BILIRUBIN,TOTAL 0.9 mg/dl (0.2-1); CALCIUM 8.9 mg/dl (8.5-10); CREATININE 0.8 mg/dl (0.55-1.3); TOT PROT 8.6 g/dl (6.4-8.2)
== END 2020-09-30 19:01 | disposition home or self-care (01) ==
LOC: FER 16:43
PROC: 3E0233Z Introduction of Anti-inflammatory into Muscle, Percutaneous Approach (ICD-10-PCS; principal; 2020-09-30)
PROC: 3E0337Z Introduction of Electrolytic and Water Balance Substance into Peripheral Vein, Percutaneous Approach (ICD-10-PCS; 2020-09-30)
DX: R11.2 Nausea with vomiting, unspecified (principal); B27.90 Infectious mononucleosis, unspecified without complication
CPT/HCPCS: 36415; 80053; 83690; 85025; 99284-25

== ENCOUNTER 2022-02-08 13:03 | Emergency (ER) | payer BC, OTHER ==
[2022-02-08 13:26] VITALS: BP 108/72; PULSE 74; RESP 18; TEMP 98; BMI 21.4
[2022-02-08] MEDS ORDERED: IBUPROFEN 600 MG TABLET (FP) PO ONE (15:23)
== END 2022-02-08 15:45 | disposition home or self-care (01) ==
LOC: JERFT 13:03 → JER 13:03 → JERFT 15:45
DX: T80.1XXA Vascular complications following infusion, transfusion and therapeutic injection, initial encounter (principal)
CPT/HCPCS: 99283-25

== ENCOUNTER 2022-09-10 17:03 | Emergency (ER) | payer BC, OTHER ==
[2022-09-10 17:14] VITALS: BP 100/63; PULSE 61; RESP 18; TEMP 98.3; BMI 21.4
[2022-09-10] MEDS ORDERED: SODIUM CHLORIDE 1,000 ML IV STA (17:17)
[2022-09-10] MEDS ORDERED: ONDANSETRON 4 MG/2 ML VIAL IVPUSH ONE (17:17)
[2022-09-10 17:59] LABS: EPI CELLS >36 /uL (0-25.1); HCG,QUALITATIVE URINE Negative; HYALINE CASTS 13 /uL (0-3.1); URINE APPEARANCE CLOUDY; URINE BACTERIA 631 /uL (0-1359); URINE BILIRUBIN 1+ (NEGATIVE); URINE COLOR DK YELLOW; URINE GLUCOSE (UA) NEGATIVE (NEGATIVE); URINE KETONE TRACE (NEGATIVE); URINE LEUK ESTERASE NEGATIVE (NEGATIVE); URINE NITRITE NEGATIVE (NEGATIVE); URINE PROTEIN 1+ (NEGATIVE); URINE WBC 45 /uL (0-25.8)
[2022-09-10] MEDS ORDERED: ONDANSETRON 4 MG/2 ML VIAL ONE (18:10)
[2022-09-10 18:23] LABS: URINE RBC 65 /uL (0-23.9)
[2022-09-10 18:30] LABS: BASO % 0.6 % (0-2.0); EOS % 2.5 % (0-4.5); HEMOGLOBIN 14.3 GM/dL (10.7-15.3); LYMPH % 32.8 % (8-40); MCH 30.4 pg (25.7-33.7); MCHC 34.9 g/dl (32.0-36.0); MEAN PLT VOLUME 9.3 fl (7.5-11.1); MONO % 8.2 % (3.8-10.2); NEUT % 55.9 % (42.8-82.8); PLATELET COUNT 264 10^3/uL (134-434); RBC 4.71 M/mm3 (3.60-5.2); RDW 13.3 % (11.6-15.6); WHITE BLOOD COUNT 7.2 K/mm3 (4.0-10.0)
[2022-09-10 18:54] LABS: POTASSIUM 3.9 mmol/L (3.5-5.1)
[2022-09-10 18:55] LABS: CALCIUM 9.8 mg/dL (8.5-10.1)
[2022-09-10 18:56] LABS: ALBUMIN 4.6 g/dl (3.4-5.0)
[2022-09-10 18:59] LABS: CREATININE 0.8 mg/dL (0.55-1.3)
[2022-09-10 19:01] LABS: BILIRUBIN,TOTAL 1.2 mg/dL (0.2-1); TOT PROT 8.7 g/dl (6.4-8.2)
[2022-09-10] MEDS ORDERED: PROCHLORPERAZINE INJECTION 10 MG/2 ML VIAL IM ONE (19:07)
[2022-09-10] MEDS ORDERED: PROCHLORPERAZINE INJECTION 10 MG/2 ML VIAL ONE (19:17)
== END 2022-09-10 20:47 | disposition home or self-care (01) ==
LOC: JER 17:03
PROC: 3E033GC Introduction of Other Therapeutic Substance into Peripheral Vein, Percutaneous Approach (ICD-10-PCS; principal; 2022-09-10)
PROC: 3E023GC Introduction of Other Therapeutic Substance into Muscle, Percutaneous Approach (ICD-10-PCS; 2022-09-10)
PROC: 3E0337Z Introduction of Electrolytic and Water Balance Substance into Peripheral Vein, Percutaneous Approach (ICD-10-PCS; 2022-09-10)
DX: R11.2 Nausea with vomiting, unspecified (principal)
CPT/HCPCS: 36415; 71046-TC-FY; 76705-TC; 80053; 81003; 83690; 84703; 85025; 87086; 87651; 99285-25

== ENCOUNTER 2022-12-14 20:44 | Emergency (ER) | payer BC, OTHER ==
[2022-12-14 21:10] LABS: HCG,QUALITATIVE URINE Negative
[2022-12-14] MEDS ORDERED: SODIUM CHLORIDE 1,000 ML IV STA (21:17)
[2022-12-14 21:19] VITALS: BP 120/82; PULSE 78; RESP 16; TEMP 98.4; BMI 20.5
[2022-12-14 21:24] LABS: AMORP URATES FEW /hpf (NONE SEEN); EPITHELIAL CELLS MODERATE /hpf
[2022-12-14] MEDS ORDERED: METOCLOPRAMIDE HCL INJECTION 10 MG/2 ML VIAL IVPB ONE (22:23)
[2022-12-14] MEDS ORDERED: METOCLOPRAMIDE HCL INJECTION 10 MG/2 ML VIAL ONE (22:25)
[2022-12-14] MEDS ORDERED: diphenhydrAMINE HCL 12.5 MG/5 ML UNIT-DOSE CUPS PO ONE ×2 (22:25→22:52)
[2022-12-14] MEDS ORDERED: diphenhydrAMINE HCL 12.5 MG/5 ML PEDIATRIC LIQUID PO ONE ×2 (22:25→22:52)
[2022-12-14 22:37] LABS: HEMATOCRIT 43.9 % (32.4-45.2); HEMOGLOBIN 14.9 G/dL (10.7-15.3); MCH 30.8 pg (25.7-33.7); MCHC 33.9 g/dl (32.0-36.0); MEAN CELL VOLUME 90.9 fl (80-96); MEAN PLT VOLUME 9.6 fl (7.5-11.1); PLATELET COUNT 244.4 10^3/uL (134-434); RBC 4.83 10^6/uL (3.60-5.2); RDW 13.7 % (11.6-15.6); WHITE BLOOD COUNT 9.5 10^3/uL (4.0-10.8)
[2022-12-14 22:51] LABS: ALBUMIN 5.1 g/dl (3.4-5.0); BLOOD UREA NITROGEN 8.2 mg/dl (7-18); CALCIUM 10.4 mg/dl (8.5-10.1); CREATININE 0.6 mg/dl (0.6-1.3); POTASSIUM 3.7 mmol/L (3.5-5.1); SGOT/AST 21.5 U/L (15-37); SGPT/ALT 18.4 U/L (7-52); TOT PROT 8.3 g/dl (6.4-8.2)
[2022-12-14 22:59] LABS: PLATELET ESTIMATE ADEQUATE
[2022-12-14 23:54] LABS: BILIRUBIN,TOTAL 1.1 mg/dL (0.2-1)
[2022-12-15] MEDS ORDERED: DEXTROSE 5%-WATER 500 ML PVC-FREE INFUS.BAG IV ONE ×2 (23:04)
== END 2022-12-14 23:33 | disposition home or self-care (01) ==
LOC: FER 20:44
PROC: 3E033GC Introduction of Other Therapeutic Substance into Peripheral Vein, Percutaneous Approach (ICD-10-PCS; principal; 2022-12-14)
PROC: 3E0337Z Introduction of Electrolytic and Water Balance Substance into Peripheral Vein, Percutaneous Approach (ICD-10-PCS; 2022-12-14)
DX: K52.9 Noninfective gastroenteritis and colitis, unspecified (principal); R11.2 Nausea with vomiting, unspecified; R63.8 Other symptoms and signs concerning food and fluid intake
CPT/HCPCS: 36415; 80053; 81003; 81015; 84703; 85027; 87086; 99284-25

== ENCOUNTER 2024-08-03 14:04 | Observation (INO) | payer BC ==
[2024-08-03 15:14] VITALS: BMI 24.0
[2024-08-03] MEDS ORDERED: ONDANSETRON 4 MG/2 ML VIAL ONE (16:08)
[2024-08-03] MEDS: SODIUM CHLORIDE 0.9% 500 ML INFUS.BAG IV ONE ×2 (16:11→18:12)
[2024-08-03] MEDS: ONDANSETRON 4 MG/2 ML VIAL IVPUSH ONE (16:12)
[2024-08-03 16:36] LABS: ABSOLUTE IMMATURE GRANULOCYTES 0.03 x10^3/uL (0.0-0.031); BASOPHILS # 0.06 x10^3/uL (0.01-0.08); EOSINOPHIL % 2.7 % (0.7-5.8); HEMATOCRIT 42.2 % (34.1-44.9); HEMOGLOBIN 13.9 g/dL (11.2-15.7); MCHC 32.9 g/dl (32.2-35.5); MEAN CELL VOLUME 88.3 fl (79.4-94.8); MEAN PLT VOLUME 10.9 fl (9.4-12.3); MONOCYTE # 0.84 x10^3/uL (0.24-0.86); MONOCYTE % 7.5 % (4.7-12.5); PLATELET COUNT 303 x10^3/uL (182-369); RDW 12.8 % (12.1-16.5)
[2024-08-03 17:07] LABS: POTASSIUM 5.3 mmol/L (3.5-5.1)
[2024-08-03 17:10] LABS: BLOOD UREA NITROGEN 9.7 mg/dL (7-18); CALCIUM 10.5 mg/dL (8.5-10.1)
[2024-08-03 17:13] LABS: CREATININE 0.8 mg/dL (0.55-1.3)
[2024-08-03 17:15] LABS: BILIRUBIN,TOTAL 0.7 mg/dL (0.2-1); TOT PROT 9.4 g/dl (6.4-8.2)
[2024-08-03] MEDS ORDERED: KETOROLAC TROMETHAMINE 30 MG/1 ML VIAL ONE (17:37)
[2024-08-03] MEDS: KETOROLAC TROMETHAMINE 30 MG/1 ML VIAL IVPUSH ONE (17:42)
[2024-08-03] MEDS ORDERED: MORPHINE SULFATE 2 MG/ML SYRINGE ONE (18:04)
[2024-08-03] MEDS: morphine CARPU-JECT 2 MG/1 ML DISP.SYRIN IVPUSH ONE (18:12)
[2024-08-03 20:13] VITALS: RESP 18
[2024-08-03] MEDS ORDERED: ONDANSETRON 4 MG/2 ML VIAL IVPUSH PRN (20:39)
[2024-08-03] MEDS: SODIUM CHLORIDE 1,000 ML IV SCH (22:02)
[2024-08-03] MEDS: ACETAMINOPHEN 1000 MG/100 ML BAG IVPB PRN (22:04)
[2024-08-03 23:06] LABS: HCV DIAGNOSTIC IN-HOUSE W/RFLX NON-REACTIVE (NONREACTIVE)
[2024-08-03 23:07] LABS: HIV INTERPRETATION NEGATIVE (NEGATIVE)
[2024-08-03] MEDS: KETOROLAC TROMETHAMINE 15 MG/ML VIAL IVPUSH PRN (23:21)
[2024-08-04 01:10] LABS: EPI CELLS >36 /uL (0-25.1); HYALINE CASTS 1 /uL (0-3.1); PH,URINE 8.5 (5.0-8.0); URINE APPEARANCE CLOUDY; URINE BACTERIA 1974 /uL (0-1359); URINE BILIRUBIN NEGATIVE (NEGATIVE); URINE COLOR YELLOW; URINE GLUCOSE (UA) NEGATIVE (NEGATIVE); URINE KETONE NEGATIVE (NEGATIVE); URINE LEUK ESTERASE NEGATIVE (NEGATIVE); URINE NITRITE NEGATIVE (NEGATIVE); URINE PROTEIN TRACE (NEGATIVE); URINE RBC 75 /uL (0-23.9); URINE WBC 26 /uL (0-25.8)
[2024-08-04 01:16] LABS: COCAINE, UR NEGATIVE (NEGATIVE); METHADONE, UR NEGATIVE (NEGATIVE); URINE AMPHETAMINES NEGATIVE (NEGATIVE); URINE BARBITURATES NEGATIVE (NEGATIVE); URINE BENZODIAZEPINES NEGATIVE (NEGATIVE)
[2024-08-04 01:17] LABS: PHENCYCLIDINE,URINE NEGATIVE (NEGATIVE)
[2024-08-04] MEDS: diphenhydrAMINE HCL 25 MG CAPSULE (FP) PO ONE (01:32)
[2024-08-04 02:15] LABS: OPIATES, URI POSITIVE (NEGATIVE)
[2024-08-04] MEDS: ENOXAPARIN NA (PORCINE) 40 MG/0.4 ML DISP.SYRIN SQ SCH (09:11)
[2024-08-04 09:13] LABS: ABSOLUTE IMMATURE GRANULOCYTES 0.01 x10^3/uL (0.0-0.031); BASOPHILS # 0.05 x10^3/uL (0.01-0.08); EOSINOPHIL % 6.3 % (0.7-5.8); EOSINOPHILS # 0.47 x10^3/uL (0.04-0.36); HEMATOCRIT 37.1 % (34.1-44.9); HEMOGLOBIN 12.1 g/dL (11.2-15.7); MCHC 32.6 g/dl (32.2-35.5); MEAN CELL VOLUME 88.8 fl (79.4-94.8); MEAN PLT VOLUME 10.8 fl (9.4-12.3); MONOCYTE # 0.73 x10^3/uL (0.24-0.86); MONOCYTE % 9.8 % (4.7-12.5); PLATELET COUNT 257 x10^3/uL (182-369); RDW 12.6 % (12.1-16.5)
[2024-08-04 09:35] LABS: POTASSIUM 3.8 mmol/L (3.5-5.1)
[2024-08-04 09:43] LABS: CALCIUM 9.1 mg/dL (8.5-10.1)
[2024-08-04 09:44] LABS: BLOOD UREA NITROGEN 4.8 mg/dL (7-18); MAGNESIUM 1.8 mg/dL (1.8-2.4)
[2024-08-04 09:47] LABS: CREATININE 0.5 mg/dL (0.55-1.3); PHOSPHOROUS 2.4 mg/dL (2.5-4.9)
[2024-08-04 09:49] LABS: ALBUMIN 3.7 g/dl (3.4-5.0); TOT PROT 6.9 g/dl (6.4-8.2)
[2024-08-04 09:50] LABS: BILIRUBIN,TOTAL 1.3 mg/dL (0.2-1)
[2024-08-04] MEDS: LACTATED RINGERS SOLUTION 1,000 ML/1,000 ML INFUS.BAG IV SCH (10:04)
[2024-08-04] MEDS ORDERED: KETOROLAC TROMETHAMINE 15 MG/ML VIAL IVPUSH PRN (12:27)
[2024-08-04] MEDS ORDERED: ACETAMINOPHEN 1000 MG/100 ML BAG IVPB PRN (12:28)
[2024-08-05 08:31] LABS: HEMATOCRIT 35.8 % (34.1-44.9); HEMOGLOBIN 11.9 g/dL (11.2-15.7); MCHC 33.2 g/dl (32.2-35.5); MEAN CELL VOLUME 87.7 fl (79.4-94.8); MEAN PLT VOLUME 10.3 fl (9.4-12.3); PLATELET COUNT 260 x10^3/uL (182-369); RDW 12.4 % (12.1-16.5)
[2024-08-05 08:54] LABS: POTASSIUM 3.9 mmol/L (3.5-5.1)
[2024-08-05 08:56] LABS: ALBUMIN 3.4 g/dl (3.4-5.0); CALCIUM 9.2 mg/dL (8.5-10.1)
[2024-08-05 08:57] LABS: MAGNESIUM 1.8 mg/dL (1.8-2.4)
[2024-08-05 08:59] LABS: CREATININE 0.5 mg/dL (0.55-1.3)
[2024-08-05 09:01] LABS: TOT PROT 6.6 g/dl (6.4-8.2)
[2024-08-05 14:06] VITALS: TEMP 98.2
[2024-08-05 14:39] VITALS: BP 125/72; PULSE 74
[2024-08-06] MEDS ORDERED: BISACODYL 5 MG TABLET.DR (FP) PO ONE ×2 (16:00)
[2024-08-06] MEDS ORDERED: PEG 3350/NA SULF BICARB CL/KCL 4000 ML SOLN.RECON PO ONE (17:00)
== END 2024-08-05 16:24 | disposition home or self-care (01) ==
LOC: JER 14:04 → JERBED 18:18 → J5S 19:49
PROVIDERS: ADMIT Internal Medicine; ATTEND Physician Assistant
PROC: 3E0333Z Introduction of Anti-inflammatory into Peripheral Vein, Percutaneous Approach (ICD-10-PCS; principal; 2024-08-03)
PROC: 3E0337Z Introduction of Electrolytic and Water Balance Substance into Peripheral Vein, Percutaneous Approach (ICD-10-PCS; 2024-08-03)
PROC: 3E033NZ Introduction of Analgesics, Hypnotics, Sedatives into Peripheral Vein, Percutaneous Approach (ICD-10-PCS; 2024-08-03)
PROC: 3E033GC Introduction of Other Therapeutic Substance into Peripheral Vein, Percutaneous Approach (ICD-10-PCS; 2024-08-03)
DX: K85.00 Idiopathic acute pancreatitis without necrosis or infection (principal); F12.90 Cannabis use, unspecified, uncomplicated; K76.0 Fatty (change of) liver, not elsewhere classified; F11.20 Opioid dependence, uncomplicated; E83.52 Hypercalcemia; R74.01 Elevation of levels of liver transaminase levels
CPT/HCPCS: 36415; 74183-TC; 76705-TC; 80053; 80307; 81003; 82787; 82977; 83690; 83735; 84100; 84478; 84703; 85025; 85027; 86803; 87389; 93005; 93010; 96361; 96374; 96375; 96376; 99285-25; G0378; J0131

== ENCOUNTER 2024-09-06 05:27 | Day surgery (SDC) | payer BC ==
[2024-09-05 16:01] VITALS: BMI 24.0
[2024-09-06 13:20] VITALS: TEMP 98.7
[2024-09-06 13:38] VITALS: RESP 18
[2024-09-06 14:03] VITALS: BP 111/73; PULSE 76
== END 2024-09-06 14:05 | disposition home or self-care (01) ==
LOC: JASU-ENDO 05:27
PROVIDERS: ATTEND Internal Medicine Gastroenterology
PROC: 0DB68ZX Excision of Stomach, Via Natural or Artificial Opening Endoscopic, Diagnostic (ICD-10-PCS; principal; 2024-09-06 12:26)
DX: K85.90 Acute pancreatitis without necrosis or infection, unspecified (principal); K29.50 Unspecified chronic gastritis without bleeding
CPT/HCPCS: 81025; 88305-TC; 88342-TC